=== PATIENT | female | born 1955 | race Caucasian/White ===

== ENCOUNTER 2017-07-04 19:37 | Observation (INO) | payer OTHER ==
[2017-07-04] MEDS ORDERED: Ondansetron 4 MG/2 ML SDV IVPUSH ONE (19:49)
[2017-07-04] MEDS ORDERED: Sodium Chloride 0.9% 1,000 ML IV ONE ×2 (19:49→22:00)
--- NOTE | 2017-07-04 19:53 | EDM.PDOC ---
ED HPI GENERAL MEDICAL PROBLEM - General Chief Complaint: Gastrointestinal Problem Stated Complaint: PT HAS FLU SYMPTOMS Time Seen by Provider: 07/04/17 19:42 Source of Information: Reports: Patient History Limitations: Reports: No Limitations - History of Present Illness INITIAL COMMENTS - FREE TEXT/NARRATIVE: HISTORY AND PHYSICAL: History of present illness: Patient is a 61-year-old female who presents to the emergency room today with complaints of nausea, vomiting and diarrhea since 1:30 this afternoon. She states she has had at least 20 episodes of vomiting and diarrhea today. "I feel weak and tired". Denies any chest pain, shortness of breath or dysuria. She denies any chest pain, shortness of breath, fever or chills. She denies any recent antibiotic use or travel. Review of systems: As per history of present illness and below otherwise all systems reviewed and negative. Past medical history: As per history of present illness and as reviewed below otherwise noncontributory. Surgical history: As per history of present illness and as reviewed below otherwise noncontributory. Social history: No reported history of drug or alcohol abuse. Family history: As per history of present illness and as reviewed below otherwise noncontributory. Physical exam: General: Well-developed and well-nourished 61-year-old female. Alert and oriented. Nontoxic appearing and in no acute distress HEENT: Atraumatic, normocephalic, pupils reactive, negative for conjunctival pallor or scleral icterus, mucous membranes moist, throat clear, neck supple, nontender, trachea midline. Lungs: Clear to auscultation, breath sounds equal bilaterally, chest nontender. Heart: S1S2, regular rate and rhythm - tachycardia Abdomen: Soft, nondistended, diffuse non-specific tenderness. No rebound tenderness. Negative for masses or hepatosplenomegaly. Negative for costovertebral tenderness. Pelvis: Stable nontender. Genitourinary: Deferred. Rectal: Deferred. Extremities: Atraumatic, negative for cords or calf pain. Neurovascular unremarkable. Neuro: Awake, alert, oriented. Cranial nerves II through XII unremarkable. Cerebellum unremarkable. Motor and sensory unremarkable throughout. Exam nonfocal. CBC is a white count of 11.17. Negative CMP, amylase, lipase, and influenza. EKG shows sinus rhythm with tachycardia of 110. UA demonstrates a UTI with +3 bacteria, 15-20 WBCs (will add a urine culture). Patient has had 1 loose stool since being here over the past 2 hours. Vital signs have improved. Patient continues to be up and down to the bathroom to have loose stools. Hospitalist was consulted, agreeable to keeping the patient overnight for observation. Diagnostics: CBC, CMP, amylase, lipase, UA, EKG, stool study Therapeutics: IV fluid, Zofran Impression: #1 Nausea and vomiting #2 Diarrhea #3 UTI #4 Dehydration Plan: Observation admission Definitive disposition and diagnosis as appropriate pending reevaluation and review of above. 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: Neurological History: Reports: Cerebral Aneurysms Oncologic (Cancer) History: Reports: None - Infectious Disease History Infectious Disease History: Reports: Chicken Pox, Mumps - Past Surgical History Female Surgical History: Reports: Hysterectomy, Ureteral Stent Endocrine Surgical History: 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 Musculoskeletal Surgical History: Reports: Other (See Below) Social & Family History - Family History Cardiac: Reports: [place], Other (See Below) Other Cardiac Family History: heart disease Respiratory: Reports: None Psychiatric: Reports: Eating Disorders Endocrine/Metabolic: Reports: Diabetes, type II Oncologic: Reports: Colon - Tobacco Use Smoking Status *Q: Never Smoker Second Hand Smoke Exposure: No - Recreational Drug Use Recreational Drug Use: No ED ROS GENERAL - Review of Systems Review Of Systems: ROS reveals no pertinent complaints other than HPI. ED EXAM, GI/ABD - Physical Exam Exam: See Below (See dictation) Course - Vital Signs Last Recorded V/S: Last Vital Signs Temp 98.3 F 07/06/17 08:00 Pulse 73 07/06/17 08:00 Resp 18 07/06/17 08:00 BP 102/69 07/06/17 08:00 Pulse Ox 96 07/06/17 08:00 - Orders/Labs/Meds Labs: Laboratory Tests 07/04/17 07/04/17 07/04/17 Range/Units 19:58 19:58 20:30 WBC 11.17 H (4.0-11.0) K/uL RBC 4.60 (4.30-5.90) M/uL Hgb 14.1 (12.0-16.0) g/dL Hct 42.0 (36.0-46.0) % MCV 91.3 (80.0-98.0) fL MCH 30.7 (27.0-32.0) pg MCHC 33.6 (31.0-37.0) g/dL RDW Std Deviation 45.4 (28.0-62.0) fl RDW Coeff of Jason 14 (11.0-15.0) % Plt Count 301 (150-400) K/uL MPV 9.10 (7.40-12.00) fL Neut % (Auto) 90.7 H (48.0-80.0) % Lymph % (Auto) 3.8 L (16.0-40.0) % [place] % (Auto) 4.7 (0.0-15.0) % Eos % (Auto) 0.7 (0.0-7.0) % Baso % (Auto) 0.1 (0.0-1.5) % Neut # (Auto) 10.1 H (1.4-5.7) K/uL Lymph # (Auto) 0.4 L (0.6-2.4) K/uL [place] # (Auto) 0.5 (0.0-0.8) K/uL Eos # (Auto) 0.1 (0.0-0.7) K/uL Baso # (Auto) 0.0 (0.0-0.1) K/uL Nucleated RBC % 0.0 /100WBC Nucleated RBCs # 0 K/uL Sodium 141 (136-146) mmol/L Potassium 4.3 (3.5-5.1) mmol/L Chloride 106 (98-110) mmol/L Carbon Dioxide 25 (21-31) mmol/L BUN 16 (6.0-23.0) mg/dL Creatinine 0.9 (0.6-1.5) mg/dL Est Cr Clr Drug Dosing TNP Estimated GFR (MDRD) > 60.0 ml/min Glucose 143 H (60-110) mg/dL Calcium 9.3 (8.8-10.8) mg/dL Total Bilirubin 0.6 (0.1-1.5) mg/dL AST 17 (5-40) IU/L ALT 22 (8-54) IU/L Alkaline Phosphatase 83 (40-150) Total Protein 7.2 (6.0-8.0) g/dL Albumin 4.1 (3.4-4.8) g/dL Globulin 3.1 (2.0-3.5) g/dL Albumin/Globulin Ratio 1.3 (1.3-2.8) Amylase 48 (10-90) U/L Lipase 30 (7-80) U/L Urine Color YELLOW Urine Appearance CLOUDY Urine pH 7.0 (5.0-8.0) Ur Specific [place] 1.020 (1.001-1.035) Urine Protein NEGATIVE (NEGATIVE) mg/dL Urine Glucose (UA) NEGATIVE (NEGATIVE) mg/dL Urine Ketones NEGATIVE (NEGATIVE) mg/dL Urine Occult Blood NEGATIVE (NEGATIVE) Urine Nitrite NEGATIVE (NEGATIVE) Urine Bilirubin NEGATIVE (NEGATIVE) Urine Urobilinogen 0.2 (<2.0) EU/dL Ur Leukocyte Esterase LARGE (NEGATIVE) Urine RBC 3-5 (0-2/HPF) Urine WBC 15-20 (0-5/HPF) Ur Epithelial Cells MANY (NONE-FEW) Urine Bacteria 3+ H (NEGATIVE) Meds: Medications Discontinued Medications Generic Name Dose Route Start Last Admin Trade Name Freq PRN Reason Stop Dose Admin Acetaminophen 650 mg 07/04/17 19:57 07/04/17 20:18 Tylenol PO 07/04/17 19:58 650 mg NOW ONE Administration Acetaminophen 650 mg 07/04/17 23:58 07/06/17 02:53 Tylenol PO 650 mg Q4H PRN Administration Pain Sodium Chloride 1,000 mls @ 999 mls/hr 07/04/17 19:49 07/04/17 20:19 Normal Saline IV 07/04/17 20:49 999 mls/hr STAT ONE Administration Levofloxacin/Dextrose 750 mg/ 150 mls @ 100 mls/hr 07/04/17 22:00 07/04/17 22 :27 Premix IV 07/04/17 23:29 100 mls/hr ONETIME ONE Administration Sodium Chloride 1,000 mls @ 125 mls/hr 07/04/17 22:00 07/04/17 22:26 Normal Saline IV 07/05/17 05:59 125 mls/hr STAT ONE Administration Levofloxacin/Dextrose 750 mg/ 150 mls @ 100 mls/hr 07/05/17 22:30 07/05/17 22 :18 Premix IV 100 mls/hr Q24H GLEN Administration Sodium Chloride 1,000 mls @ 125 mls/hr 07/05/17 03:00 07/06/17 00:52 Normal Saline IV 125 mls/hr ASDIRECTED GLEN Administration Iopamidol 200 ml 07/04/17 20:00 07/05/17 00:29 Isovue Multipack-370 (76%) IVPUSH 07/04/17 20:01 200 ml ONETIME ONE Administration Ketorolac Tromethamine 30 mg 07/04/17 19:54 07/04/17 20:16 Toradol IVPUSH 07/04/17 19:55 30 mg ONETIME ONE Administration Ondansetron HCl 4 mg 07/04/17 19:49 07/04/17 20:15 Zofran IVPUSH 07/04/17 19:50 4 mg ONETIME ONE Administration Ondansetron HCl 4 mg 07/04/17 23:59 07/05/17 02:37 Zofran IVPUSH 4 mg Q3H PRN Administration Nausea/Vomiting Departure - Departure Time of Disposition: 11:37 Disposition: Refer to Observation Clinical Impression: Dehydration UTI (urinary tract infection) Qualifiers: Urinary tract infection type: site unspecified Hematuria presence: without hematuria Qualified Code(s): N39.0 - Urinary tract infection, site not specified Diarrhea Qualifiers: Diarrhea type: unspecified type Qualified Code(s): R19.7 - Diarrhea, unspecified - Discharge Information
[2017-07-04] MEDS ORDERED: Ketorolac 30 MG/ML SDV IVPUSH ONE (19:54)
[2017-07-04] MEDS ORDERED: Acetaminophen 325 MG Tab PO ONE (19:57)
[2017-07-04] MEDS ORDERED: Iopamidol 755 MG/ML 200 ML Multipack Bottle IVPUSH ONE (20:00)
[2017-07-04 20:36] LABS: CHLORIDE,CL 106 mmol/L (98-110); SODIUM,NA 141 mmol/L (136-146)
[2017-07-04] MEDS ORDERED: Levofloxacin/Dextrose 5%-Water 750 MG in Premix Bag 1 BAG IV ONE (22:00)
[2017-07-04] MEDS ORDERED: Ondansetron 4 MG/2 ML SDV IVPUSH PRN (23:59)
[2017-07-05 05:55] LABS: CHLORIDE,CL 110 mmol/L (98-110); SODIUM,NA 139 mmol/L (136-146)
[2017-07-05] MEDS: Sodium Chloride 0.9% 1,000 ML IV SCH ×2 (07:34→15:41)
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
--- NOTE | 2017-07-05 11:05 | CT ---
EXAM DATE: 07/04/17 PATIENT'S AGE: 61 Patient: SHEKHAR SOW Facility: [place], [place] Site . Site : 1955 Study: CT Abdomen/Pelvis [id number] 9:55:28 PM Ordering Physician: Doctor Hernandez Final Report: INDICATION: Abdominal pain. Vomiting and diarrhea. TECHNIQUE: CT abdomen and pelvis acquired with 100 cc Isovue 370 IV contrast. COMPARISON: April 14, 2016. FINDINGS: Lower chest: Unremarkable. Liver: Unremarkable. Normal in size and attenuation. No masses. Gallbladder and bile ducts: Multiple stones and sludge are present in the gallbladder, unchanged. No sign of inflammation or biliary dilatation. Pancreas: Unremarkable. No mass or inflammation. Spleen: Unremarkable. Normal in size. No masses. Adrenal glands: Unremarkable. No nodules. Kidneys: Scarring is present in the right kidney. Kidneys are otherwise unremarkable. GI tract: There is distal diverticulosis without acute inflammation. GI tract is otherwise within normal limits in caliber and appearance. Vasculature: Unremarkable. Lymph nodes: No lymphadenopathy. Omentum/Peritoneum/Abdominal Wall: Unremarkable. No sign of mass or infiltration. No free air or significant free fluid. Pelvis: Uterus is absent. Otherwise unremarkable pelvis. Bones: Unremarkable for age. IMPRESSION: 1. No acute or significant findings and no changes from the prior exam. Specifically, the GI tract is unremarkable except for distal diverticulosis. 2. Stable cholelithiasis without CT evidence of cholecystitis. Please note that all CT scans at this facility use dose modulation, iterative reconstruction, and/or weight-based dosing when appropriate to reduce radiation dose to as low as reasonably achievable. Dictated by Hardeep Bashir MD @ Jul 04 2017 9:58PM (Electronic Signature) Report Signed by Proxy. GOLDEN
[2017-07-05] MEDS: Acetaminophen 325 MG Tab PO PRN (22:23)
[2017-07-05] MEDS ORDERED: Levofloxacin/Dextrose 5%-Water 750 MG in Premix Bag 1 BAG IV SCH (22:30)
[2017-07-06] MEDS: Sodium Chloride 0.9% 1,000 ML IV SCH (00:52)
[2017-07-06] MEDS: Acetaminophen 325 MG Tab PO PRN (02:53)
[2017-07-06 04:43] LABS: CHLORIDE,CL 116 mmol/L (98-110); SODIUM,NA 143 mmol/L (136-146)
[2017-07-06 09:34] VITALS: BP 102/69
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
== END 2017-07-06 09:45 | disposition home or self-care (01) ==
LOC: MW.ED 19:37 → MW.MS 22:00
PROVIDERS: ADMIT Internal Medicine; ATTEND Internal Medicine
DX: A08.4 Viral intestinal infection, unspecified (principal); R11.2 Nausea with vomiting, unspecified; N39.0 Urinary tract infection, site not specified; E66.9 Obesity, unspecified; N20.0 Calculus of kidney; Z98.890 Other specified postprocedural states; Z91.048 Other nonmedicinal substance allergy status; Z88.5 Allergy status to narcotic agent; Z68.30 Body mass index [BMI] 30.0-30.9, adult; Z90.89 Acquired absence of other organs; Z90.49 Acquired absence of other specified parts of digestive tract; Z90.710 Acquired absence of both cervix and uterus
CPT/HCPCS: 36415; 74177; 80048; 80053; 81001; 82150; 83690; 85025; 87046; 87086; 87324; 87328; 87329; 87804; 87899; 96361; 96365; 96366; 96375; 96376; 99285; A9270; G0378; J1885; J1956; J2405; J7040; Q9967; 99284

== ENCOUNTER 2017-08-22 21:27 | Emergency (ER) | payer OTHER ==
[2017-08-22 21:41] VITALS: BP 124/62
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
--- NOTE | 2017-08-23 10:04 | CR ---
EXAM DATE: 08/22/17 PATIENT'S AGE: 61 Patient: SHEKHAR SOW Facility: [place], [place] Site . Site : [id number] Study: XRay Knee Right [id number]/19/2018 10:09:04 PM Ordering Physician: Doctor Hernandez Final Report: INDICATION : Status post fall. 61-year-old female. TECHNIQUE : Right knee, three views. FINDINGS : Right knee alignment normal. Moderate joint effusion in the suprapatellar recess. Patella alignment normal. No fracture identified. No radiopaque soft tissue abnormality. IMPRESSION : Right knee joint effusion. No acute fracture. Dictated by Roberto Caldwell MD @ 08/22/2017 10:12:27 PM Dictated by: Roberto Caldwell MD @ 08/22/2017 22:12:34 (Electronic Signature) Report Signed by Proxy. MTDGinette
== END 2017-08-22 22:34 | disposition home or self-care (01) ==
LOC: MW.ED 21:27
DX: S89.91XA Unspecified injury of right lower leg, initial encounter (principal); Z88.5 Allergy status to narcotic agent; W19.XXXA Unspecified fall, initial encounter
CPT/HCPCS: 73562-26-RT; 73562-RT; 99283

== ENCOUNTER 2018-08-20 00:05 | Emergency (ER) | payer OTHER ==
[2018-08-20] MEDS ORDERED: Sodium Chloride 0.9% 1,000 ML IV ONE (00:08)
[2018-08-20] MEDS ORDERED: Ondansetron 4 MG/2 ML SDV IVPUSH ONE (00:16)
[2018-08-20] MEDS ORDERED: Pantoprazole 40 MG Vial IVPUSH ONE (00:32)
[2018-08-20] MEDS ORDERED: Ketorolac 30 MG/ML SDV IVPUSH ONE (00:32)
[2018-08-20] MEDS ORDERED: Sodium Chloride 0.9% 20 ML ONE (00:40)
--- NOTE | 2018-08-20 01:04 | CR ---
HISTORY: Dizziness COMPARISON: 05/24/2015 FINDINGS: An erect AP view of the chest was obtained at 0019 hours. The lungs remain clear. No focal or diffuse infiltrates are present. The heart remains normal in size. The mediastinum is normal in appearance. The osseous structures are normal in appearance for the patient`s age. IMPRESSION: Normal chest single view. Dictated by Tito Wise MD @ Aug 20 2018 1:01AM Signed by Dr. Tito Wise @ Aug 20 2018 1:02AM
--- NOTE | 2018-08-20 01:18 | CT ---
INDICATION: Dizziness TECHNIQUE: Head CT without contrast. COMPARISON: None FINDINGS: CSF spaces: Within normal limits for age. Brain parenchyma: There are nonspecific low attenuation white matter changes consistent with chronic microvascular disease. No sign of mass, hemorrhage, or midline shift. Skull base and calvarium: The visualized paranasal sinuses and mastoid air cells demonstrate no acute or significant findings. The visualized orbits are grossly unremarkable. No skull fractures. IMPRESSION: 1. No acute findings. 2. Nonspecific white matter disease, typical of chronic microvascular disease. Please note that all CT scans at this facility use dose modulation, iterative reconstruction, and/or weight-based dosing when appropriate to reduce radiation dose to as low as reasonably achievable. Dictated by Kym Wilcox MD @ Aug 20 2018 1:14AM Signed by Dr. Kym Wilcox @ Aug 20 2018 1:16AM
[2018-08-20 01:21] LABS: CHLORIDE,CL 107 mmol/L (98-107); SODIUM,NA 142 mmol/L (136-145)
[2018-08-20] MEDS ORDERED: Levofloxacin 500 MG Tab PO ONE (02:10)
--- NOTE | 2018-08-20 02:14 | EDM.PDOC ---
ED HPI GENERAL MEDICAL PROBLEM - General Chief Complaint: General Stated Complaint: PT SPOKE TO NURSE Time Seen by Provider: 08/20/18 02:11 Source of Information: Reports: Patient - History of Present Illness INITIAL COMMENTS - FREE TEXT/NARRATIVE: HISTORY AND PHYSICAL: History of present illness: []Patient presents with dizziness that began today does not seem to be associated with head position, waxes and wanes, she has not unstable and is not in any distress is able to ambulate without difficulty is otherwise not ill- appearing No fever nausea vomiting chills sweats no chest pain shortness breath headache or palpitation no bowel or urine symptoms Review of systems: As per history of present illness and below otherwise all systems reviewed and negative. Past medical history: As per history of present illness and as reviewed below otherwise noncontributory. Surgical history: As per history of present illness and as reviewed below otherwise noncontributory. Social history: No reported history of drug or alcohol abuse. Family history: As per history of present illness and as reviewed below otherwise noncontributory. Physical exam: HEENT: Atraumatic, normocephalic, pupils reactive, negative for conjunctival pallor or scleral icterus, mucous membranes moist, throat clear, neck supple, nontender, trachea midline. Lungs: Clear to auscultation, breath sounds equal bilaterally, chest nontender. Heart: S1S2, regular, negative for clicks, rubs, or JVD. Abdomen: Soft, nondistended, nontender. Negative for masses or hepatosplenomegaly. Negative for costovertebral tenderness. Pelvis: Stable nontender. Genitourinary: Deferred. Rectal: Deferred. Extremities: Atraumatic, negative for cords or calf pain. Neurovascular unremarkable. Neuro: Awake, alert, oriented. Cranial nerves II through XII unremarkable. Cerebellum unremarkable. Motor and sensory unremarkable throughout. Exam nonfocal. Diagnostics: [CBC CMP troponin UA Head CT no contrast Chest 1 view ] Therapeutics: [ normal saline Zofran 8 mg IV Levaquin 500 by mouth nowand daily Patient offered observation R she requests leave as she would like to go home declines admission for observation ] Impression: [ UTI Dizziness ] Definitive disposition and diagnosis as appropriate pending reevaluation and review of above. - Related Data Allergies Allergy/AdvReac Type Severity Reaction Status Date / Time adhesive tape Allergy Blisters Verified 08/22/17 21:32 codeine Allergy Abdominal Verified 08/22/17 21:32 Pain Home Meds: Home Meds . 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: Musculoskeletal History: Reports: Fracture Neurological History: Reports: Cerebral Aneurysms Endocrine/Metabolic History: Reports: Obesity/BMI 30+ Oncologic (Cancer) History: Reports: None - Infectious Disease History Infectious Disease History: Reports: Chicken Pox, Measles, Mumps - Past Surgical History Female Surgical History: Reports: Hysterectomy, Ureteral Stent Endocrine Surgical History: 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 Musculoskeletal Surgical History: Reports: Other (See Below) Social & Family History - Family History Family Medical History: Noncontributory Cardiac: Reports: [place], Other (See Below) Other Cardiac Family History: heart disease Respiratory: Reports: None Psychiatric: Reports: Eating Disorders Endocrine/Metabolic: Reports: Diabetes, type II Oncologic: Reports: Colon - Tobacco Use Smoking Status *Q: Never Smoker - Caffeine Use Caffeine Use: Reports: Coffee, Soda Caffeine Use Comment: 2 cups daily - Recreational Drug Use Recreational Drug Use: No - Living Situation & Occupation 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 situation: Reports: 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) ED ROS GENERAL - Review of Systems Review Of Systems: See Below ED EXAM, GENERAL - Physical Exam Exam: See Below Course - Vital Signs Last Recorded V/S: Last Vital Signs Temp 98.1 F 08/20/18 00:13 Pulse 73 08/20/18 01:33 Resp 20 08/20/18 01:33 BP 109/47 L 08/20/18 01:33 Pulse Ox 96 08/20/18 01:33 - Orders/Labs/Meds Orders: Active Orders 24 hr Category Date Time Status CULTURE URINE [RM] Stat Lab 08/20/18 00:50 Received levoFLOXacin [Levaquin] Med 08/20/18 02:10 Once 500 mg PO ONETIME ONE Labs: Laboratory Tests 08/20/18 08/20/18 08/20/18 Range/Units 00:38 00:38 00:38 WBC 7.53 (4.0-11.0) K/uL RBC 4.14 L (4.30-5.90) M/uL Hgb 12.8 (12.0-16.0) g/dL Hct 38.4 (36.0-46.0) % MCV 92.8 (80.0-98.0) fL MCH 30.9 (27.0-32.0) pg MCHC 33.3 (31.0-37.0) g/dL RDW Std Deviation 45.8 (28.0-62.0) fl RDW Coeff of Jason 14 (11.0-15.0) % Plt Count 253 (150-400) K/uL MPV 9.10 (7.40-12.00) fL Neut % (Auto) 44.8 L (48.0-80.0) % Lymph % (Auto) 44.5 H (16.0-40.0) % [place] % (Auto) 7.3 (0.0-15.0) % Eos % (Auto) 2.9 (0.0-7.0) % Baso % (Auto) 0.5 (0.0-1.5) % Neut # (Auto) 3.4 (1.4-5.7) K/uL Lymph # (Auto) 3.4 H (0.6-2.4) K/uL [place] # (Auto) 0.6 (0.0-0.8) K/uL Eos # (Auto) 0.2 (0.0-0.7) K/uL Baso # (Auto) 0.0 (0.0-0.1) K/uL Nucleated RBC % 0.0 /100WBC Nucleated RBCs # 0 K/uL Sodium 142 (136-145) mmol/L Potassium 4.2 (3.5-5.1) mmol/L Chloride 107 (98-107) mmol/L Carbon Dioxide 28.3 (21.0-32.0) mmol/L BUN 17 (7.0-18.0) mg/dL Creatinine 0.9 (0.6-1.0) mg/dL Est Cr Clr Drug Dosing 54.30 mL/min Estimated GFR (MDRD) > 60.0 ml/min Glucose 114 H (74-106) mg/dL Calcium 8.8 (8.5-10.1) mg/dL Total Bilirubin 0.2 (0.2-1.0) mg/dL AST 13 L (15-37) IU/L ALT 18 (14-63) IU/L Alkaline Phosphatase 79 (46-116) U/L Troponin I < 0.050 (0.000-0.056) ng/mL Total Protein 6.8 (6.4-8.2) g/dL Albumin 3.1 L (3.4-5.0) g/dL Globulin 3.7 (2.6-4.0) g/dL Albumin/Globulin Ratio 0.8 L (0.9-1.6) Lipase 203 (73-393) U/L Urine Color Urine Appearance Urine pH (5.0-8.0) Ur Specific [place] (1.001-1.035) Urine Protein (NEGATIVE) mg/dL Urine Glucose (UA) (NEGATIVE) mg/dL Urine Ketones (NEGATIVE) mg/dL Urine Occult Blood (NEGATIVE) Urine Nitrite (NEGATIVE) Urine Bilirubin (NEGATIVE) Urine Urobilinogen (<2.0) EU/dL Ur Leukocyte Esterase (NEGATIVE) Urine RBC (0-2/HPF) Urine WBC (0-5/HPF) Ur Epithelial Cells (NONE-FEW) Urine Bacteria (NEGATIVE) 08/20/18 Range/Units 00:50 WBC (4.0-11.0) K/uL RBC (4.30-5.90) M/uL Hgb (12.0-16.0) g/dL Hct (36.0-46.0) % MCV (80.0-98.0) fL MCH (27.0-32.0) pg MCHC (31.0-37.0) g/dL RDW Std Deviation (28.0-62.0) fl RDW Coeff of Jason (11.0-15.0) % Plt Count (150-400) K/uL MPV (7.40-12.00) fL Neut % (Auto) (48.0-80.0) % Lymph % (Auto) (16.0-40.0) % [place] % (Auto) (0.0-15.0) % Eos % (Auto) (0.0-7.0) % Baso % (Auto) (0.0-1.5) % Neut # (Auto) (1.4-5.7) K/uL Lymph # (Auto) (0.6-2.4) K/uL [place] # (Auto) (0.0-0.8) K/uL Eos # (Auto) (0.0-0.7) K/uL Baso # (Auto) (0.0-0.1) K/uL Nucleated RBC % /100WBC Nucleated RBCs # K/uL Sodium (136-145) mmol/L Potassium (3.5-5.1) mmol/L Chloride (98-107) mmol/L Carbon Dioxide (21.0-32.0) mmol/L BUN (7.0-18.0) mg/dL Creatinine (0.6-1.0) mg/dL Est Cr Clr Drug Dosing mL/min Estimated GFR (MDRD) ml/min Glucose (74-106) mg/dL Calcium (8.5-10.1) mg/dL Total Bilirubin (0.2-1.0) mg/dL AST (15-37) IU/L ALT (14-63) IU/L Alkaline Phosphatase (46-116) U/L Troponin I (0.000-0.056) ng/mL Total Protein (6.4-8.2) g/dL Albumin (3.4-5.0) g/dL Globulin (2.6-4.0) g/dL Albumin/Globulin Ratio (0.9-1.6) Lipase (73-393) U/L Urine Color YELLOW Urine Appearance CLEAR Urine pH 5.5 (5.0-8.0) Ur Specific [place] <= 1.005 (1.001-1.035) Urine Protein NEGATIVE (NEGATIVE) mg/dL Urine Glucose (UA) NEGATIVE (NEGATIVE) mg/dL Urine Ketones NEGATIVE (NEGATIVE) mg/dL Urine Occult Blood NEGATIVE (NEGATIVE) Urine Nitrite NEGATIVE (NEGATIVE) Urine Bilirubin NEGATIVE (NEGATIVE) Urine Urobilinogen 0.2 (<2.0) EU/dL Ur Leukocyte Esterase LARGE H (NEGATIVE) Urine RBC 0-2 (0-2/HPF) Urine WBC 15-20 (0-5/HPF) Ur Epithelial Cells MODERATE (NONE-FEW) Urine Bacteria 2+ H (NEGATIVE) Meds: Medications Discontinued Medications Generic Name Dose Route Start Last Admin Trade Name Freq PRN Reason Stop Dose Admin Sodium Chloride 1,000 mls @ 999 mls/hr 08/20/18 00:08 08/20/18 00:52 Normal Saline IV 08/20/18 01:08 999 mls/hr STAT ONE Administration Sodium Chloride Confirm 08/20/18 00:40 08/20/18 00:54 Normal Saline Administered 08/20/18 00:41 20 mls/hr Dose Administration 20 mls @ as directed .ROUTE .STK-MED ONE Ketorolac Tromethamine 30 mg 08/20/18 00:32 08/20/18 00:53 Toradol IVPUSH 08/20/18 00:33 30 mg ONETIME ONE Administration Ondansetron HCl 8 mg 08/20/18 00:16 08/20/18 00:52 Zofran IVPUSH 08/20/18 00:17 8 mg ONETIME ONE Administration Pantoprazole Sodium 80 mg 08/20/18 00:32 08/20/18 00:54 Protonix Iv IVPUSH 08/20/18 00:33 80 mg .BOLUS ONE Administration Departure - Departure Time of Disposition: 02:13 Disposition: Home, Self-Care 01 Condition: Good Clinical Impression: Dizziness UTI (urinary tract infection) Qualifiers: Urinary tract infection type: site unspecified Hematuria presence: without hematuria Qualified Code(s): N39.0 - Urinary tract infection, site not specified - Discharge Information Referrals: PCP,None [Primary Care Provider] - Additional Instructions: The following information is given to patients seen in the emergency department who are being discharged to home. This information is to outline your options for follow-up care. We provide all patients seen in our emergency department with a follow-up referral. The need for follow-up, as well as the timing and circumstances, are variable depending upon the specifics of your emergency department visit. If you don't have a primary care physician on staff, we will provide you with a referral. We always advise you to contact your personal physician following an emergency department visit to inform them of the circumstance of the visit and for follow-up with them and/or the need for any referrals to a consulting specialist. The emergency department will also refer you to a specialist when appropriate. This referral assures that you have the opportunity for follow-up care with a specialist. All of these measure are taken in an effort to provide you with optimal care, which includes your follow-up. Under all circumstances we always encourage you to contact your private physician who remains a resource for coordinating your care. When calling for follow-up care, please make the office aware that this follow-up is from your recent emergency room visit. If for any reason you are refused follow-up, please contact the [facility] emergency department at and asked to speak to the emergency department charge nurse. - My Orders Last 24 Hours: My Active Orders 08/20/18 00:50 CULTURE URINE [RM] Stat 08/20/18 02:10 levoFLOXacin [Levaquin] 500 mg PO ONETIME ONE - Assessment/Plan Last 24 Hours: My Active Orders 08/20/18 00:50 CULTURE URINE [RM] Stat 08/20/18 02:10 levoFLOXacin [Levaquin] 500 mg PO ONETIME ONE
[2018-08-20 03:47] VITALS: BP 116/64
== END 2018-08-20 02:30 | disposition home or self-care (01) ==
LOC: MW.ED 00:05
DX: N39.0 Urinary tract infection, site not specified (principal); R42 Dizziness and giddiness; Z91.09 Other allergy status, other than to drugs and biological substances; Z88.5 Allergy status to narcotic agent
CPT/HCPCS: 36415; 70450; 71045; 80053; 81001; 83690; 84484; 85025; 87086; 96361; 96374; 96375; 99284; A9270; C9113; J1885; J2405; J7040

== ENCOUNTER 2019-02-05 15:32 | Observation (INO) | payer OTHER ==
[2019-02-05] MEDS ORDERED: Sodium Chloride 0.9% 2.5 ML Syringe FLUSH PRN (15:47)
[2019-02-05] MEDS ORDERED: Sodium Chloride 0.9% 10 ML Syringe FLUSH PRN (15:47)
[2019-02-05] MEDS ORDERED: Morphine 4 MG/ML Syringe IVPUSH ONE (15:55)
[2019-02-05] MEDS ORDERED: Sodium Chloride 0.9% 1,000 ML IV ONE ×2 (15:55→18:00)
--- NOTE | 2019-02-05 15:55 | EDM.PDOC ---
ED HPI GENERAL MEDICAL PROBLEM - General Chief Complaint: Abdominal Pain Stated Complaint: STOMACH PAIN Time Seen by Provider: 02/05/19 15:55 Source of Information: Reports: Patient History Limitations: Reports: No Limitations - History of Present Illness INITIAL COMMENTS - FREE TEXT/NARRATIVE: HISTORY AND PHYSICAL: History of present illness: Patient is a 63-year-old female presents to the ED with complaint of right upper quadrant pain. She states the pain woke her up from sleep at 2:00 this morning and has progressively gotten worse through the day. She was going to wait to see her provider tomorrow but states she could not take the pain and came to the ED. she has been nauseous but denies vomiting, diarrhea, fevers, chills, chest pain, shortness of breath, dysuria, hematuria. She states the pain wraps around her right side into her back. Past surgical history includes appendectomy, hysterectomy, right ureteral stent for history of kidney stones. Review of systems: As per history of present illness and below otherwise all systems reviewed and negative. Past medical history: As per history of present illness and as reviewed below otherwise noncontributory. Surgical history: As per history of present illness and as reviewed below otherwise noncontributory. Social history: No reported history of drug or alcohol abuse. Family history: As per history of present illness and as reviewed below otherwise noncontributory. Physical exam: General: Patient sitting comfortably in no acute distress and nontoxic appearing. Patient is tearful on examination HEENT: Atraumatic, normocephalic, pupils reactive, negative for conjunctival pallor or scleral icterus, mucous membranes moist, throat clear, neck supple, nontender, trachea midline. No meningeal signs. Lungs: Clear to auscultation, breath sounds equal bilaterally, chest nontender. Heart: S1S2, regular, negative for clicks, rubs, or overt murmur. Abdomen: Epigastric and RUQ tenderness to palpation. Soft, nondistended. Negative for masses or hepatosplenomegaly. Negative for costovertebral tenderness. No rigidity, rebound, guarding. Pelvis: Stable nontender. Genitourinary: Deferred. Rectal: Deferred. Extremities: Atraumatic, negative for cords or calf pain. Neurovascular unremarkable. Neuro: Awake, alert, oriented. Cranial nerves II through XII unremarkable. Cerebellum unremarkable. Motor and sensory unremarkable throughout. Exam nonfocal. Notes: Diagnostics: CBC, CMP, lipase, UA, RUQ US Therapeutics: 1L NS IV 4mg Morphine IV 1mg Dilaudid IV Prescriptions: Impression: Cholelithiasis, UTI Plan: Discussed with Dr. Washington, patient will be admitted to observation with IV antibiotics. Definitive disposition and diagnosis as appropriate pending reevaluation and review of above. RUQ Pain Score (Numeric/FACES): 8 - Related Data Allergies Allergy/AdvReac Type Severity Reaction Status Date / Time adhesive tape Allergy Blisters Verified 08/22/17 21:32 codeine Allergy Abdominal Verified 08/22/17 21:32 Pain Home Meds: Home Meds Multivitamin [Multi-Vitamin Daily] 1 tab PO DAILY 02/05/19 [History] Past Medical History - Past Health History Medical/Surgical History: Denies Medical/Surgical History HEENT History: Reports: None Cardiovascular History: Reports: None Other Cardiovascular History: brain aneurysm Respiratory History: Reports: None Gastrointestinal History: Reports: None Genitourinary History: Reports: Renal Calculus Other Genitourinary History: Renal complication W Shunt placement 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: Musculoskeletal History: Reports: Fracture Neurological History: Reports: Cerebral Aneurysms Endocrine/Metabolic History: Reports: Obesity/BMI 30+ Oncologic (Cancer) History: Reports: None - Infectious Disease History Infectious Disease History: Reports: Measles, Mumps - Past Surgical History Female Surgical History: Reports: Hysterectomy, Lithotripsy/ESWL, Ureteral Stent Endocrine Surgical History: 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 Musculoskeletal Surgical History: Reports: Other (See Below) Social & Family History - Family History Family Medical History: Noncontributory Cardiac: Reports: [place], Other (See Below) Other Cardiac Family History: heart disease Respiratory: Reports: None Psychiatric: Reports: Eating Disorders Endocrine/Metabolic: Reports: Diabetes, type II Oncologic: Reports: Colon - Tobacco Use Smoking Status *Q: Never Smoker - Caffeine Use Caffeine Use: Reports: Coffee, Soda Caffeine Use Comment: 2 cups daily - Recreational Drug Use Recreational Drug Use: No - Living Situation & Occupation 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 ED EXAM, GI/ABD - Physical Exam Exam: See Below (see dictation) Course - Vital Signs Last Recorded V/S: Last Vital Signs Temp 97.1 F 02/05/19 15:40 Pulse 96 02/05/19 15:40 Resp 14 02/05/19 15:40 BP 124/82 02/05/19 15:40 Pulse Ox 97 02/05/19 15:40 - Orders/Labs/Meds Orders: Active Orders 24 hr Category Date Time Status Abdomen Ltd [US] Stat Exams 02/05/19 16:45 Taken CULTURE URINE [RM] Stat Lab 02/05/19 16:59 Received Sodium Chloride 0.9% [Saline Flush] Med 02/05/19 15:47 Active 10 ml FLUSH ASDIRECTED PRN Sodium Chloride 0.9% [Saline Flush] Med 02/05/19 15:47 Active 2.5 ml FLUSH ASDIRECTED PRN Saline Lock Insert [OM.PC] Stat Oth 02/05/19 15:47 Ordered Medication Orders Sodium Chloride (Saline Flush) 10 ml FLUSH ASDIRECTED PRN PRN Reason: Keep Vein Open Sodium Chloride (Saline Flush) 2.5 ml FLUSH ASDIRECTED PRN PRN Reason: Keep Vein Open Labs: Laboratory Tests 02/05/19 02/05/19 02/05/19 Range/Units 16:05 16:05 16:59 WBC 7.43 (4.0-11.0) K/uL RBC 4.35 (4.30-5.90) M/uL Hgb 13.5 (12.0-16.0) g/dL Hct 40.6 (36.0-46.0) % MCV 93.3 (80.0-98.0) fL MCH 31.0 (27.0-32.0) pg MCHC 33.3 (31.0-37.0) g/dL RDW Std Deviation 48.4 (28.0-62.0) fl RDW Coeff of Jason 14 (11.0-15.0) % Plt Count 236 (150-400) K/uL MPV 9.90 (7.40-12.00) fL Neut % (Auto) 55.6 (48.0-80.0) % Lymph % (Auto) 34.5 (16.0-40.0) % [place] % (Auto) 7.3 (0.0-15.0) % Eos % (Auto) 2.2 (0.0-7.0) % Baso % (Auto) 0.4 (0.0-1.5) % Neut # (Auto) 4.1 (1.4-5.7) K/uL Lymph # (Auto) 2.6 H (0.6-2.4) K/uL [place] # (Auto) 0.5 (0.0-0.8) K/uL Eos # (Auto) 0.2 (0.0-0.7) K/uL Baso # (Auto) 0.0 (0.0-0.1) K/uL Nucleated RBC % 0.0 /100WBC Nucleated RBCs # 0 K/uL Sodium 144 (136-145) mmol/L Potassium 3.9 (3.5-5.1) mmol/L Chloride 106 (98-107) mmol/L Carbon Dioxide 27.5 (21.0-32.0) mmol/L BUN 8 (7.0-18.0) mg/dL Creatinine 0.8 (0.6-1.0) mg/dL Est Cr Clr Drug Dosing 60.31 mL/min Estimated GFR (MDRD) > 60.0 ml/min Glucose 112 H (74-106) mg/dL Calcium 9.1 (8.5-10.1) mg/dL Total Bilirubin 0.3 (0.2-1.0) mg/dL AST 19 (15-37) IU/L ALT 26 (14-63) IU/L Alkaline Phosphatase 89 (46-116) U/L Total Protein 6.6 (6.4-8.2) g/dL Albumin 3.2 L (3.4-5.0) g/dL Globulin 3.4 (2.6-4.0) g/dL Albumin/Globulin Ratio 0.9 (0.9-1.6) Lipase 122 (73-393) U/L Urine Color YELLOW Urine Appearance SLT CLOUDY Urine pH 5.5 (5.0-8.0) Ur Specific [place] 1.025 (1.001-1.035) Urine Protein NEGATIVE (NEGATIVE) mg/dL Urine Glucose (UA) NEGATIVE (NEGATIVE) mg/dL Urine Ketones NEGATIVE (NEGATIVE) mg/dL Urine Occult Blood NEGATIVE (NEGATIVE) Urine Nitrite NEGATIVE (NEGATIVE) Urine Bilirubin NEGATIVE (NEGATIVE) Urine Urobilinogen 0.2 (<2.0) EU/dL Ur Leukocyte Esterase LARGE H (NEGATIVE) Urine RBC RARE (0-2/HPF) Urine WBC 6-10 (0-5/HPF) Ur Epithelial Cells MANY (NONE-FEW) Amorphous Sediment MODERATE (NEGATIVE) Urine Bacteria 2+ H (NEGATIVE) Urine Mucus MODERATE (NONE-MOD) Meds: Medications Generic Name Dose Route Start Last Admin Trade Name Freq PRN Reason Stop Dose Admin Sodium Chloride 10 ml 02/05/19 15:47 Saline Flush FLUSH ASDIRECTED PRN Keep Vein Open Sodium Chloride 2.5 ml 02/05/19 15:47 Saline Flush FLUSH ASDIRECTED PRN Keep Vein Open Discontinued Medications Generic Name Dose Route Start Last Admin Trade Name Freq PRN Reason Stop Dose Admin Sodium Chloride 1,000 mls @ 999 mls/hr 02/05/19 15:55 02/05/19 16:07 Normal Saline IV 02/05/19 16:55 999 mls/hr STAT ONE Administration Morphine Sulfate 4 mg 02/05/19 15:55 02/05/19 16:07 Morphine IVPUSH 02/05/19 15:56 4 mg ONETIME ONE Administration Departure - Departure Time of Disposition: 17:57 Disposition: Refer to Observation Condition: Good Clinical Impression: UTI (urinary tract infection) Qualifiers: Urinary tract infection type: site unspecified Hematuria presence: without hematuria Qualified Code(s): N39.0 - Urinary tract infection, site not specified Cholelithiasis Qualifiers: Cholelithiasis location: gallbladder Cholecystitis presence: without cholecystitis Biliary obstruction: without biliary obstruction Qualified Code(s) : K80.20 - Calculus of gallbladder without cholecystitis without obstruction - Discharge Information Referrals: PCP,Unknown [Primary Care Provider] - Forms: ED Department Discharge - My Orders Last 24 Hours: My Active Orders 02/05/19 15:47 Sodium Chloride 0.9% [Saline Flush] 10 ml FLUSH ASDIRECTED PRN Sodium Chloride 0.9% [Saline Flush] 2.5 ml FLUSH ASDIRECTED PRN Saline Lock Insert [OM.PC] Stat 02/05/19 16:45 Abdomen Ltd [US] Stat 02/05/19 16:59 CULTURE URINE [RM] Stat - Assessment/Plan Last 24 Hours: My Active Orders 02/05/19 15:47 Sodium Chloride 0.9% [Saline Flush] 10 ml FLUSH ASDIRECTED PRN Sodium Chloride 0.9% [Saline Flush] 2.5 ml FLUSH ASDIRECTED PRN Saline Lock Insert [OM.PC] Stat 02/05/19 16:45 Abdomen Ltd [US] Stat 02/05/19 16:59 CULTURE URINE [RM] Stat
[2019-02-05 16:40] LABS: BLOOD UREA NITROGEN,BUN 8 mg/dL (7.0-18.0); CARBON DIOXIDE,CO2 27.5 mmol/L (21.0-32.0); CHLORIDE,CL 106 mmol/L (98-107); GLUCOSE RANDOM 112 mg/dL (74-106); POTASSIUM,K 3.9 mmol/L (3.5-5.1); SODIUM,NA 144 mmol/L (136-145)
[2019-02-05] MEDS ORDERED: HYDROmorphone 1 MG/ML Syringe IVPUSH ONE (17:57)
[2019-02-05] MEDS ORDERED: cefOXitin 2 GM in Premix Bag 1 BAG IV ONE (17:58)
[2019-02-05] MEDS ORDERED: metroNIDAZOLE/Normal Saline 500 MG in Premix Bag 1 BAG IV ONE (17:58)
[2019-02-05] MEDS ORDERED: Ondansetron 4 MG/2 ML SDV IVPUSH ONE ×3 (18:02→19:03)
--- NOTE | 2019-02-05 18:19 | US ---
Indication: Right upper quadrant pain. Technique: Grayscale and color Doppler ultrasound of the right upper quadrant was performed. Comparison: None Findings: The visualized portion of the pancreas is grossly normal. A large portion of the pancreas is unable to be visualized due to the overlying bowel gas. Mild intrahepatic biliary ductal dilatation is identified. No definite intrahepatic masses are seen. The gallbladder is distended. The gallbladder measures 12.3 x 6.5 cm in size. Mobile debris is identified within the gallbladder. This may represent sludge or layering stones. The gallbladder wall is thickened, measuring 3 mm. No definite pericholecystic free fluid is identified. The common bile duct is dilated measuring 10 mm in size. Within the gallbladder, a 7 millimeter area of debris or sludge is identified. A sonographic Hutchins`s sign is identified. The right kidney measures 8.2 cm in size. Questionably dilated renal pelvis is identified. Impression: Distended gallbladder which contains layering stones or sludge, a 2nd gallbladder wall, dilatation of the common bile duct, positive sonographic Hutchins sign. These findings are worrisome for acute cholecystitis. Additionally, within the common bile duct, an area of heterogeneity is identified which may represent stones or sludge. The right kidney appears small. Dictated by Lanie Washington MD @ Feb 05 2019 6:12PM Signed by Dr. Lanie Washington @ Feb 05 2019 6:16PM
[2019-02-05] MEDS ORDERED: Ondansetron 4 MG/2 ML SDV ONE (19:04)
[2019-02-05] MEDS ORDERED: Levofloxacin/Dextrose 5%-Water 750 MG in Premix Bag 1 BAG IV SCH (21:00)
[2019-02-05] MEDS ORDERED: Pantoprazole 40 MG in Sodium Chloride 0.9% 10 ML IV SCH (21:00)
[2019-02-06] MEDS: Lactated Ringers 1,000 ML IV SCH ×2 (04:20→14:04)
[2019-02-06 06:52] LABS: BLOOD UREA NITROGEN,BUN 7 mg/dL (7.0-18.0); CARBON DIOXIDE,CO2 27.7 mmol/L (21.0-32.0); CHLORIDE,CL 110 mmol/L (98-107); GLUCOSE RANDOM 112 mg/dL (74-106); POTASSIUM,K 4.5 mmol/L (3.5-5.1); SODIUM,NA 144 mmol/L (136-145)
[2019-02-06] MEDS ORDERED: Acetaminophen 325 MG Tab PO PRN (08:18)
[2019-02-06] MEDS ORDERED: Ondansetron 4 MG/2 ML SDV IVPUSH PRN (08:19)
--- NOTE | 2019-02-06 09:20 | PCM.SN ---
- Free Text/Narrative Note: pt seen, chart reviewed; likely symptomatic cholelithiasis; admitted for pain management and iv abx for uti; likely gb surgery in a wk; [id number]
--- NOTE | 2019-02-06 09:32 | PCM.SURGPN ---
- General Info Date of Service: 02/06/19 - Patient Data Vitals - Most Recent: Last Vital Signs Temp 97.6 F 02/06/19 07:37 Pulse 60 02/06/19 07:37 Resp 16 02/06/19 07:37 BP 99/39 L 02/06/19 07:37 Pulse Ox 96 02/06/19 07:37 Weight - Most Recent: 190 lb 14 oz I&O - Last 24 Hours: Intake & Output 02/05/19 02/06/19 02/06/19 22:59 06:59 14:59 Intake Total 1034 Output Total 250 Balance 784 Lab Results Last 24 Hrs: Laboratory Results - last 24 hr 02/05/19 02/05/19 02/05/19 Range/Units 16:05 16:05 16:59 WBC 7.43 (4.0-11.0) K/uL RBC 4.35 (4.30-5.90) M/uL Hgb 13.5 (12.0-16.0) g/dL Hct 40.6 (36.0-46.0) % MCV 93.3 (80.0-98.0) fL MCH 31.0 (27.0-32.0) pg MCHC 33.3 (31.0-37.0) g/dL RDW Std Deviation 48.4 (28.0-62.0) fl RDW Coeff of Jason 14 (11.0-15.0) % Plt Count 236 (150-400) K/uL MPV 9.90 (7.40-12.00) fL Neut % (Auto) 55.6 (48.0-80.0) % Lymph % (Auto) 34.5 (16.0-40.0) % [place] % (Auto) 7.3 (0.0-15.0) % Eos % (Auto) 2.2 (0.0-7.0) % Baso % (Auto) 0.4 (0.0-1.5) % Neut # (Auto) 4.1 (1.4-5.7) K/uL Lymph # (Auto) 2.6 H (0.6-2.4) K/uL [place] # (Auto) 0.5 (0.0-0.8) K/uL Eos # (Auto) 0.2 (0.0-0.7) K/uL Baso # (Auto) 0.0 (0.0-0.1) K/uL Nucleated RBC % 0.0 /100WBC Nucleated RBCs # 0 K/uL Sodium 144 (136-145) mmol/L Potassium 3.9 (3.5-5.1) mmol/L Chloride 106 (98-107) mmol/L Carbon Dioxide 27.5 (21.0-32.0) mmol/L BUN 8 (7.0-18.0) mg/dL Creatinine 0.8 (0.6-1.0) mg/dL Est Cr Clr Drug Dosing 60.31 mL/min Estimated GFR (MDRD) > 60.0 ml/min Glucose 112 H (74-106) mg/dL Calcium 9.1 (8.5-10.1) mg/dL Total Bilirubin 0.3 (0.2-1.0) mg/dL AST 19 (15-37) IU/L ALT 26 (14-63) IU/L Alkaline Phosphatase 89 (46-116) U/L Total Protein 6.6 (6.4-8.2) g/dL Albumin 3.2 L (3.4-5.0) g/dL Globulin 3.4 (2.6-4.0) g/dL Albumin/Globulin Ratio 0.9 (0.9-1.6) Lipase 122 (73-393) U/L Urine Color YELLOW Urine Appearance SLT CLOUDY Urine pH 5.5 (5.0-8.0) Ur Specific [place] 1.025 (1.001-1.035) Urine Protein NEGATIVE (NEGATIVE) mg/dL Urine Glucose (UA) NEGATIVE (NEGATIVE) mg/dL Urine Ketones NEGATIVE (NEGATIVE) mg/dL Urine Occult Blood NEGATIVE (NEGATIVE) Urine Nitrite NEGATIVE (NEGATIVE) Urine Bilirubin NEGATIVE (NEGATIVE) Urine Urobilinogen 0.2 (<2.0) EU/dL Ur Leukocyte Esterase LARGE H (NEGATIVE) Urine RBC RARE (0-2/HPF) Urine WBC 6-10 (0-5/HPF) Ur Epithelial Cells MANY (NONE-FEW) Amorphous Sediment MODERATE (NEGATIVE) Urine Bacteria 2+ H (NEGATIVE) Urine Mucus MODERATE (NONE-MOD) 02/06/19 02/06/19 Range/Units 06:15 06:15 WBC 6.96 (4.0-11.0) K/uL RBC 3.93 L (4.30-5.90) M/uL Hgb 11.8 L (12.0-16.0) g/dL Hct 37.0 (36.0-46.0) % MCV 94.1 (80.0-98.0) fL MCH 30.0 (27.0-32.0) pg MCHC 31.9 (31.0-37.0) g/dL RDW Std Deviation 49.6 (28.0-62.0) fl RDW Coeff of Jason 15 (11.0-15.0) % Plt Count 218 (150-400) K/uL MPV 9.60 (7.40-12.00) fL Neut % (Auto) 65.2 (48.0-80.0) % Lymph % (Auto) 27.7 (16.0-40.0) % [place] % (Auto) 6.2 (0.0-15.0) % Eos % (Auto) 0.6 (0.0-7.0) % Baso % (Auto) 0.3 (0.0-1.5) % Neut # (Auto) 4.5 (1.4-5.7) K/uL Lymph # (Auto) 1.9 (0.6-2.4) K/uL [place] # (Auto) 0.4 (0.0-0.8) K/uL Eos # (Auto) 0.0 (0.0-0.7) K/uL Baso # (Auto) 0.0 (0.0-0.1) K/uL Nucleated RBC % 0.0 /100WBC Nucleated RBCs # 0 K/uL Sodium 144 (136-145) mmol/L Potassium 4.5 (3.5-5.1) mmol/L Chloride 110 H (98-107) mmol/L Carbon Dioxide 27.7 (21.0-32.0) mmol/L BUN 7 (7.0-18.0) mg/dL Creatinine 0.8 (0.6-1.0) mg/dL Est Cr Clr Drug Dosing 60.31 mL/min Estimated GFR (MDRD) > 60.0 ml/min Glucose 112 H (74-106) mg/dL Calcium 8.4 L (8.5-10.1) mg/dL Total Bilirubin 0.4 (0.2-1.0) mg/dL AST 17 (15-37) IU/L ALT 25 (14-63) IU/L Alkaline Phosphatase 75 (46-116) U/L Total Protein 5.5 L (6.4-8.2) g/dL Albumin 2.6 L (3.4-5.0) g/dL Globulin 2.9 (2.6-4.0) g/dL Albumin/Globulin Ratio 0.9 (0.9-1.6) Lipase (73-393) U/L Urine Color Urine Appearance Urine pH (5.0-8.0) Ur Specific [place] (1.001-1.035) Urine Protein (NEGATIVE) mg/dL Urine Glucose (UA) (NEGATIVE) mg/dL Urine Ketones (NEGATIVE) mg/dL Urine Occult Blood (NEGATIVE) Urine Nitrite (NEGATIVE) Urine Bilirubin (NEGATIVE) Urine Urobilinogen (<2.0) EU/dL Ur Leukocyte Esterase (NEGATIVE) Urine RBC (0-2/HPF) Urine WBC (0-5/HPF) Ur Epithelial Cells (NONE-FEW) Amorphous Sediment (NEGATIVE) Urine Bacteria (NEGATIVE) Urine Mucus (NONE-MOD) Med Orders - Current: Current Medications Acetaminophen (Tylenol) 650 mg PO Q6H PRN PRN Reason: Pain/Fever Levofloxacin/Dextrose 750 mg/ (Premix) 150 mls @ 100 mls/hr IV Q24H COUNTS INCLUDE 234 BEDS AT THE [facility] Last Admin: 02/05/19 21:22 Dose: 100 mls/hr Lactated Ringer's (Ringers, Lactated) 1,000 mls @ 125 mls/hr IV ASDIRECTED COUNTS INCLUDE 234 BEDS AT THE [facility] Last Admin: 02/06/19 04:20 Dose: 125 mls/hr Pantoprazole Sodium 40 mg/ (Sodium Chloride) 10 mls @ 300 mls/hr IV Q24H COUNTS INCLUDE 234 BEDS AT THE [facility] Last Admin: 02/05/19 21:18 Dose: 300 mls/hr Ondansetron HCl (Zofran) 4 mg IVPUSH Q8H PRN PRN Reason: Nausea/Vomiting Sodium Chloride (Saline Flush) 10 ml FLUSH ASDIRECTED PRN PRN Reason: Keep Vein Open Sodium Chloride (Saline Flush) 2.5 ml FLUSH ASDIRECTED PRN PRN Reason: Keep Vein Open Discontinued Medications Hydromorphone HCl (Dilaudid) 1 mg IVPUSH ONETIME ONE Stop: 02/05/19 17:58 Last Admin: 02/05/19 18:04 Dose: 1 mg Sodium Chloride (Normal Saline) 1,000 mls @ 999 mls/hr IV STAT ONE Stop: 02/05/19 16:55 Last Admin: 02/05/19 16:07 Dose: 999 mls/hr Cefoxitin Sodium 2 gm/ Premix 50 mls @ 100 mls/hr IV ONETIME ONE Stop: 02/05/19 18:27 Last Admin: 02/05/19 18:06 Dose: 100 mls/hr Metronidazole 500 mg/ Premix 100 mls @ 100 mls/hr IV ONETIME ONE Stop: 02/05/19 18:57 Last Admin: 02/05/19 18:06 Dose: 100 mls/hr Sodium Chloride (Normal Saline) 1,000 mls @ 125 mls/hr IV .Bolus ONE Stop: 02/06/19 01:59 Last Admin: 02/05/19 18:06 Dose: 125 mls/hr Morphine Sulfate (Morphine) 4 mg IVPUSH ONETIME ONE Stop: 02/05/19 15:56 Last Admin: 02/05/19 16:07 Dose: 4 mg Ondansetron HCl (Zofran) 4 mg IVPUSH ONETIME ONE Stop: 02/05/19 18:03 Last Admin: 02/05/19 18:05 Dose: 4 mg Ondansetron HCl (Zofran) 4 mg IVPUSH ONETIME ONE Stop: 02/05/19 19:04 Last Admin: 02/05/19 19:10 Dose: 4 mg Ondansetron HCl (Zofran) Confirm Administered Dose 4 mg .ROUTE .STK-MED ONE Stop: 02/05/19 19:05 Last Admin: 02/05/19 19:45 Dose: Not Given Ondansetron HCl (Zofran) 4 mg IVPUSH ONETIME ONE Stop: 02/05/19 19:01 Last Admin: 02/05/19 19:45 Dose: Not Given - My Orders Last 24 Hours: Active Orders 24 hr Category Date Time Status Admission Status [Patient Status] [ADT] Stat ADT 02/05/19 18:00 Active Notify Provider Consults [RC] ASDIRECTED Care 02/06/19 08:24 Active Consult to Physician [CONS] Routine Cons 02/06/19 08:23 Active NPO Now [Nothing per Oral Now Diet] [DIET] Diet 02/06/19 Lunch Active NPO Now [Nothing per Oral Now Diet] [DIET] Diet 02/06/19 Lunch Active NPO [Nothing Per Oral Diet] [DIET] Diet 02/06/19 Breakfast Active Nothing per Oral After Midnight Diet [DIET] Diet 02/06/19 Lunch Active Abdomen w wo Cont [MR] Routine Exams 02/06/19 08:28 Ordered CULTURE URINE [RM] Stat Lab 02/05/19 16:59 Received Acetaminophen [Tylenol] Med 02/06/19 08:18 Active 650 mg PO Q6H PRN Lactated Ringers [Ringers, Lactated] 1,000 ml Med 02/06/19 02:00 Active IV ASDIRECTED Levofloxacin/Dextrose 5%-Water [Levaquin in D5W 750 MG/ Med 02/05/19 21:00 Active 150 ML] 750 mg Premix Bag 1 bag IV Q24H Ondansetron [Zofran] Med 02/06/19 08:19 Active 4 mg IVPUSH Q8H PRN Pantoprazole [ProTONIX IV] 40 mg Med 02/05/19 21:00 Active Sodium Chloride 0.9% [Normal Saline] 10 ml IV Q24H Sodium Chloride 0.9% [Saline Flush] Med 02/05/19 15:47 Active 10 ml FLUSH ASDIRECTED PRN Sodium Chloride 0.9% [Saline Flush] Med 02/05/19 15:47 Active 2.5 ml FLUSH ASDIRECTED PRN Saline Lock Insert [OM.PC] Stat Oth 02/05/19 15:47 Ordered Medication Orders Acetaminophen (Tylenol) 650 mg PO Q6H PRN PRN Reason: Pain/Fever Levofloxacin/Dextrose 750 mg/ (Premix) 150 mls @ 100 mls/hr IV Q24H COUNTS INCLUDE 234 BEDS AT THE [facility] Last Admin: 02/05/19 21:22 Dose: 100 mls/hr Lactated Ringer's (Ringers, Lactated) 1,000 mls @ 125 mls/hr IV ASDIRECTED [facility] Last Admin: 02/06/19 04:20 Dose: 125 mls/hr Pantoprazole Sodium 40 mg/ (Sodium Chloride) 10 mls @ 300 mls/hr IV Q24H [facility] Last Admin: 02/05/19 21:18 Dose: 300 mls/hr Ondansetron HCl (Zofran) 4 mg IVPUSH Q8H PRN PRN Reason: Nausea/Vomiting Sodium Chloride (Saline Flush) 10 ml FLUSH ASDIRECTED PRN PRN Reason: Keep Vein Open Sodium Chloride (Saline Flush) 2.5 ml FLUSH ASDIRECTED PRN PRN Reason: Keep Vein Open
--- NOTE | 2019-02-06 10:06 | PCM.SURGPN ---
- General Info Date of Service: 02/06/19 Functional Status: Reports: Pain Controlled (pain controlled w tylenol as pt sbp is around 94) - Patient Data Vitals - Most Recent: Last Vital Signs Temp 97.6 F 02/06/19 07:37 Pulse 60 02/06/19 07:37 Resp 16 02/06/19 07:37 BP 99/39 L 02/06/19 07:37 Pulse Ox 96 02/06/19 07:37 Weight - Most Recent: 190 lb 14 oz I&O - Last 24 Hours: Intake & Output 02/05/19 02/06/19 02/06/19 22:59 06:59 14:59 Intake Total 1034 Output Total 250 Balance 784 Lab Results Last 24 Hrs: Laboratory Results - last 24 hr 02/05/19 02/05/19 02/05/19 Range/Units 16:05 16:05 16:59 WBC 7.43 (4.0-11.0) K/uL RBC 4.35 (4.30-5.90) M/uL Hgb 13.5 (12.0-16.0) g/dL Hct 40.6 (36.0-46.0) % MCV 93.3 (80.0-98.0) fL MCH 31.0 (27.0-32.0) pg MCHC 33.3 (31.0-37.0) g/dL RDW Std Deviation 48.4 (28.0-62.0) fl RDW Coeff of Jason 14 (11.0-15.0) % Plt Count 236 (150-400) K/uL MPV 9.90 (7.40-12.00) fL Neut % (Auto) 55.6 (48.0-80.0) % Lymph % (Auto) 34.5 (16.0-40.0) % [place] % (Auto) 7.3 (0.0-15.0) % Eos % (Auto) 2.2 (0.0-7.0) % Baso % (Auto) 0.4 (0.0-1.5) % Neut # (Auto) 4.1 (1.4-5.7) K/uL Lymph # (Auto) 2.6 H (0.6-2.4) K/uL [place] # (Auto) 0.5 (0.0-0.8) K/uL Eos # (Auto) 0.2 (0.0-0.7) K/uL Baso # (Auto) 0.0 (0.0-0.1) K/uL Nucleated RBC % 0.0 /100WBC Nucleated RBCs # 0 K/uL Sodium 144 (136-145) mmol/L Potassium 3.9 (3.5-5.1) mmol/L Chloride 106 (98-107) mmol/L Carbon Dioxide 27.5 (21.0-32.0) mmol/L BUN 8 (7.0-18.0) mg/dL Creatinine 0.8 (0.6-1.0) mg/dL Est Cr Clr Drug Dosing 60.31 mL/min Estimated GFR (MDRD) > 60.0 ml/min Glucose 112 H (74-106) mg/dL Calcium 9.1 (8.5-10.1) mg/dL Total Bilirubin 0.3 (0.2-1.0) mg/dL AST 19 (15-37) IU/L ALT 26 (14-63) IU/L Alkaline Phosphatase 89 (46-116) U/L Total Protein 6.6 (6.4-8.2) g/dL Albumin 3.2 L (3.4-5.0) g/dL Globulin 3.4 (2.6-4.0) g/dL Albumin/Globulin Ratio 0.9 (0.9-1.6) Lipase 122 (73-393) U/L Urine Color YELLOW Urine Appearance SLT CLOUDY Urine pH 5.5 (5.0-8.0) Ur Specific [place] 1.025 (1.001-1.035) Urine Protein NEGATIVE (NEGATIVE) mg/dL Urine Glucose (UA) NEGATIVE (NEGATIVE) mg/dL Urine Ketones NEGATIVE (NEGATIVE) mg/dL Urine Occult Blood NEGATIVE (NEGATIVE) Urine Nitrite NEGATIVE (NEGATIVE) Urine Bilirubin NEGATIVE (NEGATIVE) Urine Urobilinogen 0.2 (<2.0) EU/dL Ur Leukocyte Esterase LARGE H (NEGATIVE) Urine RBC RARE (0-2/HPF) Urine WBC 6-10 (0-5/HPF) Ur Epithelial Cells MANY (NONE-FEW) Amorphous Sediment MODERATE (NEGATIVE) Urine Bacteria 2+ H (NEGATIVE) Urine Mucus MODERATE (NONE-MOD) 02/06/19 02/06/19 Range/Units 06:15 06:15 WBC 6.96 (4.0-11.0) K/uL RBC 3.93 L (4.30-5.90) M/uL Hgb 11.8 L (12.0-16.0) g/dL Hct 37.0 (36.0-46.0) % MCV 94.1 (80.0-98.0) fL MCH 30.0 (27.0-32.0) pg MCHC 31.9 (31.0-37.0) g/dL RDW Std Deviation 49.6 (28.0-62.0) fl RDW Coeff of Jason 15 (11.0-15.0) % Plt Count 218 (150-400) K/uL MPV 9.60 (7.40-12.00) fL Neut % (Auto) 65.2 (48.0-80.0) % Lymph % (Auto) 27.7 (16.0-40.0) % [place] % (Auto) 6.2 (0.0-15.0) % Eos % (Auto) 0.6 (0.0-7.0) % Baso % (Auto) 0.3 (0.0-1.5) % Neut # (Auto) 4.5 (1.4-5.7) K/uL Lymph # (Auto) 1.9 (0.6-2.4) K/uL [place] # (Auto) 0.4 (0.0-0.8) K/uL Eos # (Auto) 0.0 (0.0-0.7) K/uL Baso # (Auto) 0.0 (0.0-0.1) K/uL Nucleated RBC % 0.0 /100WBC Nucleated RBCs # 0 K/uL Sodium 144 (136-145) mmol/L Potassium 4.5 (3.5-5.1) mmol/L Chloride 110 H (98-107) mmol/L Carbon Dioxide 27.7 (21.0-32.0) mmol/L BUN 7 (7.0-18.0) mg/dL Creatinine 0.8 (0.6-1.0) mg/dL Est Cr Clr Drug Dosing 60.31 mL/min Estimated GFR (MDRD) > 60.0 ml/min Glucose 112 H (74-106) mg/dL Calcium 8.4 L (8.5-10.1) mg/dL Total Bilirubin 0.4 (0.2-1.0) mg/dL AST 17 (15-37) IU/L ALT 25 (14-63) IU/L Alkaline Phosphatase 75 (46-116) U/L Total Protein 5.5 L (6.4-8.2) g/dL Albumin 2.6 L (3.4-5.0) g/dL Globulin 2.9 (2.6-4.0) g/dL Albumin/Globulin Ratio 0.9 (0.9-1.6) Lipase (73-393) U/L Urine Color Urine Appearance Urine pH (5.0-8.0) Ur Specific [place] (1.001-1.035) Urine Protein (NEGATIVE) mg/dL Urine Glucose (UA) (NEGATIVE) mg/dL Urine Ketones (NEGATIVE) mg/dL Urine Occult Blood (NEGATIVE) Urine Nitrite (NEGATIVE) Urine Bilirubin (NEGATIVE) Urine Urobilinogen (<2.0) EU/dL Ur Leukocyte Esterase (NEGATIVE) Urine RBC (0-2/HPF) Urine WBC (0-5/HPF) Ur Epithelial Cells (NONE-FEW) Amorphous Sediment (NEGATIVE) Urine Bacteria (NEGATIVE) Urine Mucus (NONE-MOD) Med Orders - Current: Current Medications Acetaminophen (Tylenol) 650 mg PO Q6H PRN PRN Reason: Pain/Fever Last Admin: 02/06/19 09:49 Dose: 650 mg Levofloxacin/Dextrose 750 mg/ (Premix) 150 mls @ 100 mls/hr IV Q24H [facility] Last Admin: 02/05/19 21:22 Dose: 100 mls/hr Lactated Ringer's (Ringers, Lactated) 1,000 mls @ 125 mls/hr IV ASDIRECTED [facility] Last Admin: 02/06/19 04:20 Dose: 125 mls/hr Pantoprazole Sodium 40 mg/ (Sodium Chloride) 10 mls @ 300 mls/hr IV Q24H [facility] Last Admin: 02/05/19 21:18 Dose: 300 mls/hr Ondansetron HCl (Zofran) 4 mg IVPUSH Q8H PRN PRN Reason: Nausea/Vomiting Sodium Chloride (Saline Flush) 10 ml FLUSH ASDIRECTED PRN PRN Reason: Keep Vein Open Sodium Chloride (Saline Flush) 2.5 ml FLUSH ASDIRECTED PRN PRN Reason: Keep Vein Open Discontinued Medications Hydromorphone HCl (Dilaudid) 1 mg IVPUSH ONETIME ONE Stop: 02/05/19 17:58 Last Admin: 02/05/19 18:04 Dose: 1 mg Sodium Chloride (Normal Saline) 1,000 mls @ 999 mls/hr IV STAT ONE Stop: 02/05/19 16:55 Last Admin: 02/05/19 16:07 Dose: 999 mls/hr Cefoxitin Sodium 2 gm/ Premix 50 mls @ 100 mls/hr IV ONETIME ONE Stop: 02/05/19 18:27 Last Admin: 02/05/19 18:06 Dose: 100 mls/hr Metronidazole 500 mg/ Premix 100 mls @ 100 mls/hr IV ONETIME ONE Stop: 02/05/19 18:57 Last Admin: 02/05/19 18:06 Dose: 100 mls/hr Sodium Chloride (Normal Saline) 1,000 mls @ 125 mls/hr IV .Bolus ONE Stop: 02/06/19 01:59 Last Admin: 02/05/19 18:06 Dose: 125 mls/hr Morphine Sulfate (Morphine) 4 mg IVPUSH ONETIME ONE Stop: 02/05/19 15:56 Last Admin: 02/05/19 16:07 Dose: 4 mg Ondansetron HCl (Zofran) 4 mg IVPUSH ONETIME ONE Stop: 02/05/19 18:03 Last Admin: 02/05/19 18:05 Dose: 4 mg Ondansetron HCl (Zofran) 4 mg IVPUSH ONETIME ONE Stop: 02/05/19 19:04 Last Admin: 02/05/19 19:10 Dose: 4 mg Ondansetron HCl (Zofran) Confirm Administered Dose 4 mg .ROUTE .STK-MED ONE Stop: 02/05/19 19:05 Last Admin: 02/05/19 19:45 Dose: Not Given Ondansetron HCl (Zofran) 4 mg IVPUSH ONETIME ONE Stop: 02/05/19 19:01 Last Admin: 02/05/19 19:45 Dose: Not Given - Exam GI/Abdominal Exam: Normal Bowel Sounds, Soft (ruq much much improved) - Problem List Review Problem List Initiated/Reviewed/Updated: Yes - My Orders Last 24 Hours: Active Orders 24 hr Category Date Time Status Admission Status [Patient Status] [ADT] Stat ADT 02/05/19 18:00 Active Notify Provider Consults [RC] ASDIRECTED Care 02/06/19 08:24 Active Consult to Physician [CONS] Routine Cons 02/06/19 08:23 Active NPO Now [Nothing per Oral Now Diet] [DIET] Diet 02/06/19 Lunch Active NPO Now [Nothing per Oral Now Diet] [DIET] Diet 02/06/19 Lunch Active NPO [Nothing Per Oral Diet] [DIET] Diet 02/06/19 Breakfast Active Nothing per Oral After Midnight Diet [DIET] Diet 02/06/19 Lunch Active Abdomen w wo Cont [MR] Routine Exams 02/06/19 08:28 Ordered CULTURE URINE [RM] Stat Lab 02/05/19 16:59 Received Acetaminophen [Tylenol] Med 02/06/19 08:18 Active 650 mg PO Q6H PRN Lactated Ringers [Ringers, Lactated] 1,000 ml Med 02/06/19 02:00 Active IV ASDIRECTED Levofloxacin/Dextrose 5%-Water [Levaquin in D5W 750 MG/ Med 02/05/19 21:00 Active 150 ML] 750 mg Premix Bag 1 bag IV Q24H Ondansetron [Zofran] Med 02/06/19 08:19 Active 4 mg IVPUSH Q8H PRN Pantoprazole [ProTONIX IV] 40 mg Med 02/05/19 21:00 Active Sodium Chloride 0.9% [Normal Saline] 10 ml IV Q24H Sodium Chloride 0.9% [Saline Flush] Med 02/05/19 15:47 Active 10 ml FLUSH ASDIRECTED PRN Sodium Chloride 0.9% [Saline Flush] Med 02/05/19 15:47 Active 2.5 ml FLUSH ASDIRECTED PRN Saline Lock Insert [OM.PC] Stat Oth 02/05/19 15:47 Ordered Medication Orders Acetaminophen (Tylenol) 650 mg PO Q6H PRN PRN Reason: Pain/Fever Last Admin: 02/06/19 09:49 Dose: 650 mg Levofloxacin/Dextrose 750 mg/ (Premix) 150 mls @ 100 mls/hr IV Q24H [facility] Last Admin: 02/05/19 21:22 Dose: 100 mls/hr Lactated Ringer's (Ringers, Lactated) 1,000 mls @ 125 mls/hr IV ASDIRECTED [facility] Last Admin: 02/06/19 04:20 Dose: 125 mls/hr Pantoprazole Sodium 40 mg/ (Sodium Chloride) 10 mls @ 300 mls/hr IV Q24H [facility] Last Admin: 02/05/19 21:18 Dose: 300 mls/hr Ondansetron HCl (Zofran) 4 mg IVPUSH Q8H PRN PRN Reason: Nausea/Vomiting Sodium Chloride (Saline Flush) 10 ml FLUSH ASDIRECTED PRN PRN Reason: Keep Vein Open Sodium Chloride (Saline Flush) 2.5 ml FLUSH ASDIRECTED PRN PRN Reason: Keep Vein Open - Assessment Assessment (Free Text/Narrative):: resolving abd pain from symptomatic choleclithiasis; hosp cxed for hypotension; probably home on abx if pain continue to improve - Plan Plan (Free Text/Narrative):: resolving abd pain from symptomatic choleclithiasis; hosp cxed for hypotension; probably home on abx if pain continue to improve
[2019-02-06] MEDS ORDERED: Gadobenate Dimeglumine 529 MG/ML 20 ML SDV IVPUSH STA (11:09)
--- NOTE | 2019-02-06 11:24 | CONS ---
DATE OF CONSULTATION: 02/05/2019 DATE OF : 1955 PRIMARY CARE PHYSICIAN: Unknown PCP REASON FOR CONSULTATION: This is a consult from the ER provider. Concerning question is abdominal pain. HISTORY OF PRESENT ILLNESS: The patient is a 63-year-ago obese lady, BMI of 34, weight 200 pounds, who complained of a 3- to 4-day history of a gradual onset of epigastric pain radiating to the back, to the right shoulder, and also black tarry stool at one point, the patient remarked, which has resolved today. Denied dark urine. Denied white stool and denied jaundice. PAST MEDICAL HISTORY: Significant for a history of acute coronary syndrome two years ago and details not available at the time of dictation. Denied diabetes, CVA, hypertension. The patient remarked that she used to be hypotensive. PAST SURGICAL HISTORY: Had hysterectomy and appendectomy, laparoscopic. REVIEW OF SYSTEMS: Same as history of present illness. FAMILY HISTORY: Noncontributory. PHYSICAL EXAMINATION: GENERAL: A very pleasant lady, resting in bed with a lot of family members in room, in no acute distress. HEENT: Normocephalic and atraumatic. Sclerae anicteric. LUNGS: Clear to auscultation. HEART: Regular rate and rhythm. ABDOMEN: Soft, nondistended. There is no pulsating, tender, midline abdominal structure. Tenderness is at right upper quadrant and no rebound. Well-healed surgical scar at the umbilicus. LABORATORY DATA: Upon consultation, white count is 7. Liver function tests are completely normal. Ultrasound shows debris, possibility of stones. Common bile duct is dilated to 10 mm. There is no pericholecystic fluid. Gallbladder wall is likely prominent at 3 mm. IMPRESSION: Possible symptomatic cholelithiasis. Admit for IV antibiotic for urinary tract infection and also for pain management, and after cool down of the gallbladder, we will likely have surgery in a week or two. The patient will need a magnetic resonance cholangiopancreatography and possible Cardiology consult for her history of acute coronary syndrome. As always, thank you for your referral. ANGELA / ELANA /[id number]
[2019-02-06 11:33] VITALS: BP 95/31
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
--- NOTE | 2019-02-06 16:22 | PCM.SN ---
- Free Text/Narrative Note: pt number all normal, no wbc, lft wnl; attempted MRCP, pt is not tolerated. pt [place] po fine, home on pain script; fu 1 - 2 wk to schedule gall bladder sugery after card clearance
== END 2019-02-06 17:20 | disposition home or self-care (01) ==
LOC: MW.ED 15:32 → MW.MS 18:00
PROVIDERS: ADMIT Surgery; ATTEND Surgery
DX: K80.20 Calculus of gallbladder without cholecystitis without obstruction (principal); N39.0 Urinary tract infection, site not specified; E11.9 Type 2 diabetes mellitus without complications; I95.9 Hypotension, unspecified; Z68.34 Body mass index [BMI] 34.0-34.9, adult; E66.9 Obesity, unspecified; Z86.79 Personal history of other diseases of the circulatory system; Z90.49 Acquired absence of other specified parts of digestive tract; Z91.048 Other nonmedicinal substance allergy status; Z88.5 Allergy status to narcotic agent
CPT/HCPCS: 36415; 76705; 80053; 81001; 83690; 85025; 87086; 93005; 96361; 96365; 96367; 96368; 96375; 96376; 99285; A9270; A9577; C9113; G0378; J0694; J1170; J1956; J2270; J2405; J3490; J7040; J7050; J7120

== ENCOUNTER 2019-03-14 06:34 | Day surgery (SDC) | payer OTHER ==
[~2019-03-14 06:34] MED LIST: Lactated Ringers 1,000 ML IV SCH; ceFAZolin 2 GM in Premix Bag 1 BAG IV ONE
[2019-03-14] MEDS ORDERED: Propofol 200 MG/20 ML SDV ONE (06:54)
[2019-03-14] MEDS ORDERED: fentaNYL 100 MCG/2 ML SDV ONE ×2 (06:54→09:02)
[2019-03-14] MEDS ORDERED: Rocuronium 100 MG/10 ML Syringe ONE (06:54)
[2019-03-14] MEDS ORDERED: Ondansetron 4 MG/2 ML SDV ONE (06:54)
[2019-03-14] MEDS ORDERED: Lidocaine 2% 5 ML SDV ONE (06:55)
[2019-03-14] MEDS ORDERED: Bupivacaine 25%/EPINEPHrine/PF 30 ML ONE (07:28)
[2019-03-14] MEDS ORDERED: Iopamidol 408 MG/ML 50 ML SDV ONE (07:28)
[2019-03-14] MEDS ORDERED: Octyl 2-Cyanoacrylate 1 Tube ONE (07:31)
[2019-03-14] MEDS ORDERED: Ondansetron 4 MG/2 ML SDV IVPUSH PRN (07:31)
[2019-03-14 07:32] LABS: BLOOD UREA NITROGEN,BUN 14 mg/dL (7.0-18.0); CARBON DIOXIDE,CO2 26.3 mmol/L (21.0-32.0); CHLORIDE,CL 108 mmol/L (98-107); GLUCOSE RANDOM 115 mg/dL (74-106); LIPASE 172 U/L (73-393); POTASSIUM,K 4.2 mmol/L (3.5-5.1); SODIUM,NA 141 mmol/L (136-145)
[2019-03-14] MEDS ORDERED: HYDROmorphone 2 MG/ML Syringe IVPUSH PRN (07:32)
[2019-03-14] MEDS ORDERED: Scopolamine 1.5 MG Transdermal Patch TRDERM PRN (07:50)
--- NOTE | 2019-03-14 07:50 | PCM.PREANE ---
Preanesthetic Assessment - Anesthesia/Transfusion/Family Hx Anesthesia History: Prior Anesthesia Reaction Other Type of Anesthesia Reaction Comment: "woke up" during surgery (orthopedic , ? neuraxial anesthesia with sedation) Transfusion History: Prior Transfusion Without Reaction - Review of Systems General: No Symptoms Pulmonary: No Symptoms Cardiovascular: No Symptoms Gastrointestinal: No Symptoms Neurological: No Symptoms Other: Reports: None - Physical Assessment Vital Signs: Last Vital Signs Temp 98.6 F 03/14/19 07:13 Pulse 73 03/14/19 07:13 Resp 16 03/14/19 07:13 BP 129/57 L 03/14/19 07:13 Pulse Ox 96 03/14/19 07:13 Height: 5 ft 3 in Weight: 87.09 kg ASA Class: 1 Mental Status: Alert & Oriented x3 Airway Class: Mallampati = 2 Dentition: Reports: Normal Dentition ROM/Head Extension: Full Lungs: Clear to Auscultation, Normal Respiratory Effort Cardiovascular: Regular Rate, Regular Rhythm - Lab Values: Laboratory Last Values WBC 6.49 K/uL (4.0-11.0) 03/14/19 07:07 RBC 4.30 M/uL (4.30-5.90) 03/14/19 07:07 Hgb 13.0 g/dL (12.0-16.0) 03/14/19 07:07 Hct 40.1 % (36.0-46.0) 03/14/19 07:07 MCV 93.3 fL (80.0-98.0) 03/14/19 07:07 MCH 30.2 pg (27.0-32.0) 03/14/19 07:07 MCHC 32.4 g/dL (31.0-37.0) 03/14/19 07:07 RDW Std Deviation 48.2 fl (28.0-62.0) 03/14/19 07:07 RDW Coeff of Jason 14 % (11.0-15.0) 03/14/19 07:07 Plt Count 223 K/uL (150-400) 03/14/19 07:07 MPV 9.60 fL (7.40-12.00) 03/14/19 07:07 Neut % (Auto) 60.3 % (48.0-80.0) 03/14/19 07:07 Lymph % (Auto) 30.4 % (16.0-40.0) 03/14/19 07:07 [place] % (Auto) 5.7 % (0.0-15.0) 03/14/19 07:07 Eos % (Auto) 2.8 % (0.0-7.0) 03/14/19 07:07 Baso % (Auto) 0.8 % (0.0-1.5) 03/14/19 07:07 Neut # (Auto) 3.9 K/uL (1.4-5.7) 03/14/19 07:07 Lymph # (Auto) 2.0 K/uL (0.6-2.4) 03/14/19 07:07 [place] # (Auto) 0.4 K/uL (0.0-0.8) 03/14/19 07:07 Eos # (Auto) 0.2 K/uL (0.0-0.7) 03/14/19 07:07 Baso # (Auto) 0.1 K/uL (0.0-0.1) 03/14/19 07:07 Nucleated RBC % 0.0 /100WBC 03/14/19 07:07 Nucleated RBCs # 0 K/uL 03/14/19 07:07 Sodium 141 mmol/L (136-145) 03/14/19 07:07 Potassium 4.2 mmol/L (3.5-5.1) 03/14/19 07:07 Chloride 108 mmol/L (98-107) H 03/14/19 07:07 Carbon Dioxide 26.3 mmol/L (21.0-32.0) 03/14/19 07:07 BUN 14 mg/dL (7.0-18.0) 03/14/19 07:07 Creatinine 0.9 mg/dL (0.6-1.0) 03/14/19 07:07 Est Cr Clr Drug Dosing 53.61 mL/min 03/14/19 07:07 Estimated GFR (MDRD) > 60.0 ml/min 03/14/19 07:07 Glucose 115 mg/dL (74-106) H 03/14/19 07:07 Calcium 8.4 mg/dL (8.5-10.1) L 03/14/19 07:07 Total Bilirubin 0.3 mg/dL (0.2-1.0) 03/14/19 07:07 AST 16 IU/L (15-37) 03/14/19 07:07 ALT 25 IU/L (14-63) 03/14/19 07:07 Alkaline Phosphatase 83 U/L (46-116) 03/14/19 07:07 Total Protein 6.7 g/dL (6.4-8.2) 03/14/19 07:07 Albumin 3.2 g/dL (3.4-5.0) L 03/14/19 07:07 Globulin 3.5 g/dL (2.6-4.0) 03/14/19 07:07 Albumin/Globulin Ratio 0.9 (0.9-1.6) 03/14/19 07:07 Amylase 48 U/L (25-115) 03/14/19 07:07 Lipase 172 U/L (73-393) 03/14/19 07:07 - Allergies Allergies/Adverse Reactions: Allergies Allergy/AdvReac Type Severity Reaction Status Date / Time adhesive tape Allergy Blisters Verified 03/09/19 13:44 codeine Allergy Abdominal Verified 03/09/19 13:44 Pain - Blood Blood Available: No - Anesthesia Plan Pre-Op Medication Ordered: Other (scop patch) - Acknowledgements Anesthesia Type Planned: General Anesthesia Pt an Appropriate Candidate for the Planned Anesthesia: Yes Alternatives and Risks of Anesthesia Discussed w Pt/Guardian: Yes Pt/Guardian Understands and Agrees with Anesthesia Plan: Yes Additional Comments: PMH: none, was seen in clinic about 2 years ago with c/o chest pain, normal ekg , normal stress test, not kept obernight, not sent for heart cath. 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: Reports: Musculoskeletal History: Reports: Arthritis, Fracture Other Musculoskeletal History: hx of fx left leg and pelvis Neurological History: Reports: Other (See Below) Other Neuro History: Claustrophobic Endocrine/Metabolic History: Reports: Obesity/BMI 30+ Hematologic History: Reports: Blood Transfusion(s) Oncologic (Cancer) History: Reports: None - Infectious Disease History Infectious Disease History: Reports: Measles, Mumps - Past Surgical History Head Surgeries/Procedures: Reports: None HEENT Surgical History: Reports: Tonsillectomy GI Surgical History: Reports: Appendectomy Female Surgical History: Reports: Hysterectomy, Lithotripsy/ESWL, Tubal Ligation Endocrine Surgical History: 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 Musculoskeletal Surgical History: Reports: Knee Replacement, ORIF Other Musculoskeletal Surgeries/Procedures:: hardware in left knee and leg - SUBSTANCE USE Smoking Status *Q: Never Smoker Recreational Drug Use History: No - HOME MEDS Home Medications: Home Meds Multivitamin [Multi-Vitamin Daily] 1 tab PO DAILY 02/05/19 [History] - CURRENT (IN HOUSE) MEDS Current Meds: Current Medications Fentanyl (Sublimaze) 50 mcg IVPUSH Q5M PRN PRN Reason: Pain (severe 7-10) Stop: 03/15/19 07:32 Hydromorphone HCl (Dilaudid) 0.25 mg IVPUSH .Q5MIN PRN PRN Reason: Pain (severe 7-10) Stop: 03/15/19 07:32 Lactated Ringer's (Ringers, Lactated) 1,000 mls @ 125 mls/hr IV ASDIRECTED GLEN Last Admin: 03/14/19 07:13 Dose: 125 mls/hr Ondansetron HCl (Zofran) 4 mg IVPUSH ONETIME PRN PRN Reason: Nausea/Vomiting Discontinued Medications Fentanyl (Sublimaze) Confirm Administered Dose 100 mcg .ROUTE .STK-MED ONE Stop: 03/14/19 06:55 Cefazolin Sodium/Dextrose 2 gm (/ Premix) 50 mls @ 100 mls/hr IV ONETIME ONE Stop: 03/14/19 05:29 Bupivacaine HCl/Epinephrine Bitart (Sensorc Mpf 0.25%-Epi [id number]) Confirm Administered Dose 30 mls @ as directed .ROUTE .STK-MED ONE Stop: 03/14/19 07:29 Iopamidol (Isovue-200 (41%)) Confirm Administered Dose 50 ml .ROUTE .STK-MED ONE Stop: 03/14/19 07:29 Lidocaine (Xylocaine-Mpf 2%) Confirm Administered Dose 5 ml .ROUTE .STK-MED ONE Stop: 03/14/19 06:56 Octyl Cyanoacrylate (Dermabond Advance) Confirm Administered Dose 1 applic .[address] .[facility] ONE Stop: 03/14/19 07:32 Ondansetron HCl (Zofran) Confirm Administered Dose 4 mg .ROUTE .[facility]-MED ONE Stop: 03/14/19 06:55 Propofol (Diprivan 20 Ml) Confirm Administered [facility] Stop: 03/14/19 06:55 Rocuronium [place] (Zemuron) Confirm Administered Dose 100 mg .ROUTE .[facility]-MED ONE Stop: 03/14/19 06:55 Succinylcholine Chloride (Succinylcholine Chloride) Confirm Administered Dose 200 [facility] Stop: 03/14/19 06:55
[2019-03-14] MEDS ORDERED: ceFAZolin/Dextrose,Iso-Osmotic 2 GM/50 ML Duplex Bag IV ONE (08:18)
--- NOTE | 2019-03-14 08:19 | PCM.SN ---
- Free Text/Narrative Note: Pt denied n/v/f/c, dark urine/white stool/jaundice/pain, and LFT completely normal this morning, scheduled IOC cancel. proceed w surgery, risks of CBD stones, told, pt voiced understanding that ERCP may need in the future;
[2019-03-14] MEDS ORDERED: Phenylephrine/Normal Saline 100 MCG/ML 10 ML Syringe ONE (08:42)
[2019-03-14] MEDS ORDERED: ePHEDrine 50 MG/ML SDV ONE (09:01)
[2019-03-14] MEDS ORDERED: fentaNYL 250 MCG/5 ML SDV ONE (09:13)
[2019-03-14] MEDS ORDERED: Glycopyrrolate 0.2 MG/ML SDV ONE (09:16)
--- NOTE | 2019-03-14 09:42 | PCM.OPNOTE ---
- General Post-Op/Procedure Note Date of Surgery/Procedure: 03/14/19 Operative Procedure(s): lap ayla Findings: gb distended require aspiration; wall not thickened, numerous large and small stones; and one stucked on duct. see dict [id number] Pre Op Diagnosis: acute and chronic cholecystitis Post-Op Diagnosis: Same Anesthesia Technique: General ET Tube Primary Surgeon: Flaco Washington Pathology: sent Complications: None Condition: Good
[2019-03-14] MEDS: fentaNYL 100 MCG/2 ML SDV IVPUSH PRN ×2 (09:44→09:49)
[2019-03-14] MEDS ORDERED: Ketorolac 30 MG/ML SDV IVPUSH ONE (09:58)
--- NOTE | 2019-03-14 09:59 | PCM.POSTAN ---
POST ANESTHESIA ASSESSMENT - MENTAL STATUS Mental Status: Alert, Oriented - VITAL SIGNS Vital Signs: Last Vital Signs Temp 98.6 F 03/14/19 07:13 Pulse 73 03/14/19 07:13 Resp 16 03/14/19 07:13 BP 129/57 L 03/14/19 07:13 Pulse Ox 96 03/14/19 07:13 - RESPIRATORY Respiratory Status: Respiratory Rate WNL, Airway Patent, O2 Saturation Stable - CARDIOVASCULAR CV Status: Pulse Rate WNL, Blood Pressure Stable - GASTROINTESTINAL GI Status: No Symptoms - POST OP HYDRATION Hydration Status: Adequate & Stable
--- NOTE | 2019-03-14 11:40 | OR ---
SURGEON: Flaco Washington MD DATE OF PROCEDURE: 03/14/2019 PREOPERATIVE DIAGNOSIS: Chronic and acute cholecystitis. POSTOPERATIVE DIAGNOSIS: Chronic and acute cholecystitis. PROCEDURE PROPOSED: Laparoscopic cholecystectomy. PROCEDURE PERFORMED: Laparoscopic cholecystectomy. PRIMARY SURGEON: Flaco Washington MD. COMPLICATIONS: None. FINDINGS: Gallbladder was very very distended and almost white bile. Wall is not thickened. Gallbladder had to be aspirated prior to surgery. PROCEDURE NOTE: The patient was taken to the operating room and placed in the supine position. After the intubation of general endotracheal anesthesia, the patient's abdomen was prepped and draped in the usual sterile fashion. Using David technique, a 12 mm trocar was placed supraumbilically and then followed with pneumoperitoneum. A 5 mm trocar was placed in the epigastrium and two 5 mm trocars placed in the right upper quadrant. The placement of the last three trocars was done under direct video supervision. Upon gaining entrance to the abdominal cavity, an extensive examination was then performed. The gallbladder was located and identified and retracted to the dome of the liver at the triangle of [place]ot. The cystic duct was clipped three more times and then using the endoscopic clip, was transected with placement of the endoscopic clip and transection was performed with care, ensuring the posterior prong of the instruments were clearly visualized prior to exercising the procedure. The gallbladder was dissected using electrocautery out of the liver bed and then removed using endoscopic bag through the umbilical site. The gallbladder was removed en bloc and there was no bile spillage and this was then followed with extensive irrigation until the bile was clear from blood and bile. The trocars were then removed under direct video supervision. The 12 mm umbilical site was then closed with deep stitches using 0 Vicryl followed with proximal stitches using 3-0 Vicryl and Dermabond. The other three trocar sites were closed with 3-0 Vicryl followed with approximation of skin with Dermabond. The patient was then awakened and extubated and transferred to the recovery room in hemodynamically stable condition. At the conclusion of the surgery, before closing the abdominal wound, instrument count and sponge count were done and were correct. The patient tolerated the procedure well and there were no intraoperative complications. Dr. Washington was present through the whole procedure. Just before surgery, a timeout was called. The patient was identified and procedure identified and procedure started. Intraoperative findings as dictated above. LIANS / ELANA /[id number] GOLDEN
[2019-03-14] MEDS ORDERED: oxyCODONE 5 MG Tab PO ONE (11:47)
--- NOTE | 2019-03-14 12:29 | PCM48HPAN ---
Post Anesthesia Note - EVALUATION WITHIN 48HRS OF ANESTHETIC Vital Signs in Normal Range: Yes Patient Participated in Evaluation: Yes Respiratory Function Stable: Yes Airway Patent: Yes Cardiovascular Function Stable: Yes Hydration Status Stable: Yes Pain Control Satisfactory: Yes Nausea and Vomiting Control Satisfactory: Yes Mental Status Recovered: Yes Vital Signs: Last Vital Signs Temp 36.3 C 03/14/19 10:15 Pulse 88 03/14/19 11:30 Resp 16 03/14/19 11:30 BP 119/60 03/14/19 11:30 Pulse Ox 97 03/14/19 11:30 - COMMENTS/OBSERVATIONS Free Text/Narrative:: There were no apparent anesthetic complications at this time. Discharge home per criteria.
[2019-03-14 13:36] VITALS: BP 102/56; PULSE 78
== END 2019-03-14 13:20 | disposition home or self-care (01) ==
LOC: MW.SDS 06:34
PROVIDERS: ATTEND Surgery
DX: K80.10 Calculus of gallbladder with chronic cholecystitis without obstruction (principal); M19.90 Unspecified osteoarthritis, unspecified site; E66.9 Obesity, unspecified; Z68.34 Body mass index [BMI] 34.0-34.9, adult; Z88.5 Allergy status to narcotic agent; Z91.048 Other nonmedicinal substance allergy status
CPT/HCPCS: 36415; 47562; 80053; 82150; 83690; 85025; A9270; J0131; J0330; J0690; J1885; J2001; J2370; J2405; J2704; J3010; J3490; J7120; Q9966

== ENCOUNTER 2019-03-28 13:09 | Emergency (ER) | payer OTHER ==
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
[2019-03-28] MEDS ORDERED: Sodium Chloride 0.9% 10 ML Syringe FLUSH PRN (13:21)
[2019-03-28] MEDS ORDERED: Ketorolac 30 MG/ML SDV IVPUSH ONE (13:21)
[2019-03-28] MEDS ORDERED: Sodium Chloride 0.9% 1,000 ML IV ONE (13:21)
[2019-03-28] MEDS ORDERED: Sodium Chloride 0.9% 2.5 ML Syringe FLUSH PRN (13:21)
[2019-03-28 13:59] LABS: CARBON DIOXIDE,CO2 30.2 mmol/L (21.0-32.0); POTASSIUM,K 4.1 mmol/L (3.5-5.1)
[2019-03-28 16:05] VITALS: BP 102/34; PULSE 83
== END 2019-03-28 14:35 | disposition home or self-care (01) ==
LOC: MW.ED 13:09
DX: R10.33 Periumbilical pain (principal); E66.9 Obesity, unspecified; Z68.31 Body mass index [BMI] 31.0-31.9, adult; Z90.49 Acquired absence of other specified parts of digestive tract; Z90.89 Acquired absence of other organs; Z98.51 Tubal ligation status; Z90.710 Acquired absence of both cervix and uterus; Z88.5 Allergy status to narcotic agent; Z91.048 Other nonmedicinal substance allergy status; W50.1XXA Accidental kick by another person, initial encounter; Y92.89 Other specified places as the place of occurrence of the external cause; Y99.0 Civilian activity done for income or pay
CPT/HCPCS: 36415; 80053; 85025; 96361; 96374; 99284; J1885; J7040; 99283

== ENCOUNTER 2019-08-11 17:06 | Emergency (ER) | payer OTHER ==
[2019-08-11 18:31] VITALS: BP 112/53; PULSE 76
--- NOTE | 2019-08-11 18:53 | EDM.PDOC ---
ED HPI GENERAL MEDICAL PROBLEM - General Chief Complaint: Lower Extremity Injury/Pain Stated Complaint: PROSTHETIC OUT OF PLACE Time Seen by Provider: 08/11/19 18:50 Source of Information: Reports: Patient History Limitations: Reports: No Limitations - History of Present Illness INITIAL COMMENTS - FREE TEXT/NARRATIVE: HISTORY AND PHYSICAL: History of present illness: Patient is a 63-year-old female presents to the ED With complaint of left knee pain. She states she has history of knee replacement in 2002. She states today she was walking and twisted her ankle and felt a tweak in it. She states since then she has gotten progressively worse pain and she can not bear weight on it. She states the knee has dislocated in the past and states it feels similar to this. She denies calf pain or proximal hip pain. She denies direct injury or trauma. She has not taken any tylenol or motrin for the pain. Review of systems: As per history of present illness and below otherwise all systems reviewed and negative. Past medical history: As per history of present illness and as reviewed below otherwise noncontributory. Surgical history: As per history of present illness and as reviewed below otherwise noncontributory. Social history: No reported history of drug or alcohol abuse. Family history: As per history of present illness and as reviewed below otherwise noncontributory. Physical exam: General: Patient sitting comfortably in no acute distress and nontoxic appearing HEENT: Atraumatic, normocephalic, pupils reactive, negative for conjunctival pallor or scleral icterus, mucous membranes moist, throat clear, neck supple, nontender, trachea midline. No meningeal signs. Lungs: Clear to auscultation, breath sounds equal bilaterally, chest nontender. Heart: S1S2, regular, negative for clicks, rubs, or overt murmur. Abdomen: Soft, nondistended, nontender. Negative for masses or hepatosplenomegaly. Negative for costovertebral tenderness. No rigidity, rebound , guarding. Pelvis: Stable nontender. Genitourinary: Deferred. Rectal: Deferred. Extremities: Moderate swelling to the left knee. Pain to palpation of anterior lateral left knee. atraumatic, negative for cords or calf pain. Neurovascular unremarkable. Neuro: Awake, alert, oriented. Cranial nerves II through XII unremarkable. Cerebellum unremarkable. Motor and sensory unremarkable throughout. Exam nonfocal. Notes: Diagnostics: x-ray left knee Therapeutics: none - patient has brace and crutches Prescriptions: none Impression: Left knee pain Plan: 1. Ice, elevate, and motrin or tylenol as needed 2. Follow up with orthopedics, please call the number provided to schedule an appointment 3. Return to ED as needed as discussed Definitive disposition and diagnosis as appropriate pending reevaluation and review of above. left leg Pain Score (Numeric/FACES): 5 - Related Data Allergies Allergy/AdvReac Type Severity Reaction Status Date / Time adhesive tape Allergy Blisters Verified 08/11/19 18:29 codeine Allergy Abdominal Verified 08/11/19 18:29 Pain Home Meds: Home Meds . 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: Musculoskeletal History: Reports: Arthritis, Fracture Other Musculoskeletal History: hx of fx left leg and pelvis Neurological History: Reports: Other (See Below) Other Neuro History: Claustrophobic Psychiatric History: Reports: None Endocrine/Metabolic History: Reports: Obesity/BMI 30+ Hematologic History: Reports: Blood Transfusion(s) Immunologic History: Reports: None Oncologic (Cancer) History: Reports: None Dermatologic History: Reports: None - Infectious Disease History Infectious Disease History: Reports: None - Past Surgical History Head Surgeries/Procedures: Reports: None HEENT Surgical History: Reports: Tonsillectomy Cardiovascular Surgical History: Reports: None Respiratory Surgical History: Reports: None GI Surgical History: Reports: Appendectomy, Cholecystectomy Female Surgical History: Reports: Hysterectomy, Lithotripsy/ESWL, Tubal Ligation Endocrine Surgical History: 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 Neurological Surgical History: Reports: None Musculoskeletal Surgical History: Reports: Knee Replacement, ORIF Other Musculoskeletal Surgeries/Procedures:: hardware in left knee and leg Oncologic Surgical History: Reports: None Dermatological Surgical History: Reports: None Social & Family History - Family History Family Medical History: Noncontributory Cardiac: Reports: OR, Other (See Below) Other Cardiac Family History: heart disease Respiratory: Reports: None Psychiatric: Reports: Eating Disorders Endocrine/Metabolic: Reports: Diabetes, type II Oncologic: Reports: Colon - Tobacco Use Smoking Status *Q: Never Smoker Second Hand Smoke Exposure: No - Caffeine Use Caffeine Use: Reports: Coffee Caffeine Use Comment: 2 cups daily - Recreational Drug Use Recreational Drug Use: No - Living Situation & Occupation Living situation: Reports: 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 ED EXAM, GENERAL - Physical Exam Exam: See Below (see dictation) Course - Vital Signs Last Recorded V/S: Last Vital Signs Temp 97.2 F 08/11/19 18:29 Pulse 76 08/11/19 18:29 Resp 18 08/11/19 18:29 BP 112/53 L 08/11/19 18:29 Pulse Ox 96 08/11/19 18:29 Departure - Departure Time of Disposition: 19:32 Disposition: Home, Self-Care 01 Condition: Good Clinical Impression: Left knee pain - Discharge Information Referrals: PCP,None [Primary Care Provider] - Forms: ED Department Discharge Additional Instructions: The following information is given to patients seen in the emergency department who are being discharged to home. This information is to outline your options for follow-up care. We provide all patients seen in our emergency department with a follow-up referral. The need for follow-up, as well as the timing and circumstances, are variable depending upon the specifics of your emergency department visit. If you don't have a primary care physician on staff, we will provide you with a referral. We always advise you to contact your personal physician following an emergency department visit to inform them of the circumstance of the visit and for follow-up with them and/or the need for any referrals to a consulting specialist. The emergency department will also refer you to a specialist when appropriate. This referral assures that you have the opportunity for follow-up care with a specialist. All of these measure are taken in an effort to provide you with optimal care, which includes your follow-up. Under all circumstances we always encourage you to contact your private physician who remains a resource for coordinating your care. When calling for follow-up care, please make the office aware that this follow-up is from your recent emergency room visit. If for any reason you are refused follow-up, please contact the [facility] Emergency Department at and asked to speak to the emergency department charge nurse. [facility] [address], [address] [place] [address] 1. Ice, elevate, and motrin or tylenol as needed 2. Follow up with orthopedics, please call the number provided to schedule an appointment 3. Return to ED as needed as discussed Sepsis Event Note - Evaluation Sepsis Screening Result: No Definite Risk - Focused Exam Vital Signs: Vital Signs Temp Pulse Resp BP Pulse Ox 08/11/19 18:29 97.2 F 76 18 112/53 L 96 Date Exam was Performed: 08/11/19 Time Exam was Performed: 19:32
--- NOTE | 2019-08-11 19:26 | CR ---
Left knee: AP, lateral and sunrise patellar views left knee were obtained. Deformity from old healed fracture is noted within the distal femur. Plate and screws are noted within the distal femur which are incompletely included on this exam. Knee prosthesis is noted. Bony structures are slightly osteopenic. Nothing acute is definitely appreciated on this exam. Impression: 1. Old healed fracture with orthopedic hardware. Knee prosthesis is noted. 2. Nothing acute is appreciated on this 3 view left knee study. Diagnostic code #2 Study was dictated in [place] Standard Time
== END 2019-08-11 19:48 | disposition home or self-care (01) ==
LOC: MW.ED 17:06
DX: M25.562 Pain in left knee (principal); E66.9 Obesity, unspecified; Z68.30 Body mass index [BMI] 30.0-30.9, adult; Z88.5 Allergy status to narcotic agent; Z91.09 Other allergy status, other than to drugs and biological substances
CPT/HCPCS: 73562-26-LT; 73562-LT; 99283; 99283-25

== ENCOUNTER 2020-04-13 23:50 | Emergency (ER) | payer OTHER ==
[2020-04-14] MEDS ORDERED: Famotidine 20 MG/2 ML SDV IVPUSH ONE (00:30)
[2020-04-14] MEDS ORDERED: diphenhydrAMINE 50 MG/ML SDV IVPUSH ONE (00:30)
[2020-04-14] MEDS ORDERED: methylPREDNISolone Sodium Succinate 125 MG/2 ML SDV IVPUSH STA (00:35)
--- NOTE | 2020-04-14 00:45 | EDM.PDOC ---
ED HPI GENERAL MEDICAL PROBLEM - General Chief Complaint: Allergic Reaction Stated Complaint: SICK Time Seen by Provider: 04/13/20 23:55 - History of Present Illness INITIAL COMMENTS - FREE TEXT/NARRATIVE: HISTORY AND PHYSICAL: History of present illness: This is a 64-year-old female who presents ER today secondary to rash and itching to her entire body x2 days. Patient reports that she was started on clindamycin and started having a rash. Her last dose of clindamycin was yesterday. Patient reports that she got started on a Medrol Dosepak by her doctor and was told to stop the clindamycin. Patient reports that the rash is not improved and she is continue to itch. Patient reports that she has been taking Benadryl 50 mg twice a day. Patient denies any sore throat, difficulty breathing, change in her voice, or any airway concerns. Patient denies any recent fevers, shakes, chills, nausea, vomiting, diarrhea, dysuria, frequency, urgency, chest pain, shortness of breath. Review of systems: As per history of present illness and below otherwise all systems reviewed and negative. Past medical history: As per history of present illness and as reviewed below otherwise noncontributory. Surgical history: As per history of present illness and as reviewed below otherwise noncontributory. Social history: No reported history of drug or alcohol abuse. Family history: As per history of present illness and as reviewed below otherwise noncontributory. Physical exam: Constitutional: Patient is oriented to person, place, and time. Appears well- developed and well-nourished. No distress. HEENT: Moist mucous membranes Head: Normocephalic and atraumatic Eyes: Right eye exhibits no discharge. Left eye exhibits no discharge. No scleral icterus Neck: Normal range of motion. No tracheal deviation present. Cardiovascular: Normal rate and regular rhythm. Pulmonary: Effort normal, no respiratory distress. Abdominal: No distention Musculoskeletal: Normal range of motion Neurologic: Alert and oriented to person, place and time. Skin: Diffuse hives throughout her body with multiple areas of bruising secondary to excessive scratching. Psychiatric: Normal mood and affect. Behavior is normal. Judgment and thought content normal. Nursing note and vital signs have been reviewed Assessment and plan: 64-year-old female with likely allergic reaction/rash secondary to clindamycin. Patient last dose was yesterday. Patient is currently on steroids and Benadryl. I have discussed with the patient that the clindamycin is likely still in her system and that is why she is continuing to itch. Patient will be given Solu- Medrol 125 mg IV, Benadryl 50 mg IV, Pepcid 20 mg IV and reevaluated. Patient has no airway compromise. Patient has no evidence of anaphylactic reaction. Patient feels improved after meds. Patient be discharged home with Benadryl 50 p.o. every 6 hours, Pepcid 20 mg p.o. twice daily and to continue her Medrol Dosepak. Patient is to follow-up with her doctor as needed. Reassessment at the time of disposition demonstrates that the patient is in no acute distress. The patient has remained stable throughout the entire ED visit and is without objective evidence for acute process requiring urgent intervention or hospitalization. The patient is stable for discharge, counseling is provided as documented above, discussed symptomatic treatment and specific conditions for return. I have spoken with the patient/caregiver and discussed todays findings, in addition to providing specific details for the plan of care. Questions are answered and there is agreement with the plan. Definitive disposition and diagnosis as appropriate pending reevaluation and review of above. - Related Data Allergies Allergy/AdvReac Type Severity Reaction Status Date / Time adhesive tape Allergy Blisters Verified 05/07/20 05:38 clindamycin Allergy Hives Verified 05/07/20 05:38 codeine Allergy Abdominal Verified 05/07/20 05:38 Pain Home Meds: Home Meds . 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: Musculoskeletal History: Reports: Arthritis, Fracture Other Musculoskeletal History: hx of fx left leg and pelvis Neurological History: Reports: Other (See Below) Other Neuro History: Claustrophobic Psychiatric History: Reports: None Endocrine/Metabolic History: Reports: Obesity/BMI 30+ Hematologic History: Reports: Blood Transfusion(s) Immunologic History: Reports: None Oncologic (Cancer) History: Reports: None Dermatologic History: Reports: None - Infectious Disease History Infectious Disease History: Reports: Chicken Pox, Measles, Mumps - Past Surgical History Head Surgeries/Procedures: Reports: None HEENT Surgical History: Reports: Tonsillectomy Cardiovascular Surgical History: Reports: None Respiratory Surgical History: Reports: None GI Surgical History: Reports: Appendectomy, Cholecystectomy Female Surgical History: Reports: Hysterectomy, Lithotripsy/ESWL, Tubal Ligation Endocrine Surgical History: 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 Neurological Surgical History: Reports: None Musculoskeletal Surgical History: Reports: Knee Replacement, ORIF Other Musculoskeletal Surgeries/Procedures:: hardware in left knee and leg Oncologic Surgical History: Reports: None Dermatological Surgical History: Reports: None Social & Family History - Family History Family Medical History: No Pertinent Family History Cardiac: Reports: AR, Other (See Below) Other Cardiac Family History: heart disease Respiratory: Reports: None Psychiatric: Reports: Eating Disorders Endocrine/Metabolic: Reports: Diabetes, type II Oncologic: Reports: Colon - Tobacco Use Tobacco Use Status *Q: Never Tobacco User - Caffeine Use Caffeine Use: Reports: Coffee Caffeine Use Comment: 2 cups daily - Recreational Drug Use Recreational Drug Use: No - Living Situation & Occupation 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 situation: Reports: 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) ED ROS ALLERGIC REACTION - Review of Systems Review Of Systems: See Below ED EXAM GENERAL NO PERIP PULSE - Physical Exam Exam: See Below Course - Vital Signs Last Recorded V/S: Last Vital Signs Temp 99.0 F 04/14/20 01:35 Pulse 77 04/14/20 01:35 Resp 19 04/14/20 01:35 BP 114/66 04/14/20 01:35 Pulse Ox 95 04/14/20 01:35 - Orders/Labs/Meds Meds: Medications Discontinued Medications Generic Name Dose Route Start Last Admin Trade Name Freq PRN Reason Stop Dose Admin Diphenhydramine HCl 50 mg 04/14/20 00:30 04/14/20 00:47 Benadryl IVPUSH 04/14/20 00:31 50 mg ONETIME ONE Administration Famotidine 20 mg 04/14/20 00:30 04/14/20 00:47 Pepcid IVPUSH 04/14/20 00:31 20 mg ONETIME ONE Administration Methylprednisolone Sodium Succinate 125 mg 04/14/20 00:35 04/14/20 00:47 Solu-Medrol IVPUSH 04/14/20 00:36 125 mg ONETIME STA Administration Departure - Departure Time of Disposition: 01:23 Disposition: Home, Self-Care 01 Condition: Good Clinical Impression: Allergic urticaria, Allergic drug rash - Discharge Information Instructions: Hives Referrals: PCP,None [Primary Care Provider] - Forms: ED Department Discharge Additional Instructions: You have been seen and evaluated in the ER today secondary to your rash and itching which is most likely from the clindamycin which is still in your system. We have given you IV steroids as well as IV Benadryl and IV Pepcid to help with your symptoms. Continue taking the steroids are prescribed by your doctor. We prescribed Benadryl 50 mg to take every 6 hours as well as Pepcid 20 mg to take twice a day for the hives. Please make sure they add clindamycin to your list of medication allergies. The following information is given to patients seen in the emergency department who are being discharged to home. This information is to outline your options for follow-up care. We provide all patients seen in our emergency department with a follow-up referral. The need for follow-up, as well as the timing and circumstances, are variable depending upon the specifics of your emergency department visit. If you don't have a primary care physician on staff, we will provide you with a referral. We always advise you to contact your personal physician following an emergency department visit to inform them of the circumstance of the visit and for follow-up with them and/or the need for any referrals to a consulting specialist. The emergency department will also refer you to a specialist when appropriate. This referral assures that you have the opportunity for follow-up care with a s pecialist. All of these measure are taken in an effort to provide you with optimal care, which includes your follow-up. Under all circumstances we always encourage you to contact your private physici an who remains a resource for coordinating your care. When calling for follow-up care, please make the office aware that this follow-up is from your recent emergency room visit. If for any reason you are refused follow-up, please contact the [facility] Emergency Department at and asked to speak to the emergency department charge nurse. [facility] - Primary Care [address] [place] [address] [place] [id number] [id number] Sepsis Event Note (ED) - Evaluation Sepsis Screening Result: No Definite Risk
[2020-04-14 01:37] VITALS: BP 114/66; PULSE 77
== END 2020-04-14 01:35 | disposition home or self-care (01) ==
LOC: MW.ED 23:50
DX: L50.0 Allergic urticaria (principal); T36.8X5A Adverse effect of other systemic antibiotics, initial encounter; K21.9 Gastro-esophageal reflux disease without esophagitis; E66.9 Obesity, unspecified; Z68.29 Body mass index [BMI] 29.0-29.9, adult; Z91.048 Other nonmedicinal substance allergy status; Z88.5 Allergy status to narcotic agent; Z79.899 Other long term (current) drug therapy
CPT/HCPCS: 96374; 96375; 99283; J1200; J2930; J3490; 99282

== ENCOUNTER 2020-05-07 02:09 | Inpatient (IN) | payer OTHER ==
[2020-05-07] MEDS ORDERED: Morphine 4 MG/ML Syringe IVPUSH ONE (02:24)
[2020-05-07] MEDS ORDERED: Sodium Chloride 0.9% 2.5 ML Syringe FLUSH PRN (02:24)
[2020-05-07] MEDS ORDERED: Ondansetron 4 MG/2 ML SDV IVPUSH ONE (02:24)
[2020-05-07] MEDS ORDERED: Albuterol HFA 18 Gm Inhaler INH ONE (02:27)
[2020-05-07] MEDS ORDERED: Morphine 2 MG/ML SYRINGE ONE (02:32)
--- NOTE | 2020-05-07 02:32 | EDM.PDOC ---
ED HPI GENERAL MEDICAL PROBLEM - General Chief Complaint: Respiratory Problem Stated Complaint: TROUBLE BREATHING Time Seen by Provider: 05/07/20 02:09 - History of Present Illness INITIAL COMMENTS - FREE TEXT/NARRATIVE: 64-year-old female who reports that she was previously well until 2 weeks ago with the exception of taking antibiotics for tooth infection. Starting approximately 2 weeks ago she developed a nonproductive cough associated with nausea and emesis and poor p.o. intake some diarrhea diffuse myalgias and arthralgias and some shortness of breath. Symptoms have been constant and persistent without alleviating factors. This evening she developed an additional chest heaviness and tightness associated with worsening shortness of breath. The patient is a non-smoker no recent travel or sick contacts patient states that she has been remaining in her room. She has not been previously tested for COVID-19. She reports panbody pain and abdominal pain particularly during the active coughing. She denies any history of coffee-ground emesis bloody emesis melena or hematochezia. generalized Pain Score (Numeric/FACES): 5 - Related Data Allergies Allergy/AdvReac Type Severity Reaction Status Date / Time adhesive tape Allergy Blisters Verified 04/13/20 23:54 clindamycin Allergy Hives Verified 04/14/20 01:38 codeine Allergy Abdominal Verified 04/13/20 23:54 Pain Home Meds: Home Meds . [No Known Home Meds] 05/07/20 [History] Past Medical History - Past Health History Medical/Surgical History: Denies Medical/Surgical History HEENT History: Reports: None Cardiovascular History: Reports: None Other Cardiovascular History: brain aneurysm Respiratory History: Reports: None Gastrointestinal History: Reports: GERD Genitourinary History: Reports: Renal Calculus Other Genitourinary History: Renal complication W Stent placement [employer] History: Reports: Musculoskeletal History: Reports: Arthritis, Fracture Other Musculoskeletal History: hx of fx left leg and pelvis Neurological History: Reports: Other (See Below) Other Neuro History: Claustrophobic Psychiatric History: Reports: None Endocrine/Metabolic History: Reports: Obesity/BMI 30+ Hematologic History: Reports: Blood Transfusion(s) Immunologic History: Reports: None Oncologic (Cancer) History: Reports: None Dermatologic History: Reports: None - Infectious Disease History Infectious Disease History: Reports: Chicken Pox, Measles, Mumps - Past Surgical History Head Surgeries/Procedures: Reports: None HEENT Surgical History: Reports: Tonsillectomy Cardiovascular Surgical History: Reports: None Respiratory Surgical History: Reports: None GI Surgical History: Reports: Appendectomy, Cholecystectomy Female Surgical History: Reports: Hysterectomy, Lithotripsy/ESWL, Tubal Ligation Endocrine Surgical History: 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 Neurological Surgical History: Reports: None Musculoskeletal Surgical History: Reports: Knee Replacement, ORIF Other Musculoskeletal Surgeries/Procedures:: hardware in left knee and leg Oncologic Surgical History: Reports: None Dermatological Surgical History: Reports: None Social & Family History - Family History Family Medical History: No Pertinent Family History Cardiac: Reports: OR, Other (See Below) Other Cardiac Family History: heart disease Respiratory: Reports: None Psychiatric: Reports: Eating Disorders Endocrine/Metabolic: Reports: Diabetes, type II Oncologic: Reports: Colon - Caffeine Use Caffeine Use: Reports: Coffee Caffeine Use Comment: 2 cups daily - Living Situation & Occupation Living situation: Reports: 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 Eyes: No vision problems. ENT: No sore throat. Neck: No neck stiffness. Respiratory: Per HPI Cardiac: Per HPI Gastrointestinal: Per HPI Urinary: No dysuria. Musculoskeletal: Per HPI Neurologic: No headache. ED EXAM, GENERAL - Physical Exam Exam: See Below Free Text/Narrative:: General Appearance: No acute distress Skin: No rash HEENT: Normocephalic/atraumatic, sclera anicteric, mucous membranes dry Neck: Normal range of motion Chest and Lungs: Normal work of breathing but expiratory wheeze with coughing Cardiovascular: Mildly tachycardic rate with a regular rhythm intact distal perfusion Abdomen: Soft, non-tender Back: Normal Musculoskeletal: No edema or tenderness Neurologic: Awake, alert, no obvious deficits, moving all extremities Psychiatric: Appropriate, cooperative #1 Interpretation EKG Date: 05/07/20 Time: 02:30 EKG Interpretation Comments: Sinus tachycardia rate of 102 low voltage anteriorly consistent with body habitus QTC prolonged at 545 Global nonspecific T wave flattening is nonspecific Course - Vital Signs Last Recorded V/S: Last Vital Signs Temp 100.0 F 05/07/20 02:13 Pulse 111 H 05/07/20 02:13 Resp 20 05/07/20 02:13 BP 111/48 L 05/07/20 02:13 Pulse Ox 92 L 05/07/20 02:20 - Orders/Labs/Meds Orders: Active Orders 24 hr Category Date Time Status RT Post Treatment Assessment [RC] Click to Edit Care 05/07/20 02:27 Active RT Pre-Treatment Assessment [RC] Click to Edit Care 05/07/20 02:27 Active PROCALCITONIN [REF] Stat Lab 05/07/20 02:25 Received Lactated Ringers [Ringers, Lactated] 1,000 ml Med 05/07/20 04:06 Active IV .BOLUS Potassium Chloride Riders [KCL 40 MEQ in Water 100 ML] Med 05/07/20 04:00 Active 40 meq Premix Bag 1 bag IV ONETIME Sodium Chloride 0.9% [Saline Flush] Med 05/07/20 02:24 Active 10 ml FLUSH ASDIRECTED PRN Sodium Chloride 0.9% [Saline Flush] Med 05/07/20 02:24 Active 2.5 ml FLUSH ASDIRECTED PRN dexAMETHasone [Decadron] Med 05/07/20 04:32 Once 6 mg IVPUSH ONETIME ONE Saline Lock Insert [OM.PC] Stat Oth 05/07/20 02:24 Ordered Medication Orders Potassium Chloride 40 meq/ (Premix) 100 mls @ 25 mls/hr IV ONETIME ONE Stop: 05/07/20 07:59 Last Admin: 05/07/20 04:13 Dose: 25 mls/hr Documented by: GABRIEL Lactated Ringer's (Ringers, Lactated) 1,000 mls @ 125 mls/hr IV .BOLUS ONE Stop: 05/07/20 12:05 Last Admin: 05/07/20 04:14 Dose: 125 mls/hr Documented by: GABRIEL Sodium Chloride (Saline Flush) 10 ml FLUSH ASDIRECTED PRN PRN Reason: Keep Vein Open Last Admin: 05/07/20 04:05 Dose: 10 ml Documented by: Admin: 05/07/20 04:04 Dose: 10 ml Documented by: GABRIEL Sodium Chloride (Saline Flush) 2.5 ml FLUSH ASDIRECTED PRN PRN Reason: Keep Vein Open Labs: Laboratory Tests 05/07/20 05/07/20 05/07/20 Range/Units 02:25 02:25 02:25 WBC 5.44 (4.0-11.0) K/uL RBC 4.53 (4.30-5.90) M/uL Hgb 13.6 (12.0-16.0) g/dL Hct 40.8 (36.0-46.0) % MCV 90.1 (80.0-98.0) fL MCH 30.0 (27.0-32.0) pg MCHC 33.3 (31.0-37.0) g/dL RDW Std Deviation 43.4 (28.0-62.0) fl RDW Coeff of Jason 13 (11.0-15.0) % Plt Count 248 (150-400) K/uL MPV 9.10 (7.40-12.00) fL Neut % (Auto) 76.0 (48.0-80.0) % Lymph % (Auto) 15.3 L (16.0-40.0) % [place] % (Auto) 8.3 (0.0-15.0) % Eos % (Auto) 0.2 (0.0-7.0) % Baso % (Auto) 0.2 (0.0-1.5) % Neut # (Auto) 4.1 (1.4-5.7) K/uL Lymph # (Auto) 0.8 (0.6-2.4) K/uL [place] # (Auto) 0.5 (0.0-0.8) K/uL Eos # (Auto) 0.0 (0.0-0.7) K/uL Baso # (Auto) 0.0 (0.0-0.1) K/uL Nucleated RBC % 0.0 /100WBC Nucleated RBCs # 0 K/uL D-Dimer, Quantitative 0.64 H (0.0-0.50) mg/L FEU Sodium 137 (136-145) mmol/L Potassium 3.1 L (3.5-5.1) mmol/L Chloride 99 (98-107) mmol/L Carbon Dioxide 28.4 (21.0-32.0) mmol/L BUN 9 (7.0-18.0) mg/dL Creatinine 1.0 (0.6-1.0) mg/dL Est Cr Clr Drug Dosing 47.63 mL/min Estimated GFR (MDRD) 56.0 ml/min Glucose 118 H (74-106) mg/dL Calcium 8.4 L (8.5-10.1) mg/dL Magnesium 2.0 (1.8-2.4) mg/dL Total Bilirubin 0.4 (0.2-1.0) mg/dL AST 31 (15-37) IU/L ALT 27 (14-63) IU/L Alkaline Phosphatase 65 (46-116) U/L Troponin I < 0.050 (0.000-0.056) ng/mL B-Natriuretic Peptide (<100) PG/ML Total Protein 7.0 (6.4-8.2) g/dL Albumin 2.6 L (3.4-5.0) g/dL Globulin 4.4 H (2.6-4.0) g/dL Albumin/Globulin Ratio 0.6 L (0.9-1.6) Lipase 92 (73-393) U/L SARS-CoV-2 RNA (GORGE) (NEGATIVE) 05/07/20 05/07/20 Range/Units 02:25 02:45 WBC (4.0-11.0) K/uL RBC (4.30-5.90) M/uL Hgb (12.0-16.0) g/dL Hct (36.0-46.0) % MCV (80.0-98.0) fL MCH (27.0-32.0) pg MCHC (31.0-37.0) g/dL RDW Std Deviation (28.0-62.0) fl RDW Coeff of Jason (11.0-15.0) % Plt Count (150-400) K/uL MPV (7.40-12.00) fL Neut % (Auto) (48.0-80.0) % Lymph % (Auto) (16.0-40.0) % [place] % (Auto) (0.0-15.0) % Eos % (Auto) (0.0-7.0) % Baso % (Auto) (0.0-1.5) % Neut # (Auto) (1.4-5.7) K/uL Lymph # (Auto) (0.6-2.4) K/uL [place] # (Auto) (0.0-0.8) K/uL Eos # (Auto) (0.0-0.7) K/uL Baso # (Auto) (0.0-0.1) K/uL Nucleated RBC % /100WBC Nucleated RBCs # K/uL D-Dimer, Quantitative (0.0-0.50) mg/L FEU Sodium (136-145) mmol/L Potassium (3.5-5.1) mmol/L Chloride (98-107) mmol/L Carbon Dioxide (21.0-32.0) mmol/L BUN (7.0-18.0) mg/dL Creatinine (0.6-1.0) mg/dL Est Cr Clr Drug Dosing mL/min Estimated GFR (MDRD) ml/min Glucose (74-106) mg/dL Calcium (8.5-10.1) mg/dL Magnesium (1.8-2.4) mg/dL Total Bilirubin (0.2-1.0) mg/dL AST (15-37) IU/L ALT (14-63) IU/L Alkaline Phosphatase (46-116) U/L Troponin I (0.000-0.056) ng/mL B-Natriuretic Peptide 22 (<100) PG/ML Total Protein (6.4-8.2) g/dL Albumin (3.4-5.0) g/dL Globulin (2.6-4.0) g/dL Albumin/Globulin Ratio (0.9-1.6) Lipase (73-393) U/L SARS-CoV-2 RNA (GORGE) POSITIVE H (NEGATIVE) Meds: Medications Generic Name Dose Route Start Last Admin Trade Name Freq PRN Reason Stop Dose Admin Potassium Chloride 40 meq/ 100 mls @ 25 mls/hr 05/07/20 04:00 05/07/20 04:13 Premix IV 05/07/20 07:59 25 mls/hr ONETIME ONE Administration Lactated Ringer's 1,000 mls @ 125 mls/hr 05/07/20 04:06 05/07/20 04:14 Ringers, Lactated IV 05/07/20 12:05 125 mls/hr .BOLUS ONE Administration Sodium Chloride 10 ml 05/07/20 02:24 05/07/20 04:05 Saline Flush FLUSH 10 ml ASDIRECTED PRN Administration Keep Vein Open Sodium Chloride 2.5 ml 05/07/20 02:24 Saline Flush FLUSH ASDIRECTED PRN Keep Vein Open Discontinued Medications Generic Name Dose Route Start Last Admin Trade Name Freq PRN Reason Stop Dose Admin Albuterol 4 gm 05/07/20 02:27 05/07/20 02:38 Ventolin Hfa INH 05/07/20 02:28 4 inh ONETIME ONE Administration Iopamidol 100 ml 05/07/20 03:47 05/07/20 03:48 Isovue Multipack-370 (76%) IVPUSH 05/07/20 03:48 100 ml ONETIME STA Administration Morphine Sulfate 2 mg 05/07/20 02:24 05/07/20 02:36 Morphine IVPUSH 05/07/20 02:25 Not Given ONETIME ONE Morphine Sulfate Confirm 05/07/20 02:32 05/07/20 02:36 Morphine Administered 05/07/20 02:33 Not Given Dose 2 mg .ROUTE .STK-MED ONE Morphine Sulfate 2 mg 05/07/20 02:35 05/07/20 02:49 Morphine IVPUSH 05/07/20 02:36 2 mg ONETIME ONE Administration Ondansetron HCl 4 mg 05/07/20 02:24 05/07/20 02:37 Zofran IVPUSH 05/07/20 02:25 4 mg ONETIME ONE Administration Departure - Departure Time of Disposition: 04:37 Disposition: Admitted As Inpatient 67 Clinical Impression: Acute hypoxemic respiratory failure due to COVID-19 - Discharge Information Referrals: PCP,None [Primary Care Provider] - Forms: ED Department Discharge Sepsis Event Note (ED) - Evaluation Sepsis Screening Result: No Definite Risk - Focused Exam Vital Signs: Vital Signs Temp Pulse Resp BP Pulse Ox 05/07/20 02:20 92 L 05/07/20 02:13 100.0 F 111 H 20 111/48 L 89 L - My Orders Last 24 Hours: My Active Orders 05/07/20 02:24 Sodium Chloride 0.9% [Saline Flush] 10 ml FLUSH ASDIRECTED PRN Sodium Chloride 0.9% [Saline Flush] 2.5 ml FLUSH ASDIRECTED PRN Saline Lock Insert [OM.PC] Stat 05/07/20 02:25 PROCALCITONIN [REF] Stat 05/07/20 02:27 RT Post Treatment Assessment [RC] Click to Edit RT Pre-Treatment Assessment [RC] Click to Edit 05/07/20 04:00 Potassium Chloride Riders [KCL 40 MEQ in Water 100 ML] 40 meq Premix Bag 1 bag IV ONETIME 05/07/20 04:06 Lactated Ringers [Ringers, Lactated] 1,000 ml IV .BOLUS 05/07/20 04:32 dexAMETHasone [Decadron] 6 mg IVPUSH ONETIME ONE - Assessment/Plan Last 24 Hours: My Active Orders 05/07/20 02:24 Sodium Chloride 0.9% [Saline Flush] 10 ml FLUSH ASDIRECTED PRN Sodium Chloride 0.9% [Saline Flush] 2.5 ml FLUSH ASDIRECTED PRN Saline Lock Insert [OM.PC] Stat 05/07/20 02:25 PROCALCITONIN [REF] Stat 05/07/20 02:27 RT Post Treatment Assessment [RC] Click to Edit RT Pre-Treatment Assessment [RC] Click to Edit 05/07/20 04:00 Potassium Chloride Riders [KCL 40 MEQ in Water 100 ML] 40 meq Premix Bag 1 bag IV ONETIME 05/07/20 04:06 Lactated Ringers [Ringers, Lactated] 1,000 ml IV .BOLUS 05/07/20 04:32 dexAMETHasone [Decadron] 6 mg IVPUSH ONETIME ONE Assessment:: 64-year-old female presenting with signs and symptoms that seem most consistent with COVID-19 infection with associated acute hypoxic respiratory failure with room air O2 saturations of 87 to 88%. Patient placed on nasal cannula 4 puffs of albuterol inhaler is been ordered. Chest x-ray to evaluate for any Covid changes as well as exclude lobar pneumonia. Given the worsening chest pain and shortness of breath must consider pulmonary embolism and D-dimer added. Low concern for ACS or myocarditis though this is possible EKG and troponin pending. BNP as well to assess for any contribution of heart failure though patient has no lower extremity edema and I doubt this will be elevated. Procalcitonin ordered to help differentiate between any acute bacterial process. COVID-19 swab ordered. Zofran and morphine for symptom control will hold on fluids for now pending labs. 0433: Labs show a normal troponin and BNP chest x-ray consistent with Covid. D- dimer mildly elevated and CT pulmonary angiography again shows Covid negative for PE. White count is normal electrolytes are notable for hypokalemia which may account for some of the flattened T waves notable on the EKG. Potassium is being repleted patient remained stable on nasal cannula 6 mg of Decadron ordered and will discuss with hospitalist about admission. 0437: Pt discussed with Dr. Sagastume and will admit for further care.
[2020-05-07] MEDS ORDERED: Morphine 2 MG/ML SYRINGE IVPUSH ONE (02:35)
[2020-05-07 03:06] LABS: BLOOD UREA NITROGEN,BUN 9 mg/dL (7.0-18.0); CARBON DIOXIDE,CO2 28.4 mmol/L (21.0-32.0); CHLORIDE,CL 99 mmol/L (98-107); GLUCOSE RANDOM 118 mg/dL (74-106); LIPASE 92 U/L (73-393); POTASSIUM,K 3.1 mmol/L (3.5-5.1); SODIUM,NA 137 mmol/L (136-145)
--- NOTE | 2020-05-07 03:37 | CR ---
INDICATION: Cough, shortness of breath TECHNIQUE: Portable upright AP view of the chest COMPARISON: AP chest radiograph 08/20/2018 FINDINGS: There is bilateral patchy airspace disease with focal consolidation in the peripheral right lung. A 2 cm round nodular density is noted in the left lung base. There is no sizable pleural effusion or pneumothorax. The cardiomediastinal silhouette is normal. The visualized osseous structures are unremarkable. IMPRESSION: 1. Patchy bilateral airspace disease concerning for COVID-19 pneumonia. Correlate clinically. 2. A 2 cm nodular density in the left lung base. Consider follow-up contrast enhanced CT. Dictated by Cooper Roberson MD @ May 07 2020 3:32AM Signed by Dr. Cooper Roberson @ May 07 2020 3:36AM
[2020-05-07] MEDS ORDERED: Iopamidol 755 MG/ML 500 ML Multipack Bottle IVPUSH STA (03:47)
[2020-05-07] MEDS ORDERED: Potassium Chloride Riders 40 MEQ in Premix Bag 1 BAG IV ONE (04:00)
[2020-05-07] MEDS: Sodium Chloride 0.9% 10 ML Syringe FLUSH PRN ×2 (04:04→04:05)
[2020-05-07] MEDS ORDERED: Lactated Ringers 1,000 ML IV ONE (04:06)
--- NOTE | 2020-05-07 04:26 | CT ---
INDICATION: Shortness of breath, hypoxia, cough, elevated D-dimer TECHNIQUE: Contrast enhanced axial CT imaging through the chest, optimized for assessment of the pulmonary arterial tree. 75 mL Isovue 370 contrast agent was administered intravenously. Sagittal and coronal reconstructions are provided. COMPARISON: None FINDINGS: There is adequate opacification of the pulmonary arterial tree without evidence of thromboembolism. The main pulmonary artery is nondilated. The heart is non enlarged. There is no pericardial effusion. The thoracic aorta is normal in caliber. There are irregular ground-glass infiltrates involving all lung lobes, with peripheral predominance. There is no pleural effusion or pneumothorax. Mild bilateral hilar lymphadenopathy is presumably reactive. The thoracic osseous structures are unremarkable. No significant abnormality is demonstrated in the visualized upper abdomen. IMPRESSION: 1. Bilateral irregular ground-glass infiltrates, compatible with COVID-19 pneumonia. 2. No evidence of pulmonary thromboembolism. Please note that all CT scans at this facility use dose modulation, iterative reconstruction, and/or weight-based dosing when appropriate to reduce radiation dose to as low as reasonably achievable. Dictated by Cooper Roberson MD @ May 07 2020 4:18AM Signed by Dr. Cooper Roberson @ May 07 2020 4:24AM
[2020-05-07] MEDS ORDERED: Dexamethasone 10 MG/ML SDV IVPUSH ONE (04:32)
[2020-05-07] MEDS ORDERED: Morphine 2 MG/ML SYRINGE IVPUSH PRN (06:08)
--- NOTE | 2020-05-07 07:46 | PCM.HP.2 ---
H&P History of Present Illness - General Date of Service: 05/07/20 Admit Problem/Dx: Admission Diagnosis/Problem Admission Diagnosis/Problem Hypoxia - History of Present Illness Initial Comments - Free Text/Narative: 64-year-old female admitted for COVID-19 infection. Patient states 2-week history of nonproductive cough, nausea, poor oral intake, diarrhea, chills, shortness of breath, generalized weakness. Patient presented to the emergency department due to severe shortness of breath and chest tightness that was progressing. Patient denies any respiratory past medical history, patient does not smoke, patient denies being in contact with any individuals were positive for COVID-19. On admission patient states chills and nausea. Patient denies abdominal pain, diarrhea, fever, headache. Patient states chest tightness and shortness of breath have improved slightly. D-dimer 0.64, CTA obtained no pul monary embolism but groundless opacities bilaterally was noted, significant for COVID infection. Patient was also hypokalemic, K+ 3.1, 40 mEq given one time in the ED, will recheck BMP and supplement K+ if needed. generalized Pain Score (Numeric/FACES): 6 - Related Data Allergies/Adverse Reactions: Allergies Allergy/AdvReac Type Severity Reaction Status Date / Time adhesive tape Allergy Blisters Verified 05/07/20 05:38 clindamycin Allergy Hives Verified 05/07/20 05:38 codeine Allergy Abdominal Verified 05/07/20 05:38 Pain Home Medications: Home Meds . [No Known Home Meds] 05/07/20 [History] Past Medical History - Past Health History Medical/Surgical History: Denies Medical/Surgical History HEENT History: Reports: None Cardiovascular History: Reports: None Other Cardiovascular History: brain aneurysm Respiratory History: Reports: None Gastrointestinal History: Reports: GERD Genitourinary History: Reports: Renal Calculus Other Genitourinary History: Renal complication W Stent placement [employer] INS[employer]OR History: Reports: Musculoskeletal History: Reports: Arthritis, Fracture Other Musculoskeletal History: hx of fx left leg and pelvis Neurological History: Reports: Other (See Below) Other Neuro History: Claustrophobic Psychiatric History: Reports: None Endocrine/Metabolic History: Reports: Obesity/BMI 30+ Hematologic History: Reports: Blood Transfusion(s) Immunologic History: Reports: None Oncologic (Cancer) History: Reports: None Dermatologic History: Reports: None - Infectious Disease History Infectious Disease History: Reports: Chicken Pox, Measles, Mumps, Scarlet Fever - Past Surgical History Head Surgeries/Procedures: Reports: None HEENT Surgical History: Reports: Tonsillectomy Cardiovascular Surgical History: Reports: None Respiratory Surgical History: Reports: None GI Surgical History: Reports: Appendectomy, Cholecystectomy Female Surgical History: Reports: Hysterectomy, Lithotripsy/ESWL, Tubal Ligation Endocrine Surgical History: 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 Neurological Surgical History: Reports: None Musculoskeletal Surgical History: Reports: Knee Replacement, ORIF Other Musculoskeletal Surgeries/Procedures:: hardware in left knee and leg Oncologic Surgical History: Reports: None Dermatological Surgical History: Reports: None Social & Family History - Family History Family Medical History: No Pertinent Family History Cardiac: Reports: [place], Other (See Below) Other Cardiac Family History: heart disease Respiratory: Reports: None Psychiatric: Reports: Eating Disorders Endocrine/Metabolic: Reports: Diabetes, type II Oncologic: Reports: Colon - Tobacco Use Tobacco Use Status *Q: Never Tobacco User Second Hand Smoke Exposure: No - Caffeine Use Caffeine Use: Reports: None Caffeine Use Comment: 2 cups daily - Recreational Drug Use Recreational Drug Use: No - Living Situation & Occupation Living situation: Reports: 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 Denies: Fever Pulmonary: Reports: Shortness of Breath, Cough Cardiovascular: Reports: Chest Pain. Denies: Palpitations, Edema Gastrointestinal: Reports: Decreased Appetite, Nausea. Denies: Abdominal Pain, Vomiting Psychiatric: Denies: Confusion, Depression Neurological: Denies: Confusion, Dizziness, Headache Exam - Exam Exam: See Below - Vital Signs Vital Signs: Last Vital Signs Temp 99.3 F 05/07/20 05:33 Pulse 105 H 05/07/20 05:33 Resp 20 05/07/20 05:33 BP 107/59 L 05/07/20 05:33 Pulse Ox 93 L 05/07/20 05:33 Weight: 190 lb 1.6 oz - Exam Quality Assessment: Supplemental Oxygen General: Alert, Oriented Lungs: Clear to Auscultation, Normal Respiratory Effort Cardiovascular: Regular Rate, Regular Rhythm GI/Abdominal Exam: Normal Bowel Sounds, Soft, Non-Tender Extremities: No Pedal Edema Neuro Extensive - Mental Status: Alert, Oriented x3 Psychiatric: Alert - Patient Data Lab Results Last 24 hrs: Laboratory Results - last 24 hr 05/07/20 05/07/20 05/07/20 Range/Units 02:25 02:25 02:25 WBC 5.44 (4.0-11.0) K/uL RBC 4.53 (4.30-5.90) M/uL Hgb 13.6 (12.0-16.0) g/dL Hct 40.8 (36.0-46.0) % MCV 90.1 (80.0-98.0) fL MCH 30.0 (27.0-32.0) pg MCHC 33.3 (31.0-37.0) g/dL RDW Std Deviation 43.4 (28.0-62.0) fl RDW Coeff of Jason 13 (11.0-15.0) % Plt Count 248 (150-400) K/uL MPV 9.10 (7.40-12.00) fL Neut % (Auto) 76.0 (48.0-80.0) % Lymph % (Auto) 15.3 L (16.0-40.0) % Shoshone % (Auto) 8.3 (0.0-15.0) % Eos % (Auto) 0.2 (0.0-7.0) % Baso % (Auto) 0.2 (0.0-1.5) % Neut # (Auto) 4.1 (1.4-5.7) K/uL Lymph # (Auto) 0.8 (0.6-2.4) K/uL Shoshone # (Auto) 0.5 (0.0-0.8) K/uL Eos # (Auto) 0.0 (0.0-0.7) K/uL Baso # (Auto) 0.0 (0.0-0.1) K/uL Nucleated RBC % 0.0 /100WBC Nucleated RBCs # 0 K/uL D-Dimer, Quantitative 0.64 H (0.0-0.50) mg/L FEU Sodium 137 (136-145) mmol/L Potassium 3.1 L (3.5-5.1) mmol/L Chloride 99 (98-107) mmol/L Carbon Dioxide 28.4 (21.0-32.0) mmol/L BUN 9 (7.0-18.0) mg/dL Creatinine 1.0 (0.6-1.0) mg/dL Est Cr Clr Drug Dosing 47.63 mL/min Estimated GFR (MDRD) 56.0 ml/min Glucose 118 H (74-106) mg/dL Calcium 8.4 L (8.5-10.1) mg/dL Magnesium 2.0 (1.8-2.4) mg/dL Total Bilirubin 0.4 (0.2-1.0) mg/dL AST 31 (15-37) IU/L ALT 27 (14-63) IU/L Alkaline Phosphatase 65 (46-116) U/L Troponin I < 0.050 (0.000-0.056) ng/mL B-Natriuretic Peptide (<100) PG/ML Total Protein 7.0 (6.4-8.2) g/dL Albumin 2.6 L (3.4-5.0) g/dL Globulin 4.4 H (2.6-4.0) g/dL Albumin/Globulin Ratio 0.6 L (0.9-1.6) Lipase 92 (73-393) U/L SARS-CoV-2 RNA (GORGE) (NEGATIVE) 05/07/20 05/07/20 Range/Units 02:25 02:45 WBC (4.0-11.0) K/uL RBC (4.30-5.90) M/uL Hgb (12.0-16.0) g/dL Hct (36.0-46.0) % MCV (80.0-98.0) fL MCH (27.0-32.0) pg MCHC (31.0-37.0) g/dL RDW Std Deviation (28.0-62.0) fl RDW Coeff of Jason (11.0-15.0) % Plt Count (150-400) K/uL MPV (7.40-12.00) fL Neut % (Auto) (48.0-80.0) % Lymph % (Auto) (16.0-40.0) % Shoshone % (Auto) (0.0-15.0) % Eos % (Auto) (0.0-7.0) % Baso % (Auto) (0.0-1.5) % Neut # (Auto) (1.4-5.7) K/uL Lymph # (Auto) (0.6-2.4) K/uL Shoshone # (Auto) (0.0-0.8) K/uL Eos # (Auto) (0.0-0.7) K/uL Baso # (Auto) (0.0-0.1) K/uL Nucleated RBC % /100WBC Nucleated RBCs # K/uL D-Dimer, Quantitative (0.0-0.50) mg/L FEU Sodium (136-145) mmol/L Potassium (3.5-5.1) mmol/L Chloride (98-107) mmol/L Carbon Dioxide (21.0-32.0) mmol/L BUN (7.0-18.0) mg/dL Creatinine (0.6-1.0) mg/dL Est Cr Clr Drug Dosing mL/min Estimated GFR (MDRD) ml/min Glucose (74-106) mg/dL Calcium (8.5-10.1) mg/dL Magnesium (1.8-2.4) mg/dL Total Bilirubin (0.2-1.0) mg/dL AST (15-37) IU/L ALT (14-63) IU/L Alkaline Phosphatase (46-116) U/L Troponin I (0.000-0.056) ng/mL B-Natriuretic Peptide 22 (<100) PG/ML Total Protein (6.4-8.2) g/dL Albumin (3.4-5.0) g/dL Globulin (2.6-4.0) g/dL Albumin/Globulin Ratio (0.9-1.6) Lipase (73-393) U/L SARS-CoV-2 RNA (GORGE) POSITIVE H (NEGATIVE) Result Diagrams: 05/07/20 02:25 05/07/20 02:25 Sepsis Event Note - Evaluation Sepsis Screening Result: No Definite Risk - Focused Exam Vital Signs: Vital Signs Temp Pulse Resp BP Pulse Ox 05/07/20 05:33 99.3 F 105 H 20 107/59 L 93 L 05/07/20 03:40 99.9 F 107 H 22 H 110/62 94 L 05/07/20 02:20 92 L 05/07/20 02:13 100.0 F 111 H 20 111/48 L 89 L Problem List Initiated/Reviewed/Updated: Yes Orders Last 24hrs: Active Orders 24 hr Category Date Time Status Patient Status [ADT] Routine ADT 05/07/20 04:36 Active Cardiac Monitoring [RC] . DIRECTED Care 05/07/20 05:02 Active Influenza Vaccine Charge [RC] .DISCHARGE Care 05/07/20 06:02 Active RT Post Treatment Assessment [RC] Click to Edit Care 05/07/20 02:27 Active RT Pre-Treatment Assessment [RC] Click to Edit Care 05/07/20 02:27 Active Telemetry Monitoring [Cardiac Monitoring] [RC] Q8H Care 05/07/20 05:20 Active Regular Diet [DIET] Diet 05/07/20 Breakfast Active CBC WITH AUTO DIFF [HEME] Routine Lab 05/08/20 05:11 Ordered CMP [COMPREHENSIVE METABOLIC PN,CMP] [CHEM] Routine Lab 05/08/20 05:11 Ordered PROCALCITONIN [REF] Stat Lab 05/07/20 02:25 Received FLU Vacc [id number] 36MOS UP/PF [Afluria Quad 2019- ( Med 05/07/20 10:00 Once 3YR UP)] 60 mcg IM .ONCE ONE Lactated Ringers [Ringers, Lactated] 1,000 ml Med 05/07/20 04:06 Active IV .BOLUS Morphine Med 05/07/20 06:08 Active 2 mg IVPUSH Q3H PRN Potassium Chloride Riders [KCL 40 MEQ in Water 100 ML] Med 05/07/20 04:00 Active 40 meq Premix Bag 1 bag IV ONETIME Sodium Chloride 0.9% [Saline Flush] Med 05/07/20 02:24 Active 10 ml FLUSH ASDIRECTED PRN Sodium Chloride 0.9% [Saline Flush] Med 05/07/20 02:24 Active 2.5 ml FLUSH ASDIRECTED PRN dexAMETHasone Med 05/08/20 09:00 Active 6 mg PO DAILY Saline Lock Insert [OM.PC] Stat Oth 05/07/20 02:24 Ordered Medication Orders Dexamethasone (Dexamethasone) 6 mg PO DAILY GLEN Potassium Chloride 40 meq/ (Premix) 100 mls @ 25 mls/hr IV ONETIME ONE Stop: 05/07/20 07:59 Last Admin: 05/07/20 04:13 Dose: 25 mls/hr Documented by: IVERKAY Lactated Ringer's (Ringers, Lactated) 1,000 mls @ 125 mls/hr IV .BOLUS ONE Stop: 05/07/20 12:05 Last Admin: 05/07/20 04:14 Dose: 125 mls/hr Documented by: GABRIEL Influenza Virus Vaccine (Afluria Quad 2019- (3yr Up)) 60 mcg IM .ONCE ONE Stop: 05/07/20 10:01 Morphine Sulfate (Morphine) 2 mg IVPUSH Q3H PRN PRN Reason: Pain Last Admin: 05/07/20 06:26 Dose: 2 mg Documented by: KIRSTIN Sodium Chloride (Saline Flush) 10 ml FLUSH ASDIRECTED PRN PRN Reason: Keep Vein Open Last Admin: 05/07/20 04:05 Dose: 10 ml Documented by: Admin: 05/07/20 04:04 Dose: 10 ml Documented by: GABRIEL Sodium Chloride (Saline Flush) 2.5 ml FLUSH ASDIRECTED PRN PRN Reason: Keep Vein Open Assessment/Plan Comment:: COVID-19 infectionremdesivir, dexamethasone, Lovenox 40 mg daily, Combivent, incentive spirometry, prone positioning [id number] mEq given 1 time in the ED, will recheck BMP and supplement potassium as needed.
[2020-05-07] MEDS ORDERED: Potassium Chloride 20 MEQ Tab.ER PO ONE (07:56)
[2020-05-07] MEDS ORDERED: Albuterol/Ipratropium 4 GM Inhalation Spray INH PRN (08:05)
[2020-05-07] MEDS ORDERED: REMDESIVIR 200 MG in Sodium Chloride 0.9% 250 ML IV ONE ×2 (08:54→10:30)
[2020-05-07] MEDS ORDERED: Enoxaparin 40 MG/0.4 ML Syringe SUBCUT SCH (09:00)
[2020-05-07] MEDS ORDERED: FLU Vacc QS2020-21 36MOS UP/PF 60 MCG/0.5 ML Syringe IM ONE (10:00)
[2020-05-07] MEDS ORDERED: Benzonatate 100 MG Cap PO PRN (14:57)
[2020-05-07] MEDS ORDERED: Acetaminophen 325 MG Tab PO PRN (14:58)
[2020-05-07 16:14] LABS: BLOOD UREA NITROGEN,BUN 10 mg/dL (7.0-18.0); CARBON DIOXIDE,CO2 25.5 mmol/L (21.0-32.0); CHLORIDE,CL 105 mmol/L (98-107); GLUCOSE RANDOM 160 mg/dL (74-106); SODIUM,NA 141 mmol/L (136-145)
[2020-05-07] MEDS: Ondansetron 4 MG/2 ML SDV IVPUSH PRN (21:15)
[2020-05-08] MEDS: Ondansetron 4 MG/2 ML SDV IVPUSH PRN (01:08)
[2020-05-08 07:09] LABS: BLOOD UREA NITROGEN,BUN 12 mg/dL (7.0-18.0); CARBON DIOXIDE,CO2 29.4 mmol/L (21.0-32.0); CHLORIDE,CL 106 mmol/L (98-107); GLUCOSE RANDOM 121 mg/dL (74-106); POTASSIUM,K 3.8 mmol/L (3.5-5.1); SODIUM,NA 140 mmol/L (136-145)
[2020-05-08] MEDS: Dexamethasone 4 MG Tab PO SCH (08:47)
[2020-05-08] MEDS: Enoxaparin 40 MG/0.4 ML Syringe SUBCUT SCH (08:48)
[2020-05-08] MEDS ORDERED: REMDESIVIR 100 MG in Sodium Chloride 0.9% 100 ML IV SCH ×2 (09:30→09:47)
--- NOTE | 2020-05-08 14:11 | PCM.PN ---
- General Info Date of Service: 05/08/20 Subjective Update: Patient states continued shortness of breath, chest pain, generalized weakness and fatigue. Patient denies fever, chills, nausea, vomiting, abdominal pain, diarrhea. Patient currently on room air oxygen. - Review of Systems General: Reports: Weakness, Fatigue. Denies: Fever, Chills Pulmonary: Reports: Shortness of Breath, Pleuritic Chest Pain. Denies: Cough Cardiovascular: Reports: Chest Pain. Denies: Palpitations Gastrointestinal: Denies: Abdominal Pain, Decreased Appetite, Nausea, Vomiting Musculoskeletal: Denies: Back Pain Neurological: Denies: Confusion, Dizziness, Headache - Patient Data Vitals - Most Recent: Last Vital Signs Temp 97.7 F 05/08/20 11:54 Pulse 62 05/08/20 11:54 Resp 18 05/08/20 11:54 BP 91/47 L 05/08/20 11:54 Pulse Ox 92 L 05/08/20 11:54 Weight - Most Recent: 190 lb 1.6 oz I&O - Last 24 Hours: Intake & Output 05/07/20 05/08/20 05/08/20 22:59 06:59 14:59 Intake Total 620 900 Output Total 1200 300 Balance -580 600 Lab Results Last 24 Hours: Laboratory Results - last 24 hr 05/07/20 05/07/20 05/08/20 Range/Units 02:25 15:38 06:15 WBC 6.29 (4.0-11.0) K/uL RBC 3.80 L (4.30-5.90) M/uL Hgb 11.4 L (12.0-16.0) g/dL Hct 34.7 L (36.0-46.0) % MCV 91.3 (80.0-98.0) fL MCH 30.0 (27.0-32.0) pg MCHC 32.9 (31.0-37.0) g/dL RDW Std Deviation 46.0 (28.0-62.0) fl RDW Coeff of Jason 14 (11.0-15.0) % Plt Count 254 (150-400) K/uL MPV 9.70 (7.40-12.00) fL Neut % (Auto) 72.8 (48.0-80.0) % Lymph % (Auto) 18.9 (16.0-40.0) % Hendricks % (Auto) 8.1 (0.0-15.0) % Eos % (Auto) 0.0 (0.0-7.0) % Baso % (Auto) 0.2 (0.0-1.5) % Neut # (Auto) 4.6 (1.4-5.7) K/uL Lymph # (Auto) 1.2 (0.6-2.4) K/uL Hendricks # (Auto) 0.5 (0.0-0.8) K/uL Eos # (Auto) 0.0 (0.0-0.7) K/uL Baso # (Auto) 0.0 (0.0-0.1) K/uL Nucleated RBC % 0.0 /100WBC Nucleated RBCs # 0 K/uL Sodium 141 (136-145) mmol/L Potassium 4.0 (3.5-5.1) mmol/L Chloride 105 (98-107) mmol/L Carbon Dioxide 25.5 (21.0-32.0) mmol/L BUN 10 (7.0-18.0) mg/dL Creatinine 0.9 (0.6-1.0) mg/dL Est Cr Clr Drug Dosing 52.93 mL/min Estimated GFR (MDRD) > 60.0 ml/min Glucose 160 H (74-106) mg/dL Calcium 8.4 L (8.5-10.1) mg/dL Total Bilirubin (0.2-1.0) mg/dL AST (15-37) IU/L ALT (14-63) IU/L Alkaline Phosphatase (46-116) U/L Total Protein (6.4-8.2) g/dL Albumin (3.4-5.0) g/dL Globulin (2.6-4.0) g/dL Albumin/Globulin Ratio (0.9-1.6) Procalcitonin 0.33 H (<0.10) ng/mL 05/08/20 Range/Units 06:15 WBC (4.0-11.0) K/uL RBC (4.30-5.90) M/uL Hgb (12.0-16.0) g/dL Hct (36.0-46.0) % MCV (80.0-98.0) fL MCH (27.0-32.0) pg MCHC (31.0-37.0) g/dL RDW Std Deviation (28.0-62.0) fl RDW Coeff of Jason (11.0-15.0) % Plt Count (150-400) K/uL MPV (7.40-12.00) fL Neut % (Auto) (48.0-80.0) % Lymph % (Auto) (16.0-40.0) % Hendricks % (Auto) (0.0-15.0) % Eos % (Auto) (0.0-7.0) % Baso % (Auto) (0.0-1.5) % Neut # (Auto) (1.4-5.7) K/uL Lymph # (Auto) (0.6-2.4) K/uL Hendricks # (Auto) (0.0-0.8) K/uL Eos # (Auto) (0.0-0.7) K/uL Baso # (Auto) (0.0-0.1) K/uL Nucleated RBC % /100WBC Nucleated RBCs # K/uL Sodium 140 (136-145) mmol/L Potassium 3.8 (3.5-5.1) mmol/L Chloride 106 (98-107) mmol/L Carbon Dioxide 29.4 (21.0-32.0) mmol/L BUN 12 (7.0-18.0) mg/dL Creatinine 0.8 (0.6-1.0) mg/dL Est Cr Clr Drug Dosing 59.54 mL/min Estimated GFR (MDRD) > 60.0 ml/min Glucose 121 H (74-106) mg/dL Calcium 8.2 L (8.5-10.1) mg/dL Total Bilirubin 0.3 (0.2-1.0) mg/dL AST 21 (15-37) IU/L ALT 20 (14-63) IU/L Alkaline Phosphatase 51 (46-116) U/L Total Protein 6.0 L (6.4-8.2) g/dL Albumin 2.1 L (3.4-5.0) g/dL Globulin 3.9 (2.6-4.0) g/dL Albumin/Globulin Ratio 0.5 L (0.9-1.6) Procalcitonin (<0.10) ng/mL Med Orders - Current: Current Medications Acetaminophen (Tylenol) 650 mg PO Q4H PRN PRN Reason: Pain Last Admin: 05/07/20 16:25 Dose: 650 mg Documented by: Albuterol/Ipratropium (Combivent Respimat) 0 gm INH Q4H PRN PRN Reason: Dyspnea Benzonatate (Tessalon Perles) 100 mg PO TID PRN PRN Reason: Cough Last Admin: 05/07/20 16:25 Dose: 100 mg Documented by: Dexamethasone (Dexamethasone) 6 mg PO DAILY [facility] Last Admin: 05/08/20 08:47 Dose: 6 mg Documented by: Enoxaparin Sodium (Lovenox) 40 mg SUBCUT DAILY [facility] Last Admin: 05/08/20 08:48 Dose: 40 mg Documented by: Remdesivir 100 mg/ Sodium (Chloride) 100 mls @ 100 mls/hr IV Q24H [facility] Stop: 05/11/20 10:59 Morphine Sulfate (Morphine) 2 mg IVPUSH Q3H PRN PRN Reason: Pain Last Admin: 05/07/20 06:26 Dose: 2 mg Documented by: Ondansetron HCl (Zofran) 4 mg IVPUSH Q4H PRN PRN Reason: Nausea/Vomiting Last Admin: 05/08/20 01:08 Dose: 4 mg Documented by: Sodium Chloride (Saline Flush) 10 ml FLUSH ASDIRECTED PRN PRN Reason: Keep Vein Open Last Admin: 05/07/20 04:05 Dose: 10 ml Documented by: Sodium Chloride (Saline Flush) 2.5 ml FLUSH ASDIRECTED PRN PRN Reason: Keep Vein Open Discontinued Medications Albuterol (Ventolin Hfa) 4 gm INH ONETIME ONE Stop: 05/07/20 02:28 Last Admin: 05/07/20 02:38 Dose: 4 inh Documented by: Dexamethasone (Decadron) 6 mg IVPUSH ONETIME ONE Stop: 05/07/20 04:33 Last Admin: 05/07/20 05:11 Dose: 6 mg Documented by: Enoxaparin Sodium (Lovenox) 40 mg SUBCUT Q12HR [facility] Last Admin: 05/07/20 10:13 Dose: 40 mg Documented by: Potassium Chloride 40 meq/ (Premix) 100 mls @ 25 mls/hr IV ONETIME ONE Stop: 05/07/20 07:59 Last Admin: 05/07/20 04:13 Dose: 25 mls/hr Documented by: Lactated Ringer's (Ringers, Lactated) 1,000 mls @ 125 mls/hr IV .BOLUS ONE Stop: 05/07/20 12:05 Last Admin: 05/07/20 04:14 Dose: 125 mls/hr Documented by: Remdesivir 100 mg/ Sodium (Chloride) 100 mls @ 100 mls/hr IV Q24H [facility] Stop: 05/11/20 10:29 Last Admin: 05/08/20 08:53 Dose: 100 mls/hr Documented by: Remdesivir 200 mg/ Sodium (Chloride) 250 mls @ 250 mls/hr IV ONETIME ONE Stop: 05/07/20 11:29 Last Admin: 05/07/20 10:25 Dose: 250 mls/hr Documented by: Remdesivir 100 mg/ Sodium (Chloride) 100 mls @ 100 mls/hr IV Q24H [facility] Stop: 05/11/20 10:29 Last Admin: 05/08/20 09:55 Dose: Not Given Documented by: Influenza Virus Vaccine (Pharmacy To Dose - Influenza Vaccine) 1 each IM ONETIME ONE Stop: 05/07/20 06:02 Influenza Virus Vaccine (Afluria Quad 2020-21 (3yr Up)) 60 mcg IM .ONCE ONE Stop: 05/07/20 10:01 Last Admin: 05/07/20 19:38 Dose: Not Given Documented by: Iopamidol (Isovue Multipack-370 (76%)) 100 ml IVPUSH ONETIME STA Stop: 05/07/20 03:48 Last Admin: 05/07/20 03:48 Dose: 100 ml Documented by: Morphine Sulfate (Morphine) 2 mg IVPUSH ONETIME ONE Stop: 05/07/20 02:25 Last Admin: 05/07/20 02:36 Dose: Not Given Documented by: Morphine Sulfate (Morphine) Confirm Administered Dose 2 mg .ROUTE .STK-MED ONE Stop: 05/07/20 02:33 Last Admin: 05/07/20 02:36 Dose: Not Given Documented by: Morphine Sulfate (Morphine) 2 mg IVPUSH ONETIME ONE Stop: 05/07/20 02:36 Last Admin: 05/07/20 02:49 Dose: 2 mg Documented by: Ondansetron HCl (Zofran) 4 mg IVPUSH ONETIME ONE Stop: 05/07/20 02:25 Last Admin: 05/07/20 02:37 Dose: 4 mg Documented by: Potassium Chloride (Klor-Con M20) 40 meq PO ONETIME ONE Stop: 05/07/20 07:57 Last Admin: 05/07/20 10:18 Dose: Not Given Documented by: - Exam General: Alert, Oriented Lungs: Clear to Auscultation, Normal Respiratory Effort Cardiovascular: Regular Rate, Regular Rhythm GI/Abdominal Exam: Normal Bowel Sounds, Soft, Non-Tender Extremities: No Pedal Edema Psy/Mental Status: Alert Sepsis Event Note - Evaluation Sepsis Screening Result: No Definite Risk - Focused Exam Vital Signs: Vital Signs Temp Pulse Resp BP Pulse Ox 05/08/20 11:54 97.7 F 62 18 91/47 L 92 L 05/08/20 10:07 91 L 05/08/20 08:40 97.5 F 54 L 18 95/33 L 91 L 05/08/20 03:00 96.0 F L 42 L 18 92/42 L 90 L - Problem List Review Problem List Initiated/Reviewed/Updated: Yes - My Orders Last 24 Hours: My Active Orders 05/07/20 14:57 Benzonatate [Tessalon Perles] 100 mg PO TID PRN 05/07/20 14:58 Acetaminophen [TylenoL] 650 mg PO Q4H PRN 05/08/20 09:00 Enoxaparin [Lovenox] 40 mg SUBCUT DAILY 05/08/20 09:01 Code Status [Resuscitation Status] Routine 05/09/20 10:00 Remdesivir 100 mg Sodium Chloride 0.9% [Normal Saline] 100 ml IV Q24H - Plan Plan:: COVID-19 infectionremdesivir, dexamethasone, Lovenox 40 mg daily, Combivent, incentive spirometry, prone positioning. Patient currently on room air. Will monitor overnight with possible discharge tomorrow based on patient's subjective and physical exam findings in the morning. Hypokalemiaresolved, K+ 3.8.
[2020-05-09 06:03] LABS: BLOOD UREA NITROGEN,BUN 17 mg/dL (7.0-18.0); CARBON DIOXIDE,CO2 29.6 mmol/L (21.0-32.0); CHLORIDE,CL 105 mmol/L (98-107); GLUCOSE RANDOM 127 mg/dL (74-106); POTASSIUM,K 3.7 mmol/L (3.5-5.1); SODIUM,NA 140 mmol/L (136-145)
[2020-05-09] MEDS: Enoxaparin 40 MG/0.4 ML Syringe SUBCUT SCH (08:00)
[2020-05-09] MEDS: Dexamethasone 4 MG Tab PO SCH (08:10)
[2020-05-09] MEDS: REMDESIVIR 100 MG in Sodium Chloride 0.9% 100 ML IV SCH (09:32)
--- NOTE | 2020-05-09 14:04 | PCM.PN ---
- General Info Date of Service: 05/09/20 Subjective Update: Patient states mild shortness of breath and chest pain which is increased with ambulation. Patient also states nausea and chills. Patient denies fever, vomiting, abdominal pain. - Review of Systems General: Reports: Chills. Denies: Fever Pulmonary: Reports: Shortness of Breath. Denies: Cough Cardiovascular: Reports: Chest Pain, Dyspnea on Exertion. Denies: Palpitations Gastrointestinal: Reports: Nausea. Denies: Abdominal Pain, Diarrhea, Vomiting Neurological: Denies: Confusion, Dizziness, Headache - Patient Data Vitals - Most Recent: Last Vital Signs Temp 97.6 F 05/09/20 11:16 Pulse 64 05/09/20 11:16 Resp 18 05/09/20 11:16 BP 92/50 L 05/09/20 11:16 Pulse Ox 92 L 05/09/20 11:16 Weight - Most Recent: 190 lb 1.6 oz I&O - Last 24 Hours: Intake & Output 05/08/20 05/09/20 05/09/20 22:59 06:59 14:59 Intake Total 650 400 100 Output Total 800 650 Balance -150 -250 100 Lab Results Last 24 Hours: Laboratory Results - last 24 hr 05/09/20 05/09/20 Range/Units 05:07 05:07 WBC 7.09 (4.0-11.0) K/uL RBC 3.75 L (4.30-5.90) M/uL Hgb 11.3 L (12.0-16.0) g/dL Hct 34.6 L (36.0-46.0) % MCV 92.3 (80.0-98.0) fL MCH 30.1 (27.0-32.0) pg MCHC 32.7 (31.0-37.0) g/dL RDW Std Deviation 47.1 (28.0-62.0) fl RDW Coeff of Jason 14 (11.0-15.0) % Plt Count 290 (150-400) K/uL MPV 9.50 (7.40-12.00) fL Neut % (Auto) 75.8 (48.0-80.0) % Lymph % (Auto) 16.9 (16.0-40.0) % [place] % (Auto) 7.3 (0.0-15.0) % Eos % (Auto) 0.0 (0.0-7.0) % Baso % (Auto) 0.0 (0.0-1.5) % Neut # (Auto) 5.4 (1.4-5.7) K/uL Lymph # (Auto) 1.2 (0.6-2.4) K/uL [place] # (Auto) 0.5 (0.0-0.8) K/uL Eos # (Auto) 0.0 (0.0-0.7) K/uL Baso # (Auto) 0.0 (0.0-0.1) K/uL Nucleated RBC % 0.0 /100WBC Nucleated RBCs # 0 K/uL Sodium 140 (136-145) mmol/L Potassium 3.7 (3.5-5.1) mmol/L Chloride 105 (98-107) mmol/L Carbon Dioxide 29.6 (21.0-32.0) mmol/L BUN 17 (7.0-18.0) mg/dL Creatinine 0.8 (0.6-1.0) mg/dL Est Cr Clr Drug Dosing 59.54 mL/min Estimated GFR (MDRD) > 60.0 ml/min Glucose 127 H (74-106) mg/dL Calcium 8.1 L (8.5-10.1) mg/dL Total Bilirubin 0.2 (0.2-1.0) mg/dL AST 24 (15-37) IU/L ALT 24 (14-63) IU/L Alkaline Phosphatase 49 (46-116) U/L Total Protein 5.7 L (6.4-8.2) g/dL Albumin 2.1 L (3.4-5.0) g/dL Globulin 3.6 (2.6-4.0) g/dL Albumin/Globulin Ratio 0.6 L (0.9-1.6) Med Orders - Current: Current Medications Acetaminophen (Tylenol) 650 mg PO Q4H PRN PRN Reason: Pain Last Admin: 05/07/20 16:25 Dose: 650 mg Documented by: Albuterol/Ipratropium (Combivent Respimat) 0 gm INH Q4H PRN PRN Reason: Dyspnea Benzonatate (Tessalon Perles) 100 mg PO TID PRN PRN Reason: Cough Last Admin: 05/07/20 16:25 Dose: 100 mg Documented by: Dexamethasone (Dexamethasone) 6 mg PO DAILY [facility] Last Admin: 05/09/20 08:10 Dose: 6 mg Documented by: Enoxaparin Sodium (Lovenox) 40 mg SUBCUT DAILY [facility] Last Admin: 05/09/20 08:00 Dose: 40 mg Documented by: Remdesivir 100 mg/ Sodium (Chloride) 100 mls @ 100 mls/hr IV Q24H [facility] Stop: 05/11/20 10:59 Last Admin: 05/09/20 09:32 Dose: 100 mls/hr Documented by: Morphine Sulfate (Morphine) 2 mg IVPUSH Q3H PRN PRN Reason: Pain Last Admin: 05/07/20 06:26 Dose: 2 mg Documented by: Ondansetron HCl (Zofran) 4 mg IVPUSH Q4H PRN PRN Reason: Nausea/Vomiting Last Admin: 05/08/20 01:08 Dose: 4 mg Documented by: Sodium Chloride (Saline Flush) 10 ml FLUSH ASDIRECTED PRN PRN Reason: Keep Vein Open Last Admin: 05/07/20 04:05 Dose: 10 ml Documented by: Sodium Chloride (Saline Flush) 2.5 ml FLUSH ASDIRECTED PRN PRN Reason: Keep Vein Open Discontinued Medications Albuterol (Ventolin Hfa) 4 gm INH ONETIME ONE Stop: 05/07/20 02:28 Last Admin: 05/07/20 02:38 Dose: 4 inh Documented by: Dexamethasone (Decadron) 6 mg IVPUSH ONETIME ONE Stop: 05/07/20 04:33 Last Admin: 05/07/20 05:11 Dose: 6 mg Documented by: Enoxaparin Sodium (Lovenox) 40 mg SUBCUT Q12HR [facility] Last Admin: 05/07/20 10:13 Dose: 40 mg Documented by: Potassium Chloride 40 meq/ (Premix) 100 mls @ 25 mls/hr IV ONETIME ONE Stop: 05/07/20 07:59 Last Admin: 05/07/20 04:13 Dose: 25 mls/hr Documented by: Lactated Ringer's (Ringers, Lactated) 1,000 mls @ 125 mls/hr IV .BOLUS ONE Stop: 05/07/20 12:05 Last Admin: 05/07/20 04:14 Dose: 125 mls/hr Documented by: Remdesivir 100 mg/ Sodium (Chloride) 100 mls @ 100 mls/hr IV Q24H [facility] Stop: 05/11/20 10:29 Last Admin: 05/08/20 08:53 Dose: 100 mls/hr Documented by: Remdesivir 200 mg/ Sodium (Chloride) 250 mls @ 250 mls/hr IV ONETIME ONE Stop: 05/07/20 11:29 Last Admin: 05/07/20 10:25 Dose: 250 mls/hr Documented by: Remdesivir 100 mg/ Sodium (Chloride) 100 mls @ 100 mls/hr IV Q24H [facility] Stop: 05/11/20 10:29 Last Admin: 05/08/20 09:55 Dose: Not Given Documented by: Influenza Virus Vaccine (Pharmacy To Dose - Influenza Vaccine) 1 each IM ONETIME ONE Stop: 05/07/20 06:02 Influenza Virus Vaccine (Afluria Quad 2020-21 (3yr Up)) 60 mcg IM .ONCE ONE Stop: 05/07/20 10:01 Last Admin: 05/07/20 19:38 Dose: Not Given Documented by: Iopamidol (Isovue Multipack-370 (76%)) 100 ml IVPUSH ONETIME STA Stop: 05/07/20 03:48 Last Admin: 05/07/20 03:48 Dose: 100 ml Documented by: Morphine Sulfate (Morphine) 2 mg IVPUSH ONETIME ONE Stop: 05/07/20 02:25 Last Admin: 05/07/20 02:36 Dose: Not Given Documented by: Morphine Sulfate (Morphine) Confirm Administered Dose 2 mg .ROUTE .STK-MED ONE Stop: 05/07/20 02:33 Last Admin: 05/07/20 02:36 Dose: Not Given Documented by: Morphine Sulfate (Morphine) 2 mg IVPUSH ONETIME ONE Stop: 05/07/20 02:36 Last Admin: 05/07/20 02:49 Dose: 2 mg Documented by: Ondansetron HCl (Zofran) 4 mg IVPUSH ONETIME ONE Stop: 05/07/20 02:25 Last Admin: 05/07/20 02:37 Dose: 4 mg Documented by: Potassium Chloride (Klor-Con M20) 40 meq PO ONETIME ONE Stop: 05/07/20 07:57 Last Admin: 05/07/20 10:18 Dose: Not Given Documented by: - Exam Quality Assessment: Supplemental Oxygen (1L N/C) General: Alert, Oriented Lungs: Normal Respiratory Effort Cardiovascular: Regular Rate, Regular Rhythm GI/Abdominal Exam: Normal Bowel Sounds, Soft, Non-Tender Extremities: No Pedal Edema Psy/Mental Status: Alert Sepsis Event Note - Evaluation Sepsis Screening Result: No Definite Risk - Focused Exam Vital Signs: Vital Signs Temp Pulse Resp BP Pulse Ox 05/09/20 11:16 97.6 F 64 18 92/50 L 92 L 05/09/20 07:52 97.7 F 53 L 18 107/78 92 L 05/09/20 04:00 96.2 F L 45 L 18 91/60 90 L - Problem List Review Problem List Initiated/Reviewed/Updated: Yes - My Orders Last 24 Hours: My Active Orders 05/09/20 10:00 Remdesivir 100 mg Sodium Chloride 0.9% [Normal Saline] 100 ml IV Q24H - Plan Plan:: COVID-19 infectionremdesivir, dexamethasone, Lovenox 40 mg daily, Combivent, incentive spirometry, prone positioning. Patient currently on 1L N/C oxygen, Will wean to RA. Patient was still complaining of mild shortness of breath, chest pain this morning with ambulation. We will plan for possible discharge tomorrow pending subjective and physical exam findings in the morning.
[2020-05-10 06:38] LABS: BLOOD UREA NITROGEN,BUN 17 mg/dL (7.0-18.0); CARBON DIOXIDE,CO2 27.3 mmol/L (21.0-32.0); CHLORIDE,CL 106 mmol/L (98-107); GLUCOSE RANDOM 114 mg/dL (74-106); POTASSIUM,K 3.8 mmol/L (3.5-5.1); SODIUM,NA 142 mmol/L (136-145)
[2020-05-10] MEDS: Dexamethasone 4 MG Tab PO SCH (09:05)
[2020-05-10] MEDS: Enoxaparin 40 MG/0.4 ML Syringe SUBCUT SCH (09:07)
[2020-05-10] MEDS: REMDESIVIR 100 MG in Sodium Chloride 0.9% 100 ML IV SCH (11:01)
--- NOTE | 2020-05-10 14:37 | PCM.PN ---
<Justin Grubbs - Last Filed: 05/10/20 14:38> - General Info Date of Service: 05/10/20 Subjective Update: Patient still states that she is having some shortness of breath. Patient still requiring 1 L of oxygen at rest. Patient denies fever, chills, nausea, vomiting, abdominal pain. - Review of Systems General: Denies: Fever Pulmonary: Reports: Shortness of Breath. Denies: Cough Cardiovascular: Denies: Chest Pain Gastrointestinal: Denies: Abdominal Pain, Diarrhea, Vomiting Musculoskeletal: Denies: Back Pain Neurological: Denies: Confusion, Dizziness - Patient Data Vitals - Most Recent: Last Vital Signs Temp 97.3 F 05/10/20 11:07 Pulse 53 L 05/10/20 11:07 Resp 18 05/10/20 11:07 BP 92/50 L 05/10/20 13:31 Pulse Ox 93 L 05/10/20 11:07 Weight - Most Recent: 86.228 kg I&O - Last 24 Hours: Intake & Output 05/09/20 05/10/20 05/10/20 22:59 06:59 14:59 Intake Total 680 850 Output Total 650 1000 Balance 30 -150 Lab Results Last 24 Hours: Laboratory Results - last 24 hr 05/10/20 05/10/20 Range/Units 05:30 05:30 WBC 7.07 (4.0-11.0) K/uL RBC 3.89 L (4.30-5.90) M/uL Hgb 11.5 L (12.0-16.0) g/dL Hct 35.8 L (36.0-46.0) % MCV 92.0 (80.0-98.0) fL MCH 29.6 (27.0-32.0) pg MCHC 32.1 (31.0-37.0) g/dL RDW Std Deviation 46.1 (28.0-62.0) fl RDW Coeff of Jason 14 (11.0-15.0) % Plt Count 332 (150-400) K/uL MPV 9.80 (7.40-12.00) fL Neut % (Auto) 68.4 (48.0-80.0) % Lymph % (Auto) 20.2 (16.0-40.0) % [place] % (Auto) 11.3 (0.0-15.0) % Eos % (Auto) 0.0 (0.0-7.0) % Baso % (Auto) 0.1 (0.0-1.5) % Neut # (Auto) 4.8 (1.4-5.7) K/uL Lymph # (Auto) 1.4 (0.6-2.4) K/uL [place] # (Auto) 0.8 (0.0-0.8) K/uL Eos # (Auto) 0.0 (0.0-0.7) K/uL Baso # (Auto) 0.0 (0.0-0.1) K/uL Nucleated RBC % 0.0 /100WBC Nucleated RBCs # 0 K/uL Sodium 142 (136-145) mmol/L Potassium 3.8 (3.5-5.1) mmol/L Chloride 106 (98-107) mmol/L Carbon Dioxide 27.3 (21.0-32.0) mmol/L BUN 17 (7.0-18.0) mg/dL Creatinine 0.8 (0.6-1.0) mg/dL Est Cr Clr Drug Dosing 59.54 mL/min Estimated GFR (MDRD) > 60.0 ml/min Glucose 114 H (74-106) mg/dL Calcium 8.0 L (8.5-10.1) mg/dL Total Bilirubin 0.3 (0.2-1.0) mg/dL AST 50 H (15-37) IU/L ALT 57 (14-63) IU/L Alkaline Phosphatase 56 (46-116) U/L Total Protein 5.5 L (6.4-8.2) g/dL Albumin 2.1 L (3.4-5.0) g/dL Globulin 3.4 (2.6-4.0) g/dL Albumin/Globulin Ratio 0.6 L (0.9-1.6) Med Orders - Current: Current Medications Acetaminophen (Tylenol) 650 mg PO Q4H PRN PRN Reason: Pain Last Admin: 05/07/20 16:25 Dose: 650 mg Documented by: Albuterol/Ipratropium (Combivent Respimat) 0 gm INH Q4H PRN PRN Reason: Dyspnea Benzonatate (Tessalon Perles) 100 mg PO TID PRN PRN Reason: Cough Last Admin: 05/07/20 16:25 Dose: 100 mg Documented by: Dexamethasone (Dexamethasone) 6 mg PO DAILY [facility] Last Admin: 05/10/20 09:05 Dose: 6 mg Documented by: Enoxaparin Sodium (Lovenox) 40 mg SUBCUT DAILY [facility] Last Admin: 05/10/20 09:07 Dose: 40 mg Documented by: Remdesivir 100 mg/ Sodium (Chloride) 100 mls @ 100 mls/hr IV Q24H [facility] Stop: 05/11/20 10:59 Last Admin: 05/10/20 11:01 Dose: 100 mls/hr Documented by: Morphine Sulfate (Morphine) 2 mg IVPUSH Q3H PRN PRN Reason: Pain Last Admin: 05/07/20 06:26 Dose: 2 mg Documented by: Ondansetron HCl (Zofran) 4 mg IVPUSH Q4H PRN PRN Reason: Nausea/Vomiting Last Admin: 05/08/20 01:08 Dose: 4 mg Documented by: Sodium Chloride (Saline Flush) 10 ml FLUSH ASDIRECTED PRN PRN Reason: Keep Vein Open Last Admin: 05/07/20 04:05 Dose: 10 ml Documented by: Sodium Chloride (Saline Flush) 2.5 ml FLUSH ASDIRECTED PRN PRN Reason: Keep Vein Open Discontinued Medications Albuterol (Ventolin Hfa) 4 gm INH ONETIME ONE Stop: 05/07/20 02:28 Last Admin: 05/07/20 02:38 Dose: 4 inh Documented by: Dexamethasone (Decadron) 6 mg IVPUSH ONETIME ONE Stop: 05/07/20 04:33 Last Admin: 05/07/20 05:11 Dose: 6 mg Documented by: Enoxaparin Sodium (Lovenox) 40 mg SUBCUT Q12HR [facility] Last Admin: 05/07/20 10:13 Dose: 40 mg Documented by: Potassium Chloride 40 meq/ (Premix) 100 mls @ 25 mls/hr IV ONETIME ONE Stop: 05/07/20 07:59 Last Admin: 05/07/20 04:13 Dose: 25 mls/hr Documented by: Lactated Ringer's (Ringers, Lactated) 1,000 mls @ 125 mls/hr IV .BOLUS ONE Stop: 05/07/20 12:05 Last Admin: 05/07/20 04:14 Dose: 125 mls/hr Documented by: Remdesivir 100 mg/ Sodium (Chloride) 100 mls @ 100 mls/hr IV Q24H [facility] Stop: 05/11/20 10:29 Last Admin: 05/08/20 08:53 Dose: 100 mls/hr Documented by: Remdesivir 200 mg/ Sodium (Chloride) 250 mls @ 250 mls/hr IV ONETIME ONE Stop: 05/07/20 11:29 Last Admin: 05/07/20 10:25 Dose: 250 mls/hr Documented by: Remdesivir 100 mg/ Sodium (Chloride) 100 mls @ 100 mls/hr IV Q24H [facility] Stop: 05/11/20 10:29 Last Admin: 05/08/20 09:55 Dose: Not Given Documented by: Influenza Virus Vaccine (Pharmacy To Dose - Influenza Vaccine) 1 each IM ONETIME ONE Stop: 05/07/20 06:02 Influenza Virus Vaccine (Afluria Quad 2020-21 (3yr Up)) 60 mcg IM .ONCE ONE Stop: 05/07/20 10:01 Last Admin: 05/07/20 19:38 Dose: Not Given Documented by: Iopamidol (Isovue Multipack-370 (76%)) 100 ml IVPUSH ONETIME [facility] Stop: 05/07/20 03:48 Last Admin: 05/07/20 03:48 Dose: 100 ml Documented by: Morphine Sulfate (Morphine) 2 mg IVPUSH ONETIME ONE Stop: 05/07/20 02:25 Last Admin: 05/07/20 02:36 Dose: Not Given Documented by: Morphine Sulfate (Morphine) Confirm Administered Dose 2 mg .ROUTE .STK-MED ONE Stop: 05/07/20 02:33 Last Admin: 05/07/20 02:36 Dose: Not Given Documented by: Morphine Sulfate (Morphine) 2 mg IVPUSH ONETIME ONE Stop: 05/07/20 02:36 Last Admin: 05/07/20 02:49 Dose: 2 mg Documented by: Ondansetron HCl (Zofran) 4 mg IVPUSH ONETIME ONE Stop: 05/07/20 02:25 Last Admin: 05/07/20 02:37 Dose: 4 mg Documented by: Potassium Chloride (Klor-Con M20) 40 meq PO ONETIME ONE Stop: 05/07/20 07:57 Last Admin: 05/07/20 10:18 Dose: Not Given Documented by: - Exam General: Alert, Oriented Lungs: Clear to Auscultation, Normal Respiratory Effort Cardiovascular: Regular Rate, Regular Rhythm GI/Abdominal Exam: Normal Bowel Sounds, Soft, Non-Tender Extremities: No Pedal Edema Sepsis Event Note - Evaluation Sepsis Screening Result: No Definite Risk - Focused Exam Vital Signs: Vital Signs Temp Pulse Resp BP Pulse Ox 05/10/20 13:31 92/50 L 05/10/20 11:47 84/50 L 05/10/20 11:07 97.3 F 53 L 18 93 L 05/10/20 10:53 93 L 05/10/20 10:52 88 L 05/10/20 08:57 97.3 F 62 18 100/53 L 93 L 05/10/20 04:00 97.1 F 53 L 17 112/58 L 92 L - Problem List Review Problem List Initiated/Reviewed/Updated: Yes - Plan Plan:: COVID-19 infectionremdesivir, dexamethasone, Lovenox 40 mg daily, Combivent, incentive spirometry, prone positioning. Patient currently on 1L N/C oxygen, Will wean to RA. We will plan for possible discharge tomorrow pending subjective and physical exam findings in the morning. <Suzanne Fortune - Last Filed: 05/11/20 18:29> - Patient Data Vitals - Most Recent: Last Vital Signs Temp 36.7 C 05/11/20 11:22 Pulse 68 05/11/20 11:22 Resp 18 05/11/20 11:22 BP 103/52 L 05/11/20 11:22 Pulse Ox 93 L 05/11/20 13:13 I&O - Last 24 Hours: Intake & Output 05/11/20 05/11/20 05/11/20 06:59 14:59 22:59 Intake Total 2448 821 1721 Output Total 1700 1550 Balance -500 100 -150 Lab Results Last 24 Hours: Laboratory Results - last 24 hr 05/11/20 05/11/20 Range/Units 05:38 05:38 WBC 7.99 (4.0-11.0) K/uL RBC 4.07 L (4.30-5.90) M/uL Hgb 12.2 (12.0-16.0) g/dL Hct 37.7 (36.0-46.0) % MCV 92.6 (80.0-98.0) fL MCH 30.0 (27.0-32.0) pg MCHC 32.4 (31.0-37.0) g/dL RDW Std Deviation 46.4 (28.0-62.0) fl RDW Coeff of Jason 14 (11.0-15.0) % Plt Count 383 (150-400) K/uL MPV 9.80 (7.40-12.00) fL Neut % (Auto) 68.9 (48.0-80.0) % Lymph % (Auto) 20.5 (16.0-40.0) % [place] % (Auto) 10.4 (0.0-15.0) % Eos % (Auto) 0.1 (0.0-7.0) % Baso % (Auto) 0.1 (0.0-1.5) % Neut # (Auto) 5.5 (1.4-5.7) K/uL Lymph # (Auto) 1.6 (0.6-2.4) K/uL [place] # (Auto) 0.8 (0.0-0.8) K/uL Eos # (Auto) 0.0 (0.0-0.7) K/uL Baso # (Auto) 0.0 (0.0-0.1) K/uL Nucleated RBC % 0.0 /100WBC Nucleated RBCs # 0 K/uL Sodium 142 (136-145) mmol/L Potassium 3.6 (3.5-5.1) mmol/L Chloride 107 (98-107) mmol/L Carbon Dioxide 29.8 (21.0-32.0) mmol/L BUN 16 (7.0-18.0) mg/dL Creatinine 0.8 (0.6-1.0) mg/dL Est Cr Clr Drug Dosing 59.54 mL/min Estimated GFR (MDRD) > 60.0 ml/min Glucose 115 H (74-106) mg/dL Calcium 8.0 L (8.5-10.1) mg/dL Total Bilirubin 0.3 (0.2-1.0) mg/dL AST 30 (15-37) IU/L ALT 64 H (14-63) IU/L Alkaline Phosphatase 59 (46-116) U/L Total Protein 5.5 L (6.4-8.2) g/dL Albumin 2.1 L (3.4-5.0) g/dL Globulin 3.4 (2.6-4.0) g/dL Albumin/Globulin Ratio 0.6 L (0.9-1.6) Med Orders - Current: Current Medications Discontinued Medications Acetaminophen (Tylenol) 650 mg PO Q4H PRN PRN Reason: Pain Last Admin: 05/07/20 16:25 Dose: 650 mg Documented by: Albuterol (Ventolin Hfa) 4 gm INH ONETIME ONE Stop: 05/07/20 02:28 Last Admin: 05/07/20 02:38 Dose: 4 inh Documented by: Albuterol/Ipratropium (Combivent Respimat) 0 gm INH Q4H PRN PRN Reason: Dyspnea Benzonatate (Tessalon Perles) 100 mg PO TID PRN PRN Reason: Cough Last Admin: 05/07/20 16:25 Dose: 100 mg Documented by: Dexamethasone (Decadron) 6 mg IVPUSH ONETIME ONE Stop: 05/07/20 04:33 Last Admin: 05/07/20 05:11 Dose: 6 mg Documented by: Dexamethasone (Dexamethasone) 6 mg PO DAILY [facility] Last Admin: 05/11/20 08:36 Dose: 6 mg Documented by: Enoxaparin Sodium (Lovenox) 40 mg SUBCUT Q12HR [facility] Last Admin: 05/07/20 10:13 Dose: 40 mg Documented by: Enoxaparin Sodium (Lovenox) 40 mg SUBCUT DAILY [facility] Last Admin: 05/11/20 08:36 Dose: 40 mg Documented by: Potassium Chloride 40 meq/ (Premix) 100 mls @ 25 mls/hr IV ONETIME ONE Stop: 05/07/20 07:59 Last Admin: 05/07/20 04:13 Dose: 25 mls/hr Documented by: Lactated Ringer's (Ringers, Lactated) 1,000 mls @ 125 mls/hr IV .BOLUS ONE Stop: 05/07/20 12:05 Last Admin: 05/07/20 04:14 Dose: 125 mls/hr Documented by: Remdesivir 100 mg/ Sodium (Chloride) 100 mls @ 100 mls/hr IV Q24H [facility] Stop: 05/11/20 10:29 Last Admin: 05/08/20 08:53 Dose: 100 mls/hr Documented by: Remdesivir 200 mg/ Sodium (Chloride) 250 mls @ 250 mls/hr IV ONETIME ONE Stop: 05/07/20 11:29 Last Admin: 05/07/20 10:25 Dose: 250 mls/hr Documented by: Remdesivir 100 mg/ Sodium (Chloride) 100 mls @ 100 mls/hr IV Q24H [facility] Stop: 05/11/20 10:29 Last Admin: 05/08/20 09:55 Dose: Not Given Documented by: Remdesivir 100 mg/ Sodium (Chloride) 100 mls @ 100 mls/hr IV Q24H [facility] Stop: 05/11/20 10:59 Last Admin: 05/11/20 10:03 Dose: 100 mls/hr Documented by: Influenza Virus Vaccine (Pharmacy To Dose - Influenza Vaccine) 1 each IM ON ETIME ONE Stop: 05/07/20 06:02 Influenza Virus Vaccine (Afluria Quad 2020-21 (3yr Up)) 60 mcg IM .ONCE ONE Stop: 05/07/20 10:01 Last Admin: 05/07/20 19:38 Dose: Not Given Documented by: Iopamidol (Isovue Multipack-370 (76%)) 100 ml IVPUSH ONETIME STA Stop: 05/07/20 03:48 Last Admin: 05/07/20 03:48 Dose: 100 ml Documented by: Morphine Sulfate (Morphine) 2 mg IVPUSH ONETIME ONE Stop: 05/07/20 02:25 Last Admin: 05/07/20 02:36 Dose: Not Given Documented by: Morphine Sulfate (Morphine) Confirm Administered Dose 2 mg .ROUTE .STK-MED ONE Stop: 05/07/20 02:33 Last Admin: 05/07/20 02:36 Dose: Not Given Documented by: Morphine Sulfate (Morphine) 2 mg IVPUSH ONETIME ONE Stop: 05/07/20 02:36 Last Admin: 05/07/20 02:49 Dose: 2 mg Documented by: Morphine Sulfate (Morphine) 2 mg IVPUSH Q3H PRN PRN Reason: Pain Last Admin: 05/07/20 06:26 Dose: 2 mg Documented by: Ondansetron HCl (Zofran) 4 mg IVPUSH ONETIME ONE Stop: 05/07/20 02:25 Last Admin: 05/07/20 02:37 Dose: 4 mg Documented by: Ondansetron HCl (Zofran) 4 mg IVPUSH Q4H PRN PRN Reason: Nausea/Vomiting Last Admin: 05/08/20 01:08 Dose: 4 mg Documented by: Potassium Chloride (Klor-Con M20) 40 meq PO ONETIME ONE Stop: 05/07/20 07:57 Last Admin: 05/07/20 10:18 Dose: Not Given Documented by: Sodium Chloride (Saline Flush) 10 ml FLUSH ASDIRECTED PRN PRN Reason: Keep Vein Open Last Admin: 05/07/20 04:05 Dose: 10 ml Documented by: Sodium Chloride (Saline Flush) 2.5 ml FLUSH ASDIRECTED PRN PRN Reason: Keep Vein Open Sepsis Event Note - Focused Exam Vital Signs: Vital Signs Temp Pulse Resp BP Pulse Ox 05/11/20 13:13 93 L 05/11/20 11:22 36.7 C 68 18 103/52 L 92 L 05/11/20 07:00 36.6 C 58 L 18 117/55 L 91 L - Plan Plan:: I have seen and evaluated the patient and agree with the residents note unless specified in my note
[2020-05-11 06:43] LABS: BLOOD UREA NITROGEN,BUN 16 mg/dL (7.0-18.0); CARBON DIOXIDE,CO2 29.8 mmol/L (21.0-32.0); CHLORIDE,CL 107 mmol/L (98-107); GLUCOSE RANDOM 115 mg/dL (74-106); POTASSIUM,K 3.6 mmol/L (3.5-5.1); SODIUM,NA 142 mmol/L (136-145)
[2020-05-11] MEDS: Enoxaparin 40 MG/0.4 ML Syringe SUBCUT SCH (08:36)
[2020-05-11] MEDS: Dexamethasone 4 MG Tab PO SCH (08:36)
[2020-05-11] MEDS: REMDESIVIR 100 MG in Sodium Chloride 0.9% 100 ML IV SCH (10:03)
[2020-05-11 11:26] VITALS: BP 103/52; PULSE 68
--- NOTE | 2020-05-11 12:47 | PCM.DCSUM1 ---
Discharge Summary - Hospital Course Free Text/Narrative:: 4-year-old female admitted for COVID-19 infection. Patient states 2-week history of nonproductive cough, nausea, poor oral intake, diarrhea, chills, shortness of breath, generalized weakness. Patient presented to the emergency department due to severe shortness of breath and chest tightness that was progressing. Patient denies any respiratory past medical history, patient does not smoke, patient denies being in contact with any individuals were positive for COVID-19. On admission patient states chills and nausea. Patient denies abdominal pain, diarrhea, fever, headache. Patient states chest tightness and shortness of breath have improved slightly. D-dimer 0.64, CTA obtained no pulmonary embolism but groundless opacities bilaterally was noted, significant for COVID infection. Patient was also hypokalemic, K+ 3.1, 40 mEq given one time in the ED, patient was started on oxygen tokeep her sats above 92%, patient received remdesivir, dexamethasone, Combivent, Was encouraged to sleep proning and use IS. Eventually patient was weaned off oxygen and discharged home, recommenced to fu with her PCP upon dc. Diagnosis: Stroke: No - Discharge Data Discharge Date: 05/11/20 Discharge Disposition: Home, Self-Care 01 Condition: Fair - Referral to Home Health Primary Care Physician: PCP None - Patient Instructions Diet: Regular Diet as Tolerated Activity: As Tolerated Driving: May Drive Today Showering/Bathing: May Shower Notify Provider of: Fever, Increased Pain, Swelling and Redness, Drainage, Nausea and/or Vomiting - Discharge Plan *PRESCRIPTION DRUG MONITORING PROGRAM REVIEWED*: No *COPY OF PRESCRIPTION DRUG MONITORING REPORT IN PATIENT MARCOS: No Prescriptions/Med Rec: Dextromethorphan Polistirex [12-Hour Cough Relief] 30 mg PO Q8H PRN #1 [email or web address] PRN Reason: Cough Albuterol/Ipratropium [Combivent Respimat] 1 puff INH Q4H PRN #1 inhaler PRN Reason: Dyspnea dexAMETHasone [Dexamethasone] 6 mg PO DAILY #7 tablet Home Medications: Home Meds Albuterol/Ipratropium [Combivent Respimat] 1 puff INH Q4H PRN #1 inhaler 11/23 [Rx] Dextromethorphan Polistirex [12-Hour Cough Relief] 30 mg PO Q8H PRN #1 [email or web address] 05/11/20 [Rx] dexAMETHasone [Dexamethasone] 6 mg PO DAILY #7 tablet 05/11/20 [Rx] Patient Handouts: COVID-19 Frequently Asked Questions, COVID-19: How to Protect Yourself and Others - CDC, Albuterol; Ipratropium inhalation aerosol, Dexamethasone tablets Referrals: Mendy Gonzalez PA [Physician [employer]er] - 05/21/20 10:30 am - Discharge Summary/Plan Comment DC Time >30 min.: No - Patient Data Vitals - Most Recent: Last Vital Signs Temp 36.7 C 05/11/20 11:22 Pulse 68 05/11/20 11:22 Resp 18 05/11/20 11:22 BP 103/52 L 05/11/20 11:22 Pulse Ox 92 L 05/11/20 11:22 Weight - Most Recent: 86.228 kg I&O - Last 24 hours: Intake & Output 05/10/20 05/11/20 05/11/20 22:59 06:59 14:59 Intake Total 1050 1200 100 Output Total 350 1700 Balance 700 -500 100 Lab Results - Last 24 hrs: Laboratory Results - last 24 hr 05/11/20 05/11/20 Range/Units 05:38 05:38 WBC 7.99 (4.0-11.0) K/uL RBC 4.07 L (4.30-5.90) M/uL Hgb 12.2 (12.0-16.0) g/dL Hct 37.7 (36.0-46.0) % MCV 92.6 (80.0-98.0) fL MCH 30.0 (27.0-32.0) pg MCHC 32.4 (31.0-37.0) g/dL RDW Std Deviation 46.4 (28.0-62.0) fl RDW Coeff of Jason 14 (11.0-15.0) % Plt Count 383 (150-400) K/uL MPV 9.80 (7.40-12.00) fL Neut % (Auto) 68.9 (48.0-80.0) % Lymph % (Auto) 20.5 (16.0-40.0) % [place] % (Auto) 10.4 (0.0-15.0) % Eos % (Auto) 0.1 (0.0-7.0) % Baso % (Auto) 0.1 (0.0-1.5) % Neut # (Auto) 5.5 (1.4-5.7) K/uL Lymph # (Auto) 1.6 (0.6-2.4) K/uL [place] # (Auto) 0.8 (0.0-0.8) K/uL Eos # (Auto) 0.0 (0.0-0.7) K/uL Baso # (Auto) 0.0 (0.0-0.1) K/uL Nucleated RBC % 0.0 /100WBC Nucleated RBCs # 0 K/uL Sodium 142 (136-145) mmol/L Potassium 3.6 (3.5-5.1) mmol/L Chloride 107 (98-107) mmol/L Carbon Dioxide 29.8 (21.0-32.0) mmol/L BUN 16 (7.0-18.0) mg/dL Creatinine 0.8 (0.6-1.0) mg/dL Est Cr Clr Drug Dosing 59.54 mL/min Estimated GFR (MDRD) > 60.0 ml/min Glucose 115 H (74-106) mg/dL Calcium 8.0 L (8.5-10.1) mg/dL Total Bilirubin 0.3 (0.2-1.0) mg/dL AST 30 (15-37) IU/L ALT 64 H (14-63) IU/L Alkaline Phosphatase 59 (46-116) U/L Total Protein 5.5 L (6.4-8.2) g/dL Albumin 2.1 L (3.4-5.0) g/dL Globulin 3.4 (2.6-4.0) g/dL Albumin/Globulin Ratio 0.6 L (0.9-1.6) Med Orders - Current: Current Medications Acetaminophen (Tylenol) 650 mg PO Q4H PRN PRN Reason: Pain Last Admin: 05/07/20 16:25 Dose: 650 mg Documented by: Albuterol/Ipratropium (Combivent Respimat) 0 gm INH Q4H PRN PRN Reason: Dyspnea Benzonatate (Tessalon Perles) 100 mg PO TID PRN PRN Reason: Cough Last Admin: 05/07/20 16:25 Dose: 100 mg Documented by: Dexamethasone (Dexamethasone) 6 mg PO DAILY [facility] Last Admin: 05/11/20 08:36 Dose: 6 mg Documented by: Enoxaparin Sodium (Lovenox) 40 mg SUBCUT DAILY [facility] Last Admin: 05/11/20 08:36 Dose: 40 mg Documented by: Morphine Sulfate (Morphine) 2 mg IVPUSH Q3H PRN PRN Reason: Pain Last Admin: 05/07/20 06:26 Dose: 2 mg Documented by: Ondansetron HCl (Zofran) 4 mg IVPUSH Q4H PRN PRN Reason: Nausea/Vomiting Last Admin: 05/08/20 01:08 Dose: 4 mg Documented by: Sodium Chloride (Saline Flush) 10 ml FLUSH ASDIRECTED PRN PRN Reason: Keep Vein Open Last Admin: 05/07/20 04:05 Dose: 10 ml Documented by: Sodium Chloride (Saline Flush) 2.5 ml FLUSH ASDIRECTED PRN PRN Reason: Keep Vein Open Discontinued Medications Albuterol (Ventolin Hfa) 4 gm INH ONETIME ONE Stop: 05/07/20 02:28 Last Admin: 05/07/20 02:38 Dose: 4 inh Documented by: Dexamethasone (Decadron) 6 mg IVPUSH ONETIME ONE Stop: 05/07/20 04:33 Last Admin: 05/07/20 05:11 Dose: 6 mg Documented by: Enoxaparin Sodium (Lovenox) 40 mg SUBCUT Q12HR [facility] Last Admin: 05/07/20 10:13 Dose: 40 mg Documented by: Potassium Chloride 40 meq/ (Premix) 100 mls @ 25 mls/hr IV ONETIME ONE Stop: 05/07/20 07:59 Last Admin: 05/07/20 04:13 Dose: 25 mls/hr Documented by: Lactated Ringer's (Ringers, Lactated) 1,000 mls @ 125 mls/hr IV .BOLUS ONE Stop: 05/07/20 12:05 Last Admin: 05/07/20 04:14 Dose: 125 mls/hr Documented by: Remdesivir 100 mg/ Sodium (Chloride) 100 mls @ 100 mls/hr IV Q24H [facility] Stop: 05/11/20 10:29 Last Admin: 05/08/20 08:53 Dose: 100 mls/hr Documented by: Remdesivir 200 mg/ Sodium (Chloride) 250 mls @ 250 mls/hr IV ONETIME ONE Stop: 05/07/20 11:29 Last Admin: 05/07/20 10:25 Dose: 250 mls/hr Documented by: Remdesivir 100 mg/ Sodium (Chloride) 100 mls @ 100 mls/hr IV Q24H [facility] Stop: 05/11/20 10:29 Last Admin: 05/08/20 09:55 Dose: Not Given Documented by: Remdesivir 100 mg/ Sodium (Chloride) 100 mls @ 100 mls/hr IV Q24H [facility] Stop: 05/11/20 10:59 Last Admin: 05/11/20 10:03 Dose: 100 mls/hr Documented by: Influenza Virus Vaccine (Pharmacy To Dose - Influenza Vaccine) 1 each IM ONETIME ONE Stop: 05/07/20 06:02 Influenza Virus Vaccine (Afluria Quad 2020-21 (3yr Up)) 60 mcg IM .ONCE ONE Stop: 05/07/20 10:01 Last Admin: 05/07/20 19:38 Dose: Not Given Documented by: Iopamidol (Isovue Multipack-370 (76%)) 100 ml IVPUSH ONETIME STA Stop: 05/07/20 03:48 Last Admin: 05/07/20 03:48 Dose: 100 ml Documented by: Morphine Sulfate (Morphine) 2 mg IVPUSH ONETIME ONE Stop: 05/07/20 02:25 Last Admin: 05/07/20 02:36 Dose: Not Given Documented by: Morphine Sulfate (Morphine) Confirm Administered Dose 2 mg .ROUTE .STK-MED ONE Stop: 05/07/20 02:33 Last Admin: 05/07/20 02:36 Dose: Not Given Documented by: Morphine Sulfate (Morphine) 2 mg IVPUSH ONETIME ONE Stop: 05/07/20 02:36 Last Admin: 05/07/20 02:49 Dose: 2 mg Documented by: Ondansetron HCl (Zofran) 4 mg IVPUSH ONETIME ONE Stop: 05/07/20 02:25 Last Admin: 05/07/20 02:37 Dose: 4 mg Documented by: Potassium Chloride (Klor-Con M20) 40 meq PO ONETIME ONE Stop: 05/07/20 07:57 Last Admin: 05/07/20 10:18 Dose: Not Given Documented by:
== END 2020-05-11 15:45 | disposition home or self-care (01) | DRG 179 ==
LOC: MW.ED 02:09 → MW.MS 04:36
PROVIDERS: ADMIT Internal Medicine; ATTEND Internal Medicine
PROC: XW033E5 Introduction of Remdesivir Anti-infective into Peripheral Vein, Percutaneous Approach, New Technology Group 5 (ICD-10-PCS; principal; 2020-05-07)
DX: U07.1 COVID-19 (principal); E87.6 Hypokalemia; K21.9 Gastro-esophageal reflux disease without esophagitis; M19.90 Unspecified osteoarthritis, unspecified site; Z96.0 Presence of urogenital implants; Z96.659 Presence of unspecified artificial knee joint; E66.9 Obesity, unspecified; Z91.048 Other nonmedicinal substance allergy status; Z87.442 Personal history of urinary calculi; Z88.1 Allergy status to other antibiotic agents; Z88.5 Allergy status to narcotic agent; Z90.49 Acquired absence of other specified parts of digestive tract; Z90.710 Acquired absence of both cervix and uterus; Z98.51 Tubal ligation status
CPT/HCPCS: 36415; 71045; 71045-26; 71275; 71275-26; 80048; 80053; 83690; 83735; 83880; 84145; 84484; 85025; 85379; 93005; 93010; 96374; 96375; 99222; 99231; 99232; 99238; 99284; 99285-25; A9270-GY; J1100; J1650; J2270; J2405; J3480; J3535-GY; J7050; J7120; J8540; Q9967; U0002

== ENCOUNTER 2022-01-20 02:17 | Emergency (ER) | payer OTHER ==
[2022-01-20 02:51] VITALS: BP 111/66; PULSE 78
[2022-01-20] MEDS ORDERED: Ketorolac 30 MG/ML SDV IM STA (03:15)
[2022-01-20] MEDS ORDERED: Cyclobenzaprine 5 MG Tab PO STA (03:15)
[2022-01-20] MEDS ORDERED: Cyclobenzaprine 10 MG Tab PO ONE (03:21)
== END 2022-01-20 03:30 | disposition home or self-care (01) ==
LOC: MW.ED 02:17
DX: S39.012A Strain of muscle, fascia and tendon of lower back, initial encounter (principal); E66.9 Obesity, unspecified; Z68.31 Body mass index [BMI] 31.0-31.9, adult; Z88.5 Allergy status to narcotic agent; Z91.048 Other nonmedicinal substance allergy status; Z88.1 Allergy status to other antibiotic agents; X50.0XXA Overexertion from strenuous movement or load, initial encounter
CPT/HCPCS: 96372; 99283; A9270; J1885; 99282

== ENCOUNTER 2022-06-05 09:51 | Emergency (ER) | payer BC ==
[2022-06-05] MEDS ORDERED: Sodium Chloride 0.9% 10 ML Syringe FLUSH PRN (10:18)
[2022-06-05] MEDS ORDERED: Sodium Chloride 0.9% 1,000 ML IV ONE ×2 (10:18→10:20)
[2022-06-05] MEDS ORDERED: Sodium Chloride 0.9% 2.5 ML Syringe FLUSH PRN (10:18)
[2022-06-05] MEDS ORDERED: Famotidine 20 MG/2 ML SDV IVPUSH ONE (10:18)
[2022-06-05] MEDS ORDERED: Morphine 4 MG/ML Syringe IVPUSH ONE (10:20)
[2022-06-05] MEDS ORDERED: Ondansetron 4 MG/2 ML SDV IVPUSH ONE ×2 (10:20→11:41)
[2022-06-05 11:22] LABS: CARBON DIOXIDE,CO2 28.3 mmol/L (21.0-32.0)
[2022-06-05 11:22] LABS: CORONAVIRUS COVID-19 NAA NEGATIVE (NEGATIVE); INFLUENZA A NAA NEGATIVE (NEGATIVE); INFLUENZA B NAA NEGATIVE (NEGATIVE)
[2022-06-05] MEDS ORDERED: Alum Hydro/Mag Hydro/Simeth XS 15 ML, Lidocaine 2% 5 ML PO ONE ×2 (11:34)
[2022-06-05 14:39] VITALS: BP 117/70
[2022-06-05 14:57] VITALS: PULSE 66
== END 2022-06-05 14:57 | disposition home or self-care (01) ==
LOC: MW.ED 09:51
DX: K21.9 Gastro-esophageal reflux disease without esophagitis (principal); E66.9 Obesity, unspecified; Z68.30 Body mass index [BMI] 30.0-30.9, adult; Z88.1 Allergy status to other antibiotic agents; Z88.5 Allergy status to narcotic agent; Z91.048 Other nonmedicinal substance allergy status; Z79.899 Other long term (current) drug therapy; Z90.49 Acquired absence of other specified parts of digestive tract; Z20.822 Contact with and (suspected) exposure to COVID-19
CPT/HCPCS: 0240U; 36415; 71045; 80053; 83690; 84484; 85025; 85379; 85610; 93005; 96361; 96374; 96375; 96376; 99285; A9270; J2270; J2405; J3490; J7030

== ENCOUNTER 2022-07-13 15:09 | Emergency (ER) | payer OTHER ==
[2022-07-13] MEDS ORDERED: Acetaminophen/HYDROcodone 325-5 MG Tab PO ONE (15:55)
[2022-07-13 18:12] VITALS: BP 130/58; PULSE 78
== END 2022-07-13 18:11 ==
LOC: MW.ED 15:09 → MERGE 15:09 → MW.ED 18:11
DX: S80.02XA Contusion of left knee, initial encounter (principal); Z91.048 Other nonmedicinal substance allergy status; Z88.1 Allergy status to other antibiotic agents; Z88.5 Allergy status to narcotic agent; Z88.8 Allergy status to other drugs, medicaments and biological substances; Z98.890 Other specified postprocedural states; Z79.899 Other long term (current) drug therapy; Z86.16 Personal history of COVID-19; W22.8XXA Striking against or struck by other objects, initial encounter; Y92.89 Other specified places as the place of occurrence of the external cause; Y99.0 Civilian activity done for income or pay
CPT/HCPCS: 73552; 99283; A9270

== ENCOUNTER 2022-07-13 15:10 | Emergency (ER) | payer BC, OTHER | END 2022-07-13 20:27 | disposition home or self-care (01) | LOC: MW.ED 15:10 | DX: Z53.21 Procedure and treatment not carried out due to patient leaving prior to being seen by health care provider (principal) ==

== ENCOUNTER 2023-04-14 18:00 | Emergency (ER) | payer SELFPAY ==
[2023-04-14] MEDS ORDERED: Sodium Chloride 0.9% 2.5 ML Syringe FLUSH PRN (18:10)
[2023-04-14] MEDS ORDERED: Sodium Chloride 0.9% 10 ML Syringe FLUSH PRN (18:10)
[2023-04-14 18:32] LABS: BASOPHILS ABSOLUTE AUTO 0.06 K/uL (0.00-0.20); BASOPHILS PERCENT AUTO 0.7 % (0.0-1.0); EOSINOPHILS ABSOLUTE AUTO 0.23 K/uL (0.00-0.45); EOSINOPHILS PERCENT AUTO 2.8 % (0.0-6.0); HEMATOCRIT 40.4 % (37.0-47.0); HEMOGLOBIN 13.9 g/dL (12.0-16.0); IMMATURE GRAN ABSOLUTE AUTO 0.02 K/uL (0.00-0.05); IMMATURE GRAN PERCENT AUTO 0.2 % (0.0-0.4); LYMPHOCYTES ABSOLUTE AUTO 2.91 K/uL (1.00-4.80); LYMPHOCYTES PERCENT AUTO 35.4 % (24.0-44.0); MEAN CORPUSCULAR HEMOGLOBIN 31.5 pg (28.0-32.0); MEAN CORPUSCULAR HGB CONC 34.4 g/dL (32.0-36.0); MEAN CORPUSCULAR VOLUME 91.6 fL (83.0-99.0); MEAN PLATELET VOLUME 8.9 fL (9.4-12.3); MONOCYTES PERCENT AUTO 6.1 % (0.0-8.0); NEUTROPHILS ABSOLUTE AUTO 4.49 K/uL (1.80-7.70); NEUTROPHILS PERCENT AUTO 54.8 % (41.0-71.0); PLATELET COUNT,PLT 247 K/uL (150-400); RED BLOOD CELL COUNT 4.41 M/uL (4.10-5.30); WHITE BLOOD CELL COUNT,WBC 8.21 K/uL (3.9-11.3)
[2023-04-14 19:16] LABS: A/G RATIO 1.1 (0.9-1.6); ALBUMIN 3.7 g/dL (3.4-5.0); BILIRUBIN TOTAL 0.3 mg/dL (0.2-1.0); CALCIUM 8.8 mg/dL (8.5-10.1); CARBON DIOXIDE,CO2 25.9 mmol/L (21.0-32.0); CREATININE 0.9 mg/dL (0.6-1.0); EST CRCL DRUG DOSING (CG) 50.86 mL/min; POTASSIUM,K 4.1 mmol/L (3.5-5.1); PROTEIN TOTAL,TP 7.1 g/dL (6.4-8.2)
[2023-04-14 19:18] LABS: MAGNESIUM 2.3 mg/dL (1.8-2.4)
[2023-04-14 20:59] VITALS: BP 121/76; PULSE 76
== END 2023-04-14 20:58 | disposition home or self-care (01) ==
LOC: MW.ED 18:00
DX: R07.2 Precordial pain (principal); R07.89 Other chest pain; E66.9 Obesity, unspecified; Z68.30 Body mass index [BMI] 30.0-30.9, adult; Z86.16 Personal history of COVID-19; Z91.048 Other nonmedicinal substance allergy status; Z88.1 Allergy status to other antibiotic agents; Z88.5 Allergy status to narcotic agent; Z88.8 Allergy status to other drugs, medicaments and biological substances
CPT/HCPCS: 36415; 71046; 80053; 83690; 83735; 84484; 85025; 93005; 99285; J3490; 93010; 99282

== ENCOUNTER 2024-04-14 22:10 | Emergency (ER) | payer SELFPAY ==
[2024-04-14] MEDS ORDERED: Sodium Chloride 0.9% 2.5 ML Syringe FLUSH PRN (22:34)
[2024-04-14] MEDS ORDERED: Sodium Chloride 0.9% 10 ML Syringe FLUSH PRN (22:34)
[2024-04-14] MEDS: Sodium Chloride 0.9% 1,000 ML IV ONE (22:50)
[2024-04-14] MEDS: Ondansetron 4 MG/2 ML SDV IVPUSH ONE ×2 (22:52→23:44)
[2024-04-14] MEDS: Famotidine 20 MG/2 ML SDV IVPUSH ONE (22:52)
[2024-04-14] MEDS: Morphine 4 MG/ML Syringe IVPUSH ONE ×2 (22:52→23:44)
[2024-04-14 23:04] LABS: BASOPHILS ABSOLUTE AUTO 0.05 K/uL (0.00-0.20); BASOPHILS PERCENT AUTO 0.4 % (0.0-1.0); EOSINOPHILS ABSOLUTE AUTO 0.08 K/uL (0.00-0.45); EOSINOPHILS PERCENT AUTO 0.6 % (0.0-6.0); HEMATOCRIT 41.2 % (37.0-47.0); HEMOGLOBIN 13.9 g/dL (12.0-16.0); IMMATURE GRAN ABSOLUTE AUTO 0.04 K/uL (0.00-0.05); IMMATURE GRAN PERCENT AUTO 0.3 % (0.0-0.4); LYMPHOCYTES ABSOLUTE AUTO 0.63 K/uL (1.00-4.80); LYMPHOCYTES PERCENT AUTO 4.9 % (24.0-44.0); MEAN CORPUSCULAR HEMOGLOBIN 30.8 pg (28.0-32.0); MEAN CORPUSCULAR HGB CONC 33.7 g/dL (32.0-36.0); MEAN CORPUSCULAR VOLUME 91.2 fL (83.0-99.0); MEAN PLATELET VOLUME 8.8 fL (9.4-12.3); MONOCYTES ABSOLUTE AUTO 0.56 K/uL (0.00-0.80); MONOCYTES PERCENT AUTO 4.4 % (0.0-8.0); NEUTROPHILS ABSOLUTE AUTO 11.44 K/uL (1.80-7.70); NEUTROPHILS PERCENT AUTO 89.4 % (41.0-71.0); PLATELET COUNT,PLT 241 K/uL (150-400); RED BLOOD CELL COUNT 4.52 M/uL (4.10-5.30)
[2024-04-14 23:25] LABS: BILIRUBIN,URINE NEGATIVE (NEGATIVE); COLOR,URINE YELLOW; GLUCOSE,URINE NEGATIVE (NEGATIVE); KETONES,URINE NEGATIVE (NEGATIVE); LEUKOCYTE ESTERASE,URINE MODERATE (NEGATIVE); NITRITE,URINE NEGATIVE (NEGATIVE); OCCULT BLOOD,URINE NEGATIVE (NEGATIVE); PROTEIN,URINE NEGATIVE (NEGATIVE)
[2024-04-14 23:27] LABS: APPEARANCE,URINE HAZY
[2024-04-14 23:31] LABS: RBC,URINE 0-3 (0-2/HPF)
[2024-04-14 23:32] LABS: BACTERIA,URINE 2+ (NEGATIVE); EPITHELIAL CELLS,URINE MODERATE (NONE-FEW)
[2024-04-14 23:34] LABS: A/G RATIO 1.1 (0.9-1.6); ALANINE AMINOTRANSFERASE,ALT 23 IU/L (14-63); ALBUMIN 3.4 g/dL (3.4-5.0); ALKALINE PHOSPHATASE 92 U/L (46-116); ASPARTATE AMNIOTRANSFERASE,AST 22 IU/L (15-37); BILIRUBIN TOTAL 0.6 mg/dL (0.2-1.0); BLOOD UREA NITROGEN,BUN 16 mg/dL (7.0-18.0); CALCIUM 8.7 mg/dL (8.5-10.1); CARBON DIOXIDE,CO2 26.7 mmol/L (21.0-32.0); CHLORIDE,CL 104 mmol/L (98-107); CREATININE 0.9 mg/dL (0.6-1.0); EST CRCL DRUG DOSING (CG) 50.18 mL/min; ETHANOL BLOOD MEDICAL <3 mg/dL; GLUCOSE RANDOM 155 mg/dL (74-106); LIPASE 31 U/L (16-77); PROTEIN TOTAL,TP 6.6 g/dL (6.4-8.2); SODIUM,NA 140 mmol/L (136-145)
[2024-04-14 23:35] LABS: ESTIMATED GFR 70 mL/min (>60)
[2024-04-14] MEDS: Iopamidol 755 MG/ML 500 ML Multipack Bottle IVPUSH ONE (23:57)
[2024-04-15] MEDS: Ketorolac 30 MG/ML SDV IVPUSH STA (00:50)
[2024-04-15] MEDS: Alum Hydrox/Mag Hydrox/Simeth 15 ML, Lidocaine 2% 5 ML PO ONE (00:51)
[2024-04-15] MEDS: Ondansetron 4 MG Tab.DIS PO ONE (03:12)
[2024-04-15 03:23] VITALS: BP 117/55; PULSE 87
== END 2024-04-15 03:21 | disposition home or self-care (01) ==
LOC: MW.ED 22:10
DX: K29.00 Acute gastritis without bleeding (principal); Z90.49 Acquired absence of other specified parts of digestive tract; Z90.710 Acquired absence of both cervix and uterus; Z88.5 Allergy status to narcotic agent; Z88.2 Allergy status to sulfonamides; Z88.8 Allergy status to other drugs, medicaments and biological substances; Z91.048 Other nonmedicinal substance allergy status
CPT/HCPCS: 36415; 71275; 74174; 80053; 80307; 81001; 83690; 83735; 84484; 85025; 93005; 96361; 96374; 96375; 96376; 99285; A9270; J1885; J2270; J2405; J3490; J7030; Q9967; 93010; 99284